=== PATIENT | male | born 1960 | race Caucasian/White ===

== ENCOUNTER 2016-05-20 10:08 | Inpatient (IN) ==
[2016-05-20] MEDS ORDERED: MORPHINE 4 MG/ML SYRINGE IVP PRN (10:21)
[2016-05-20] MEDS ORDERED: ATROPINE SULFATE PFS IVP PRN (10:21)
[2016-05-20] MEDS ORDERED: VISTARIL INJ IM PRN (10:21)
[2016-05-20] MEDS ORDERED: NITROSTAT SL PRN (10:21)
[2016-05-20] MEDS ORDERED: TYLENOL PO PRN (10:21)
[2016-05-20 10:42] VITALS: BMI 34.2
[2016-05-20] MEDS ORDERED: NON-FORMULARY MEDICATION (Nitroglycerin [Nitrostat] 0.3 MG) SL PRN ×22 (10:42)
[2016-05-20] MEDS ORDERED: VASOTEC IV IVP STA (10:43)
[2016-05-20] MEDS ORDERED: VASOTEC IV IVP PRN (10:43)
[2016-05-20] MEDS ORDERED: MINOXIDIL PO STA (10:43)
[2016-05-20 10:44] LABS: ABG BASE EXCESS 9 (-2.0-2.0); ABG PCO2 47.8 mmHg (35-45); ABG PH 7.447 (7.35-7.45); ABG TCO2 34 (22.0-28.0)
[2016-05-20] MEDS ORDERED: OXYCODONE HCL 60 MG PO SCH ×22 (10:44)
[2016-05-20] MEDS ORDERED: MORPHINE SULFATE 60 MG PO SCH (10:44)
[2016-05-20] MEDS ORDERED: VITAMIN B-12 IM SCH (11:00)
[2016-05-20] MEDS: XOPENEX 1.25 MG NEB SCH ×3 (11:14→23:34)
[2016-05-20 11:16] LABS: BASOPHILS # (AUTO) 0.1 K/uL (0-0.2); BASOPHILS % (AUTO) 0.4 % (0.0-3.0); EOSINOPHILS # (AUTO) 0.1 K/ul (0.0-0.7); EOSINOPHILS % (AUTO) 1.1 % (0.0-7.0); HEMOGLOBIN 14.6 g/dl (14.0-18.0); IMMATURE GRANULOCYTE % (AUTO) 0.3 % (0.0-5.0); LYMPHOCYTES % (AUTO) 17.9 (10.0-50.0); MEAN CORPUSCULAR HEMOGLOBIN 24.7 pg (27.0-31.0); MEAN CORPUSCULAR HGB CONC 31.1 (31.8-35.4); MEAN CORPUSCULAR VOLUME 79.5 fl (80.0-94.0); MONOCYTES # (AUTO) 0.6 K/uL (0.4-2.0); MONOCYTES % (AUTO) 5.5 (0-10); NEUTROPHILS # (AUTO) 8.6 K/ul (2.0-6.9); NEUTROPHILS % (AUTO) 74.8; PLATELET COUNT 174 10^3/uL (140-440); RED BLOOD COUNT 5.91 10^6/ul (4.70-6.10); WHITE BLOOD COUNT 11.42 K/ul (4.2-10.2)
[2016-05-20] MEDS: ROCEPHIN 1 GM in SODIUM CHLORIDE 100 ML IV SCH (11:22)
[2016-05-20] MEDS: TUSSIONEX PO SCH ×2 (11:23→20:21)
[2016-05-20] MEDS: SOLU-CORTEF 250 MG IVP SCH ×4 (11:26→20:30)
[2016-05-20] MEDS: OXYCODONE PO SCH ×2 (11:54→20:22)
[2016-05-20 12:01] LABS: ALBUMIN 3.6 g/dL (3.4-5.0); ALBUMIN/GLOBULIN RATIO 0.88; ANION GAP 14.2; BILIRUBIN,TOTAL 0.52 mg/dL (0.00-1.20); BUN/CREATININE RATIO 9.82; CALCIUM 9.5 mg/dL (8.2-10.2); CREATININE 1.12 mg/dL (0.60-1.10); POTASSIUM 3.2 mmol/L (3.5-5.1); TOTAL PROTEIN 7.7 g/dL (6.4-8.2); TROPONIN I 0.025 ng/ml (0.0000-0.4000)
[2016-05-20 12:27] LABS: CREATINE KINASE MB 3.8 ng/ml (0.0-3.6)
[2016-05-20] MEDS: ZITHROMAX 500 MG in SODIUM CHLORIDE 250 ML IV SCH (12:45)
[2016-05-20 13:17] LABS: BILIRUBIN,URINE Negative (NEGATIVE); KETONES,URINE Negative (NEGATIVE); LEUKOCYTE ESTERASE ,URINE Negative (NEGATIVE); NITRITE,URINE Negative (NEGATIVE); PROTEIN,URINE 1+ (NEGATIVE); URINE, BLOOD 2+ (NEGATIVE)
[2016-05-20 13:20] LABS: ADD URINE MICROSCOPIC YES
--- NOTE | 2016-05-20 13:44 | DI ---
Examination: Single radiographic image of the chest. Comparison: 07/22/2015. Reason for study: Hypertension. FINDINGS: Interpretation is somewhat limited by poor inspiratory volume. The cardiac silhouette is unchanged. A loop of large bowel is seen underneath the left hemidiaphragm that obscures evaluatio n of the left costophrenic angle. The right lung is clear. Old granulomas disease is seen througho ut the parenchyma. Impression: 1. No acute cardiopulmonary process is seen in the imaged portions of the chest. 2. Evaluation of the left costophrenic angle is limited secondary to overlying large intestine.
[2016-05-20 19:10] LABS: TROPONIN I 0.026 ng/ml (0.0000-0.4000)
[2016-05-20 19:15] LABS: CREATINE KINASE MB 2.8 ng/ml (0.0-3.6)
[2016-05-20] MEDS: PAMELOR PO SCH (20:16)
[2016-05-20] MEDS: DESYREL PO SCH (20:18)
[2016-05-20] MEDS: XANAX PO SCH (20:19)
[2016-05-20] MEDS: MS CONTIN PO SCH (20:20)
[2016-05-20] MEDS: AMBIEN PO SCH (20:21)
[2016-05-20] MEDS ORDERED: CATAPRES PO SCH (21:00)
[2016-05-20] MEDS ORDERED: PAMELOR PO SCH (21:00)
[2016-05-20] MEDS ORDERED: LOPRESSOR PO SCH (21:00)
[2016-05-20] MEDS ORDERED: NON-FORMULARY MEDICATION (Zolpidem Tartrate [Ambien] 10 MG) PO SCH (21:00)
[2016-05-20] MEDS ORDERED: NON-FORMULARY MEDICATION (Clonidine Hcl [Clonidine Hcl] 0.3 MG) PO SCH (21:00)
[2016-05-20] MEDS ORDERED: TRAZODONE HCL 150 MG PO SCH ×22 (21:00)
[2016-05-20] MEDS ORDERED: NORVASC PO SCH (21:00)
[2016-05-21] MEDS: XOPENEX 1.25 MG NEB SCH ×4 (05:04→22:50)
[2016-05-21] MEDS: SOLU-CORTEF 250 MG IVP SCH ×3 (06:49→22:50)
[2016-05-21] MEDS: LASIX TAB PO SCH (06:49)
[2016-05-21] MEDS: PROTONIX PO SCH (06:50)
[2016-05-21] MEDS ORDERED: ASPIRIN CHEWABLE PO SCH (08:00)
[2016-05-21] MEDS ORDERED: LOPRESSOR PO STA (08:20)
[2016-05-21] MEDS: OXYCODONE PO SCH ×3 (08:35→21:19)
[2016-05-21] MEDS: MS CONTIN PO SCH ×2 (08:36→21:18)
[2016-05-21] MEDS: TUSSIONEX PO SCH ×2 (08:36→21:13)
[2016-05-21] MEDS: LIPITOR PO SCH (08:36)
[2016-05-21] MEDS: ASPIRIN EC PO SCH (08:37)
[2016-05-21] MEDS: LEXAPRO PO SCH (08:37)
[2016-05-21] MEDS: ALDACTONE PO SCH (08:37)
[2016-05-21] MEDS: ZAROXOLYN PO SCH (08:37)
[2016-05-21] MEDS: K-DUR PO SCH ×3 (08:38→21:17)
[2016-05-21] MEDS: PLAVIX PO SCH (08:38)
[2016-05-21] MEDS: XANAX PO SCH ×2 (08:38→21:18)
[2016-05-21] MEDS: ROCEPHIN 1 GM in SODIUM CHLORIDE 100 ML IV SCH (08:38)
[2016-05-21 08:39] LABS: BASOPHILS % (AUTO) 0.2 % (0.0-3.0); HEMATOCRIT 43.3 % (42.0-52.0); HEMOGLOBIN 13.5 g/dl (14.0-18.0); IMMATURE GRANULOCYTE % (AUTO) 0.6 % (0.0-5.0); LYMPHOCYTES # (AUTO) 1.1 K/uL (0.60-3.4); MEAN CORPUSCULAR HGB CONC 31.2 (31.8-35.4); MEAN CORPUSCULAR VOLUME 80.2 fl (80.0-94.0); MONOCYTES # (AUTO) 0.3 K/uL (0.4-2.0); MONOCYTES % (AUTO) 2.3 (0-10); NEUTROPHILS # (AUTO) 11.1 K/ul (2.0-6.9); NEUTROPHILS % (AUTO) 87.9; PLATELET COUNT 176 10^3/uL (140-440)
[2016-05-21] MEDS: CATAPRES PO SCH ×2 (08:39→21:15)
[2016-05-21 08:59] LABS: ALBUMIN/GLOBULIN RATIO 0.83; ANION GAP 13.2; BILIRUBIN,TOTAL 0.4 mg/dL (0.00-1.20); BUN/CREATININE RATIO 9.31; CREATININE 2.04 mg/dL (0.60-1.10); POTASSIUM 3.2 mmol/L (3.5-5.1); TOTAL PROTEIN 6.6 g/dL (6.4-8.2)
[2016-05-21] MEDS ORDERED: NON-FORMULARY MEDICATION (Atorvastatin Calcium [Lipitor] 80 MG) PO SCH ×22 (09:00)
[2016-05-21] MEDS ORDERED: PANTOPRAZOLE SODIUM 20 MG PO SCH ×22 (09:00)
[2016-05-21] MEDS: ZITHROMAX 500 MG in SODIUM CHLORIDE 250 ML IV SCH (09:42)
--- NOTE | 2016-05-21 11:54 | HP ---
DATE OF SERVICE: 05/20/16 REASON FOR HOSPITALIZATION: Cough and congestion times four days with fever HISTORY OF PRESENT ILLNESS: This is a 55-year-old male with complaints of cough and congestion with fever times four days, fatigue, tired times three days. Cough is productive of yellowish sputum. The patient's appetite is not good with left pleuritic pain. Blood pressure is elevated without symptoms of CAD. REVIEW OF SYSTEMS: CONSTITUTIONAL: Fever and fatigue. HEENT: Sinus drainage. No sore throat. RESPIRATORY: Cough and congestion. No hemoptysis. CARDIOVASCULAR: Shortness of breath. Atypical chest pain for coronary artery disease, pleuritic in type. No angina, CHF symptoms, or palpitations. GASTROINTESTINAL: No melena or abdominal pain. No GERD. GENITOURINARY: No hematuria, no prostatism, no polyuria. 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 No blackout, no headache, no double vision. MUSCULOSKELETAL: Osteoarthritis pain. No joint swelling. ENDOCRINE: No weight loss, no weight gain. SKIN: Not dry, no rash. PSYCHIATRIC: Anxious. No depression, no suicidal thoughts, no homicidal thoughts. PAST MEDICAL HISTORY: Hypertension Chronic kidney disease Migraines Chronic back pain [place] COPD Dyslipidemia Stenosis with stent CAD B12 deficiency anemia Depression Sleep apnea on CPAP PAST SURGICAL HISTORY: Back surgery 2000 Renal artery stent 2000, 2002 and 2006 Gallbladder 2004 Hernia 2004 SOCIAL HISTORY: Smoker - one pack per day for 25 years; ; no alcohol use. No ilicit drug use. Three children. Disabled. FAMILY HISTORY: Father age 69 with CVA and hypertension. Mother at age 68 with [place]. Two brothers and three sisters. MEDICATIONS: (Home) Atorvastatin (Lipitor) 80 mg p.o. daily Aspirin 81 mg p.o. daily with meal Furosemide (Lasix) 40 mg p.o. daily Nitroglycerin 0.3 mg SL p.r.n. Amlodipine (Norvasc) 5 mg p.o. b.i.d. Trazodone (Oleptro ER) 150 mg p.o. bedtime Clopidogrel (Plavix) 75 mg p.o. daily Alprazolam (Xanax) 0.5 mg p.o. b.i.d. Metoprolol (Lopressor) 100 mg p.o. b.i.d. Escitalopram (Lexapro) 20 mg p.o. daily Oxycodone (Oxy-IR) 60 mg p.o. t.i.d. Morphine Sulfate (MS Contin) 60 mg p.o. q.12hr Nortriptyline (Pamelor) 50 mg p.o. bedtime Pantoprazole (Protonix) 20 mg p.o. daily Metolazone (Zaroxolyn) 2.5 mg p.o. daily Cyanocobalamin (Vitamin B12) 1000 mg IM monthly Zolpidem (Ambien) 10 mg p.o. bedtime Spironolactone (Aldactone) 25 mg p.o. daily Clonidine 0.3 mg p.o. b.i.d. ALLERGIES: LISINOPRIL, BACLOFEN PHYSICAL EXAMINATION: V/S: Pulse 108, B/P 202/120, temperature 99 degrees, 02 sat 95%. Weight 259.4 pounds, height 6'1". GENERAL APPEARANCE: Oriented times three. Pallor positive. Dry skin. HEENT: Normal. NECK: No JVP, no bruits. RESPIRATORY: Decreased breath sounds eft side. CARDIOVASCULAR: S1, S2, no S3, no murmurs. No cyanosis, clubbing. No ascites. GI/ABDOMEN: No tenderness. Bowel sounds are active. EXTREMITIES: No edema, pulses +1, equal. 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 RECTAL/PROSTATE: Colonoscopy [address] Shaver. Prostate 09/13 (0.5), PSA (2.1) Dr. Nolasco follows. ASSESSMENT: 1. LEFT PNEUMONITIS/BRONCHITIS 2. SEVERE HYPERTENSION 3. DEHYDRATION 4. COPD/SMOKING 5. HISTORY OF HYPERTENSION 6. MIGRAINE HEADACHE, DR. SANTOS 7. DYSLIPIDEMIA 8. DEPRESSION 9. CKD 10. CAD STATUS POST STENTS 11. SLEEP APNEA - CPAP 12. L-SPINE SURGERY 13. LEG EDEMA PLAN: 1. Admit with routine telemetry orders 2. Solu-Cortef 125 mg IV now and q.8hourly 3. Rocephin 1 gm IVPB q.24hourly 4. Zithromax 500 mg p.o. daily times three days 5. Sputum for C & S 6. Blood cultures times two 7. Nebs - Xopenex q.i.d. 8. Elevate legs 9. Continue all medications 10. Daily weight 11. Tussionex one teaspoon p.o. b.i.d. 12. BNP, TSH 13. Daily labs 14. Continue all medications EDUCATION CARRIED OUT ABOUT: Diabetes mellitus and its complications, hypertension and its complications, CAD and its risk factors. Counseling for smoking done. JNC for hypertension discussed. ADA guidelines for lipids, BP and A1C. TIME SPENT: More than 70 minutes. MTDD
--- NOTE | 2016-05-21 13:42 | PCM.PROG ---
Attending Provider: ATTENDING PROVIDER: Dr. CARLOS DE LA PAZ DATE OF SERVICE: 05/21/16 SUBJECTIVE: This 55 year old WHITE/ M was hospitalized 05/20/16. The patient is hospitalized with bronchitis/pneumonitis, severe hypertension and dehydration. The patient's condition improved remarkably. Skin turgor is better, appetite is better. No bronchitis symptoms now. The problem currently is hypotension which is asymptomatic. Will scale back all medications. REVIEW OF SYSTEMS: CONSTITUTIONAL: No night sweats. No fatigue, malaise, lethargy. No fever or chills. HEENT: Eyes: No visual changes. No eye pain. No eye discharge. ENT: No runny nose. No epistaxis. No sinus pain. No odynophagia. No congestion. RESPIRATORY: No cough, no congestion. No hemoptysis. CARDIOVASCULAR: No angina symptoms. No CHF symptoms. No atypical chest pain for CAD. No palpitations. No shortness of breath. GASTROINTESTINAL: Appetite is better. No abdominal pain. No nausea or vomiting. No diarrhea or constipation. No hematemesis. No hematochezia. GENITOURINARY: No urgency. No frequency. No dysuria. No hematuria. No obstructive symptoms. No discharge. No pain. No significant abnormal bleeding. MUSCULOSKELETAL: No musculoskeletal pain; no joint swelling. NEUROLOGICAL: Awake, alert, oriented to time, place and person. No headache. No neck pain. No syncope. No seizures. No dizziness. PSYCHIATRIC: Not anxious. No depression. No suicidal thoughts. No homicidal thoughts. SKIN: No rash. No lesions. No wounds. ENDOCRINE: No unexplained weight loss. No weight gain. HEMATOLOGIC/LYMPHATIC: No anemia. No purpura. No petechiae. No prolonged or excessive bleeding. No palpable lymph nodes. PHYSICAL EXAMINATION: GENERAL: The patient is awake, alert and oriented, sitting in bed in no distress. VITAL SIGNS: Temperature 96.8 F, Pulse 54, Respiratory Rate 20, BP 97/53, Pulse Ox 96% HEENT: Head normocephalic, atraumatic. Eyes: Extraocular muscles are intact. Pupils are equal, round and reactive to light and accommodation. Ears: No lesions. Nose appeared normal. Throat: No exudate or erythema. NECK: Supple. No JVD, no carotid bruit. No lymphadenopathy or thyromegaly. LUNGS: Decreased breath sounds. Clear to auscultation. Percussion note normal. Chest symmetrical. HEART: S1, S2, no S3. No murmurs. No cyanosis or clubbing. No ascites. Pulses: Dorsalis pedis and posterior tibial pulses +1 to +2 both sides. ABDOMEN: Soft. Non-tender. Bowel sounds active. No CVA tenderness. No mass felt. EXTREMITIES: No edema. Full range of motion of all extremities, equal. NEUROLOGIC: No focal deficit. Cranial nerves II through XII are grossly intact. No headache, no double vision or headache. SKIN: Not dry. Intact. Turgor-normal. LYMPHATIC: No palpable lymph nodes/no lymphedema. MUSCULOSKELETAL: Normal joints with no swelling. Muscle tone is normal. LAB REVIEW: 05/20/16 11:00 05/20/16 11:00 05/20/16 18:30: Total Creatine Kinase 165, CK-MB (CK-2) 2.8, CK-MB (CK-2) % 1.43604, Myoglobin 112, Troponin I 0.0260 05/20/16 13:09: Urine Color Yellow, Urine Clarity Clear, Urine pH 7.0, Ur Specific [place] 1.015, Urine Protein 1+, Urine Glucose (UA) Negative, Urine Ketones Negative, Urine Blood 2+, Urine Nitrite Negative, Urine Bilirubin Negative, Urine Urobilinogen 0.2, Ur Leukocyte Esterase Negative, Urine Microscopic RBC 10-20, Urine Microscopic WBC 0-2, Ur Squamous Epith Cells 2-5 05/20/16 11:00: WBC 11.42 H, RBC 5.91, Hgb 14.6, Hct 47.0, MCV 79.5 L, MCH 24.7 L, MCHC 31.1 L, RDW Coeff of Lety 15.0 H, Plt Count 174, Immature Gran % (Auto) 0.3, Neut % (Auto) 74.8, Lymph % (Auto) 17.9, [place] % (Auto) 5.5, Eos % (Auto) 1.1, Baso % (Auto) 0.4, Immature Gran # (Auto) 0.0, Neut # 8.6 H, Lymph # 2.0, [place] # 0.6, Eos # 0.1, Baso # 0.1, Sodium 139, Potassium 3.2 L, Chloride 94 L, Carbon Dioxide 34 H, Anion Gap 14.2, BUN 11, Creatinine 1.12 H, Estimated GFR ( MDRD) 68.00, BUN/Creatinine Ratio 9.82, Glucose 83, Calcium 9.5, Total Bilirubin 0.52, AST 21, ALT 13, Alkaline Phosphatase 117, Total Creatine Kinase 210, CK-MB (CK-2) 3.8 H, CK-MB (CK-2) % 1.50079, Myoglobin 133, Troponin I 0.0250, B-Natriuretic Peptide 129 H, Total Protein 7.7, Albumin 3.6, Globulin 4.1, Albumin/Globulin Ratio 0.88, TSH 1.593 05/20/16 10:40: Puncture Site R rad, O2 Saturation 92.0 L, ABG pH 7.447, ABG pCO2 47.8 H, ABG pO2 61.0 L, ABG HCO3 33.0 H, ABG Total CO2 34 H, ABG Base Excess 9 H, Samuel Test +, FiO2 % 21.0 ASSESSMENT: 1. Bronchitis/pneumonitis resolving 2. Hypertension controlled 3. Chronic kidney disease controlled 4. Hypokalemia, will give K-Dur 20 mEq t.i.d. PLAN: 1. Daily CBC 2. Discontinue IV fluids 3. Lopressor 50 mg this morning instead of 100 4. Hold Minoxidil 5. Hold Norvasc 6. Catapres 0.2 mg twice a day but hold if blood pressure is less than 130 7. Monitor blood pressure Plan and coordination of the patient's care discussed in the presence of District Sales Leader and nurse. CONDITION: Stable SCRIBED BY: DIANA DIXON Template Fitter scribed while in presence of service performed by Dr. CARLOS DE LA PAZ on 05/21/16 ([id number])
[2016-05-21] MEDS: LOPRESSOR PO SCH (21:16)
[2016-05-21] MEDS: DESYREL PO SCH (21:17)
[2016-05-21] MEDS: PAMELOR PO SCH (21:20)
[2016-05-21] MEDS: AMBIEN PO SCH (21:21)
[2016-05-22] MEDS: XOPENEX 1.25 MG NEB SCH ×4 (05:01→23:08)
[2016-05-22] MEDS: SOLU-CORTEF 250 MG IVP SCH ×3 (06:00→21:09)
[2016-05-22 06:14] LABS: BASOPHILS % (AUTO) 0.1 % (0.0-3.0); HEMATOCRIT 42.1 % (42.0-52.0); HEMOGLOBIN 13.4 g/dl (14.0-18.0); IMMATURE GRANULOCYTE % (AUTO) 0.4 % (0.0-5.0); LYMPHOCYTES # (AUTO) 1.8 K/uL (0.60-3.4); LYMPHOCYTES % (AUTO) 12.5 (10.0-50.0); MEAN CORPUSCULAR HEMOGLOBIN 24.7 pg (27.0-31.0); MEAN CORPUSCULAR HGB CONC 31.8 (31.8-35.4); MEAN CORPUSCULAR VOLUME 77.7 fl (80.0-94.0); MONOCYTES # (AUTO) 0.4 K/uL (0.4-2.0); MONOCYTES % (AUTO) 2.7 (0-10); NEUTROPHILS # (AUTO) 11.8 K/ul (2.0-6.9); NEUTROPHILS % (AUTO) 84.3; PLATELET COUNT 189 10^3/uL (140-440); RED BLOOD COUNT 5.42 10^6/ul (4.70-6.10); WHITE BLOOD COUNT 14.01 K/ul (4.2-10.2)
[2016-05-22] MEDS: LASIX TAB PO SCH (06:14)
[2016-05-22] MEDS: PROTONIX PO SCH (06:14)
[2016-05-22] MEDS: OXYCODONE PO SCH ×3 (06:15→21:48)
[2016-05-22 06:34] LABS: ALBUMIN/GLOBULIN RATIO 0.83; ANION GAP 13.3; BILIRUBIN,TOTAL 0.42 mg/dL (0.00-1.20); BUN/CREATININE RATIO 16.66; CALCIUM 8.9 mg/dL (8.2-10.2); CREATININE 1.44 mg/dL (0.60-1.10); POTASSIUM 3.3 mmol/L (3.5-5.1); TOTAL PROTEIN 6.6 g/dL (6.4-8.2)
[2016-05-22] MEDS: ASPIRIN EC PO SCH (09:07)
[2016-05-22] MEDS: MS CONTIN PO SCH ×2 (09:08→20:26)
[2016-05-22] MEDS: PLAVIX PO SCH (09:08)
[2016-05-22] MEDS: LEXAPRO PO SCH (09:10)
[2016-05-22] MEDS: LIPITOR PO SCH (09:11)
[2016-05-22] MEDS: ZAROXOLYN PO SCH (09:13)
[2016-05-22] MEDS: K-DUR PO SCH ×4 (09:15→20:26)
[2016-05-22] MEDS: CATAPRES PO SCH ×2 (09:16→20:25)
[2016-05-22] MEDS: ALDACTONE PO SCH (09:16)
[2016-05-22] MEDS: TUSSIONEX PO SCH ×2 (09:17→20:27)
[2016-05-22 09:25] LABS: BILIRUBIN,URINE Negative (NEGATIVE); KETONES,URINE Negative (NEGATIVE); LEUKOCYTE ESTERASE ,URINE Negative (NEGATIVE); NITRITE,URINE Negative (NEGATIVE); PH,URINE 5.5 (5-9); PROTEIN,URINE Negative (NEGATIVE); URINE, BLOOD Trace-lysed (NEGATIVE)
[2016-05-22 09:27] LABS: ADD URINE MICROSCOPIC YES
[2016-05-22] MEDS: ROCEPHIN 1 GM in SODIUM CHLORIDE 100 ML IV SCH (09:42)
[2016-05-22] MEDS: FLOMAX PO SCH (10:01)
[2016-05-22] MEDS: XANAX PO SCH ×2 (10:03→20:27)
[2016-05-22] MEDS: LOPRESSOR PO SCH ×2 (10:04→20:25)
[2016-05-22] MEDS: ZITHROMAX 500 MG in SODIUM CHLORIDE 250 ML IV SCH (10:53)
[2016-05-22] MEDS: MIRALAX PO SCH (13:00)
[2016-05-22] MEDS: PAMELOR PO SCH (20:24)
[2016-05-22] MEDS: DESYREL PO SCH (20:25)
[2016-05-22] MEDS: AMBIEN PO SCH (20:26)
[2016-05-23] MEDS: SOLU-CORTEF 250 MG IVP SCH ×3 (04:07→20:36)
[2016-05-23] MEDS: XOPENEX 1.25 MG NEB SCH ×3 (05:06→17:07)
[2016-05-23] MEDS: OXYCODONE PO SCH ×3 (06:12→22:11)
[2016-05-23] MEDS: LASIX TAB PO SCH (06:12)
[2016-05-23] MEDS: PROTONIX PO SCH (06:12)
[2016-05-23 07:31] LABS: BASOPHILS % (AUTO) 0.1 % (0.0-3.0); HEMATOCRIT 40.8 % (42.0-52.0); HEMOGLOBIN 13.1 g/dl (14.0-18.0); IMMATURE GRANULOCYTE % (AUTO) 0.7 % (0.0-5.0); LYMPHOCYTES # (AUTO) 1.2 K/uL (0.60-3.4); LYMPHOCYTES % (AUTO) 11.4 (10.0-50.0); MEAN CORPUSCULAR HEMOGLOBIN 24.7 pg (27.0-31.0); MEAN CORPUSCULAR HGB CONC 32.1 (31.8-35.4); MONOCYTES # (AUTO) 0.3 K/uL (0.4-2.0); NEUTROPHILS # (AUTO) 8.8 K/ul (2.0-6.9); NEUTROPHILS % (AUTO) 84.8; PLATELET COUNT 177 10^3/uL (140-440); WHITE BLOOD COUNT 10.33 K/ul (4.2-10.2)
[2016-05-23 08:07] LABS: ALBUMIN/GLOBULIN RATIO 0.83; ANION GAP 11.8; BILIRUBIN,TOTAL 0.37 mg/dL (0.00-1.20); BUN/CREATININE RATIO 20.66; CALCIUM 8.7 mg/dL (8.2-10.2); CREATININE 1.21 mg/dL (0.60-1.10); POTASSIUM 3.8 mmol/L (3.5-5.1); TOTAL PROTEIN 6.6 g/dL (6.4-8.2)
[2016-05-23] MEDS: MS CONTIN PO SCH ×2 (08:19→20:37)
[2016-05-23] MEDS: CATAPRES PO SCH ×2 (08:19→20:37)
[2016-05-23] MEDS: FLOMAX PO SCH (08:19)
[2016-05-23] MEDS: LIPITOR PO SCH (08:19)
[2016-05-23] MEDS: LOPRESSOR PO SCH ×2 (08:19→20:38)
[2016-05-23] MEDS: PLAVIX PO SCH (08:20)
[2016-05-23] MEDS: LEXAPRO PO SCH (08:20)
[2016-05-23] MEDS: ZAROXOLYN PO SCH (08:20)
[2016-05-23] MEDS: ALDACTONE PO SCH (08:20)
[2016-05-23] MEDS: XANAX PO SCH ×2 (08:20→20:37)
[2016-05-23] MEDS: K-DUR PO SCH ×4 (08:20→20:38)
[2016-05-23] MEDS: ASPIRIN EC PO SCH (08:20)
[2016-05-23] MEDS: TUSSIONEX PO SCH ×2 (08:21→20:36)
[2016-05-23] MEDS: ROCEPHIN 1 GM in SODIUM CHLORIDE 100 ML IV SCH (08:21)
[2016-05-23] MEDS: MIRALAX PO SCH (08:21)
[2016-05-23] MEDS ORDERED: CITRATE OF MAGNESIA PO STA (12:03)
[2016-05-23] MEDS ORDERED: SODIUM CHLORIDE 500 ML IV SCH (12:30)
[2016-05-23] MEDS: SODIUM CHLORIDE 1,000 ML IV SCH (18:56)
[2016-05-23] MEDS: AMBIEN PO SCH (20:37)
[2016-05-23] MEDS: DESYREL PO SCH (20:38)
[2016-05-23] MEDS: PAMELOR PO SCH (20:39)
[2016-05-24] MEDS: XOPENEX 1.25 MG NEB SCH ×5 (00:09→23:24)
[2016-05-24] MEDS: SOLU-CORTEF 250 MG IVP SCH ×3 (05:41→20:13)
[2016-05-24] MEDS: PROTONIX PO SCH (05:41)
[2016-05-24] MEDS: OXYCODONE PO SCH ×3 (05:42→21:42)
[2016-05-24 07:22] LABS: BASOPHILS % (AUTO) 0.1 % (0.0-3.0); HEMATOCRIT 42.1 % (42.0-52.0); HEMOGLOBIN 13.5 g/dl (14.0-18.0); IMMATURE GRANULOCYTE % (AUTO) 0.2 % (0.0-5.0); LYMPHOCYTES # (AUTO) 1.4 K/uL (0.60-3.4); LYMPHOCYTES % (AUTO) 16.1 (10.0-50.0); MEAN CORPUSCULAR HEMOGLOBIN 24.8 pg (27.0-31.0); MEAN CORPUSCULAR HGB CONC 32.1 (31.8-35.4); MEAN CORPUSCULAR VOLUME 77.2 fl (80.0-94.0); MONOCYTES # (AUTO) 0.5 K/uL (0.4-2.0); MONOCYTES % (AUTO) 6.1 (0-10); NEUTROPHILS # (AUTO) 6.6 K/ul (2.0-6.9); NEUTROPHILS % (AUTO) 77.5; PLATELET COUNT 187 10^3/uL (140-440); RED BLOOD COUNT 5.45 10^6/ul (4.70-6.10); WHITE BLOOD COUNT 8.57 K/ul (4.2-10.2)
[2016-05-24 07:56] LABS: ALBUMIN 2.7 g/dL (3.4-5.0); ALBUMIN/GLOBULIN RATIO 0.77; ANION GAP 9.9; BILIRUBIN,TOTAL 0.28 mg/dL (0.00-1.20); BUN/CREATININE RATIO 20.17; CALCIUM 8.4 mg/dL (8.2-10.2); CREATININE 1.14 mg/dL (0.60-1.10); POTASSIUM 3.9 mmol/L (3.5-5.1); TOTAL PROTEIN 6.2 g/dL (6.4-8.2)
[2016-05-24] MEDS: MS CONTIN PO SCH ×2 (08:32→21:42)
[2016-05-24] MEDS: XANAX PO SCH ×2 (08:32→21:42)
[2016-05-24] MEDS: MIRALAX PO SCH (08:32)
[2016-05-24] MEDS: ROCEPHIN 1 GM in SODIUM CHLORIDE 100 ML IV SCH (08:32)
[2016-05-24] MEDS: TUSSIONEX PO SCH ×2 (08:33→21:43)
[2016-05-24] MEDS: LOPRESSOR PO SCH ×2 (08:33→21:40)
[2016-05-24] MEDS: K-DUR PO SCH ×4 (08:33→21:41)
[2016-05-24] MEDS: PLAVIX PO SCH (08:34)
[2016-05-24] MEDS: ASPIRIN EC PO SCH (08:34)
[2016-05-24] MEDS: LIPITOR PO SCH (08:34)
[2016-05-24] MEDS: LEXAPRO PO SCH (08:34)
[2016-05-24] MEDS: FLOMAX PO SCH (08:34)
[2016-05-24] MEDS: CATAPRES PO SCH ×2 (08:54→21:41)
[2016-05-24] MEDS ORDERED: CITRATE OF MAGNESIA PO STA (10:01)
[2016-05-24] MEDS ORDERED: DULCOLAX RC STA (10:01)
[2016-05-24] MEDS: SODIUM CHLORIDE 1,000 ML IV SCH ×2 (10:22→23:42)
[2016-05-24] MEDS ORDERED: DULCOLAX RC ONE (12:52)
[2016-05-24] MEDS: DESYREL PO SCH (21:41)
[2016-05-24] MEDS: PAMELOR PO SCH (21:41)
[2016-05-24] MEDS: AMBIEN PO SCH (21:43)
[2016-05-24] MEDS: OMNICEF PO SCH (21:43)
[2016-05-25] MEDS: XOPENEX 1.25 MG NEB SCH ×4 (05:04→23:24)
[2016-05-25 05:06] LABS: BASOPHILS % (AUTO) 0.1 % (0.0-3.0); EOSINOPHILS % (AUTO) 0.1 % (0.0-7.0); HEMATOCRIT 42.9 % (42.0-52.0); HEMOGLOBIN 13.4 g/dl (14.0-18.0); IMMATURE GRANULOCYTE % (AUTO) 0.4 % (0.0-5.0); LYMPHOCYTES # (AUTO) 1.9 K/uL (0.60-3.4); LYMPHOCYTES % (AUTO) 18.9 (10.0-50.0); MEAN CORPUSCULAR HEMOGLOBIN 24.6 pg (27.0-31.0); MEAN CORPUSCULAR HGB CONC 31.2 (31.8-35.4); MEAN CORPUSCULAR VOLUME 78.7 fl (80.0-94.0); MONOCYTES # (AUTO) 0.7 K/uL (0.4-2.0); MONOCYTES % (AUTO) 6.8 (0-10); NEUTROPHILS # (AUTO) 7.5 K/ul (2.0-6.9); NEUTROPHILS % (AUTO) 73.7; PLATELET COUNT 184 10^3/uL (140-440); RED BLOOD COUNT 5.45 10^6/ul (4.70-6.10); WHITE BLOOD COUNT 10.22 K/ul (4.2-10.2)
[2016-05-25 05:29] LABS: ALBUMIN 2.6 g/dL (3.4-5.0); ALBUMIN/GLOBULIN RATIO 0.81; ANION GAP 9.6; BILIRUBIN,TOTAL 0.21 mg/dL (0.00-1.20); CALCIUM 8.4 mg/dL (8.2-10.2); CREATININE 1.05 mg/dL (0.60-1.10); POTASSIUM 4.6 mmol/L (3.5-5.1); TOTAL PROTEIN 5.8 g/dL (6.4-8.2)
[2016-05-25] MEDS: SOLU-CORTEF 250 MG IVP SCH ×3 (05:36→20:18)
[2016-05-25] MEDS: PROTONIX PO SCH (05:36)
[2016-05-25] MEDS: OXYCODONE PO SCH ×3 (06:59→22:22)
--- NOTE | 2016-05-25 09:20 | PN ---
DATE OF SERVICE: 05/24/16 SUBJECTIVE: The patient is a 55 year old white male hospitalized with bronchitis/ pneumonitis which has practically resolved and all under control with antibiotics and steroids and NEBS treatment. The patient's other problem was severe, hypertension which is under control at present time. Blood pressure 126/ 70. The patient has been taken off some of the medication because he was noted to be hypotension. The problem with the patient is that he doesn't take his medications regularly but as soon as you enter him into the hospital and give him the same medication he becomes hypotensive. The patient is a heavy smoker. Counseling for smoking done. The patient has good urine output. REVIEW OF SYSTEMS: CONSTITUTIONAL: No night sweats. No fatigue, malaise, lethargy. No fever or chills. HEENT: Eyes: No visual changes. No eye pain. No eye discharge. ENT: No runny nose. No epistaxis. No sinus pain. No sore throat. No odynophagia. No congestion. RESPIRATORY: No cough, no congestion. No hemoptysis. CARDIOVASCULAR: No angina symptoms. No CHF symptoms. No atypical chest pain for CAD. No palpitations. No shortness of breath. GASTROINTESTINAL: No abdominal pain. No nausea or vomiting. No diarrhea or constipation. No hematemesis. No hematochezia. GENITOURINARY: No urgency. No frequency. No dysuria. No hematuria. No obstructive symptoms. No discharge. No pain. No significant abnormal bleeding. MUSCULOSKELETAL: No musculoskeletal pain; no joint swelling. NEUROLOGICAL: No headache. No neck pain. No syncope. No seizures. No dizziness. PSYCHIATRIC: Not anxious. No depression. No suicidal thoughts. No homicidal thoughts. SKIN: No rash. No lesions. No wounds. ENDOCRINE: No unexplained weight loss. No weight gain. HEMATOLOGIC/LYMPHATIC: No anemia. No purpura. No petechiae. No prolonged or excessive bleeding. No palpable lymph nodes. PHYSICAL EXAMINATION: GENERAL: The patient is oriented to time, place and person. VITAL SIGNS: Temperature 97.6, pulse 44-50, respiratory rate 12, blood pressure 124/70 and pulse ox 100%. HEENT: Head normocephalic, atraumatic. Eyes: Extraocular muscles are intact. Pupils are equal, round and reactive to light and accommodation. Ears: No lesions. Nose appeared normal. Throat: No exudate or erythema. NECK: Supple. No JVD, no carotid bruit. No lymphadenopathy or thyromegaly. LUNGS: Decreased breath sounds but clear to auscultation. Percussion note normal. Chest symmetrical. HEART: S1, S2, no S3. No murmurs. No cyanosis or clubbing. No ascites. Pulses: Dorsalis pedis and posterior tibial pulses +1 to +2 both sides. ABDOMEN: Soft. Nontender. Bowel sounds active. No CVA tenderness. No mass felt. EXTREMITIES: No edema. Full range of motion of all extremities, equal. NEUROLOGIC: No focal deficit. Cranial nerves II through XII are grossly intact. No headache, no double vision or headache. SKIN: Not dry. Intact. Turgor - normal. LYMPHATIC: No palpable lymph nodes/no lymphedema. MUSCULOSKELETAL: Normal joints with no swelling. Muscle tone is normal. LABS: HGb 13.5, hct 42, WBC 8,500 normal differential, creatinine 1.1, BUN 23, potassium 3.9 and sodium 129. ASSESSMENT: 1. Hyponatremia, seems to be resolving 2. Bronchitis, under control 3. Hypertension, under control 4. Hypotension, under control PLAN: 1. Changes in medication as discussed previously 2. The patient is advised to lose weight, his BMI 34 3. Counseling for smoking done 4. Advised not to drink too much soda pop or fluids 5. Hyponatremia with a lot of fluid intake discussed. CONDITION: Stable, the patient may require echocardiogram if not done in past 6- 8 months. TIME SPENT: More than 30 minutes. Plan and coordination of the patient's care discussed in the presence of nurse. REENA
[2016-05-25] MEDS: ASPIRIN EC PO SCH (09:39)
[2016-05-25] MEDS: LEXAPRO PO SCH (09:40)
[2016-05-25] MEDS: FLOMAX PO SCH (09:40)
[2016-05-25] MEDS: K-DUR PO SCH ×4 (09:40→20:28)
[2016-05-25] MEDS: CATAPRES PO SCH ×2 (09:40→20:28)
[2016-05-25] MEDS: LIPITOR PO SCH (09:42)
[2016-05-25] MEDS: LOPRESSOR PO SCH ×2 (09:43→20:29)
[2016-05-25] MEDS: MS CONTIN PO SCH ×2 (09:44→20:28)
[2016-05-25] MEDS: MIRALAX PO SCH (09:45)
[2016-05-25] MEDS: OMNICEF PO SCH ×2 (09:45→20:30)
[2016-05-25] MEDS: PLAVIX PO SCH (09:46)
[2016-05-25] MEDS: XANAX PO SCH ×2 (09:46→20:30)
[2016-05-25] MEDS: TUSSIONEX PO SCH ×2 (09:47→20:27)
--- NOTE | 2016-05-25 11:31 | PN ---
DATE OF SERVICE: 05/23/16 SUBJECTIVE: The patient is a 55 year old white male hospitalized with pneumonitis/ bronchitis, severe hypertension and dehydration. The patient's dehydration has resolved and pneumonitis and bronchitis is a lot better. His new problems are hyponatremia and his hypokalemia has resolved. Patient's blood pressure is 134/ 83 this morning. His noted to be in dary rhythm with 45 which has has been in bradycardia for a long time and has tolerated it very well. He is Lopressor 100mg twice a day and we will try to decrease the dose to 75mg twice a day and also will discontinue all the diarrhetics because of hyponatremia and put him on 1,000cc normal saline 70cc per hour and also will put him on 1,500cc fluid restriction. He drinks a lot of soda pop and a lot of fluid during the day time along with his aggressive diarrhetic therapy for his fluid retention and hypertension. REVIEW OF SYSTEMS: CONSTITUTIONAL: No night sweats. No fatigue, malaise, lethargy. No fever or chills. HEENT: Eyes: No visual changes. No eye pain. No eye discharge. ENT: No runny nose. No epistaxis. No sinus pain. No sore throat. No odynophagia. No congestion. RESPIRATORY: Mild cough, no congestion. No hemoptysis. CARDIOVASCULAR: No angina symptoms. No CHF symptoms. No atypical chest pain for CAD. No palpitations. No shortness of breath. GASTROINTESTINAL: No abdominal pain. No nausea or vomiting. No diarrhea or constipation. No hematemesis. No hematochezia. GENITOURINARY: No urgency. No frequency. No dysuria. No hematuria. No obstructive symptoms. No discharge. No pain. No significant abnormal bleeding. MUSCULOSKELETAL: No musculoskeletal pain; no joint swelling. NEUROLOGICAL: No headache. No neck pain. No syncope. No seizures. No dizziness. PSYCHIATRIC: Not anxious. No depression. No suicidal thoughts. No homicidal thoughts. SKIN: No rash. No lesions. No wounds. ENDOCRINE: No unexplained weight loss. No weight gain. HEMATOLOGIC/LYMPHATIC: No anemia. No purpura. No petechiae. No prolonged or excessive bleeding. No palpable lymph nodes. PHYSICAL EXAMINATION: GENERAL: The patient is oriented to time, place and person. VITAL SIGNS: Temperature 97.6, pulse 46, respiratory rate 17, blood pressure 134/80 and pulse ox 95%. HEENT: Head normocephalic, atraumatic. Eyes: Extraocular muscles are intact. Pupils are equal, round and reactive to light and accommodation. Ears: No lesions. Nose appeared normal. Throat: No exudate or erythema. NECK: Supple. No JVD, no carotid bruit. No lymphadenopathy or thyromegaly. LUNGS: Decreased breath sounds but clear to auscultation. Percussion note normal. Chest symmetrical. HEART: S1, S2, no S3. No murmurs. No cyanosis or clubbing. No ascites. Pulses: Dorsalis pedis and posterior tibial pulses +1 to +2 both sides. ABDOMEN: Soft. Nontender. Bowel sounds active. No CVA tenderness. No mass felt. EXTREMITIES: No edema. Full range of motion of all extremities, equal. NEUROLOGIC: No focal deficit. Cranial nerves II through XII are grossly intact. No headache, no double vision or headache. SKIN: Not dry. Intact. Turgor - normal. LYMPHATIC: No palpable lymph nodes/no lymphedema. MUSCULOSKELETAL: Normal joints with no swelling. Muscle tone is normal. LABS: Hgb 13.1, hct 40, WBC 10,000 normal differential, creatinine 1.2, BUN 25, potassium 3.8 and glucose 123. ASSESSMENT: 1. Pneumonitis/ bronchitis, resolved 2. Hypertension, controlled 3. Hyponatremia, new problem. Will treat according to what I mentioned in the note earlier 4. Hypokalemia, resolved 5. Bradycardia, changed made as above CONDITION: Stable. PLAN: 1. Explained to the patient all the findings and will need to be monitored. May end up doing an echocardiogram on this patient to evaluate his LV function. Will find out whiter he had an echocardiogram done in the near past or night that is in last 6-12 months. TIME SPENT: More than 30 minutes. Plan and coordination of the patient's care discussed in the presence of nurse. REENA
[2016-05-25] MEDS: SODIUM CHLORIDE 1,000 ML IV SCH (12:58)
--- NOTE | 2016-05-25 13:07 | PN ---
DATE OF SERVICE: 05/22/16 SUBJECTIVE: The patient is a 55 year old white male was hospitalized with acute bronchitis/ pneumonitis and also had severe hypertension and dehydration. The patient's condition has improved remarkably. His hydration status improved, his appetite has improved, Bronchitis symptoms are under control with antibiotics. Blood pressure has come up now.Yesterday it was kind of on the lower side. The patient also has mild hypokalemia. The kidney functions were abnormal yesterday creatinine 2 and BUN 19 this morning it is 1.4 creatinine. REVIEW OF SYSTEMS: CONSTITUTIONAL: No night sweats.Mild weakness. No fever or chills. HEENT: Eyes: No visual changes. No eye pain. No eye discharge. ENT: No runny nose. No epistaxis. No sinus pain. No sore throat. No odynophagia. No congestion. RESPIRATORY: No cough, no congestion. No hemoptysis. CARDIOVASCULAR: No angina symptoms. No CHF symptoms. No atypical chest pain for CAD. No palpitations. No shortness of breath. GASTROINTESTINAL: No abdominal pain. No nausea or vomiting. No diarrhea or constipation. No hematemesis. No hematochezia. GENITOURINARY: No urgency. No frequency. No dysuria. No hematuria. No obstructive symptoms. No discharge. No pain. No significant abnormal bleeding. MUSCULOSKELETAL: No musculoskeletal pain; no joint swelling. NEUROLOGICAL: No headache. No neck pain. No syncope. No seizures. No dizziness. PSYCHIATRIC: Not anxious. No depression. No suicidal thoughts. No homicidal thoughts. SKIN: No rash. No lesions. No wounds. ENDOCRINE: No unexplained weight loss. No weight gain. HEMATOLOGIC/LYMPHATIC: No anemia. No purpura. No petechiae. No prolonged or excessive bleeding. No palpable lymph nodes. PHYSICAL EXAMINATION: GENERAL: The patient is oriented to time, place and person. VITAL SIGNS: Temperature 97.6, pulse 58, respiratory rate 15, blood pressure 130/78 and pulse ox 99%. HEENT: Head normocephalic, atraumatic. Eyes: Extraocular muscles are intact. Pupils are equal, round and reactive to light and accommodation. Ears: No lesions. Nose appeared normal. Throat: No exudate or erythema. NECK: Supple. No JVD, no carotid bruit. No lymphadenopathy or thyromegaly. LUNGS: Decreased breath sounds but Clear to auscultation. Percussion note normal. Chest symmetrical. HEART: S1, S2, no S3. No murmurs. No cyanosis or clubbing. No ascites. Pulses: Dorsalis pedis and posterior tibial pulses +1 to +2 both sides. ABDOMEN: Soft. Nontender. Bowel sounds active. No CVA tenderness. No mass felt. EXTREMITIES: No edema. Full range of motion of all extremities, equal. NEUROLOGIC: No focal deficit. Cranial nerves II through XII are grossly intact. No headache, no double vision or headache. SKIN: Not dry. Intact. Turgor - normal. LYMPHATIC: No palpable lymph nodes/no lymphedema. MUSCULOSKELETAL: Normal joints with no swelling. Muscle tone is normal. LABS: Hgb 13.4, hct 42, WBC 14,000 normal differential, creatinine 1.4, BUN 20, potassium 3.3 which has gone up by 0.1 and sugar 157. CK-MB negative. BNP 129 which is borderline high and TSH normal. ASSESSMENT: 1. Acute bronchitis/ pneumonitis seems to have resolved 2. Dehydration, seems to have resolved 3. Hypertension, under control 4. Chronic kidney disease 5. Hypokalemia 6. Obesity 7. Smoking with chronic lung disease PLAN: 1. Counseling for smoking done 2. Weight loss diet discussed, the patient's BMI is 34. Needs to lose at least 30 to 40 pounds. Discussed the weight loss diet 3. The patient is off Norvasc 4. The patient's Lopressor 100mg twice a day 5. Catapres has been reduced to 0.2mg twice a day it is been noted that patient the same medications that he is on at home has brought his blood pressure below hypotension level so very likely the patient is non-compliant and not taking his medications regularly. 6. Another problem that was noted was hypokalemia for which k-tab four times a day would be given. 7. Another problems is urinary retention, bladder scan showed 1,000cc, will start the patient on Flomax and put of [place] Catheter and explained about BPH. CONDITION: Stable. TIME SPENT: More than 30 minutes. Plan and coordination of the patient's care discussed in the presence of nurse. REENA
[2016-05-25] MEDS: PAMELOR PO SCH (20:28)
[2016-05-25] MEDS: AMBIEN PO SCH (20:28)
[2016-05-25] MEDS: DESYREL PO SCH (20:31)
[2016-05-26] MEDS: SOLU-CORTEF 250 MG IVP SCH ×2 (04:18→12:34)
[2016-05-26] MEDS: SODIUM CHLORIDE 1,000 ML IV SCH ×2 (04:19→14:48)
[2016-05-26 05:00] LABS: BASOPHILS % (AUTO) 0.1 % (0.0-3.0); HEMATOCRIT 46.3 % (42.0-52.0); HEMOGLOBIN 14.5 g/dl (14.0-18.0); IMMATURE GRANULOCYTE % (AUTO) 0.6 % (0.0-5.0); LYMPHOCYTES # (AUTO) 1.9 K/uL (0.60-3.4); LYMPHOCYTES % (AUTO) 17.1 (10.0-50.0); MEAN CORPUSCULAR HEMOGLOBIN 24.8 pg (27.0-31.0); MEAN CORPUSCULAR HGB CONC 31.3 (31.8-35.4); MEAN CORPUSCULAR VOLUME 79.1 fl (80.0-94.0); MONOCYTES # (AUTO) 0.5 K/uL (0.4-2.0); MONOCYTES % (AUTO) 4.9 (0-10); NEUTROPHILS # (AUTO) 8.4 K/ul (2.0-6.9); NEUTROPHILS % (AUTO) 77.3; PLATELET COUNT 201 10^3/uL (140-440); RED BLOOD COUNT 5.85 10^6/ul (4.70-6.10); WHITE BLOOD COUNT 10.82 K/ul (4.2-10.2)
[2016-05-26] MEDS: XOPENEX 1.25 MG NEB SCH ×2 (05:20→11:18)
[2016-05-26 05:22] LABS: ALBUMIN 2.8 g/dL (3.4-5.0); ALBUMIN/GLOBULIN RATIO 0.85; ANION GAP 9.6; BILIRUBIN,TOTAL 0.3 mg/dL (0.00-1.20); BUN/CREATININE RATIO 18.09; CALCIUM 8.7 mg/dL (8.2-10.2); CREATININE 1.05 mg/dL (0.60-1.10); POTASSIUM 4.6 mmol/L (3.5-5.1); TOTAL PROTEIN 6.1 g/dL (6.4-8.2)
[2016-05-26] MEDS: OXYCODONE PO SCH ×2 (05:46→14:07)
[2016-05-26] MEDS: PROTONIX PO SCH (05:46)
[2016-05-26] MEDS ORDERED: NORVASC PO SCH (09:00)
[2016-05-26] MEDS: MIRALAX PO SCH (09:41)
[2016-05-26] MEDS: TUSSIONEX PO SCH (09:42)
[2016-05-26] MEDS: CATAPRES PO SCH (09:43)
[2016-05-26] MEDS: ASPIRIN EC PO SCH (09:43)
[2016-05-26] MEDS: K-DUR PO SCH ×2 (09:44→13:04)
[2016-05-26] MEDS: FLOMAX PO SCH (09:44)
[2016-05-26] MEDS: LEXAPRO PO SCH (09:44)
--- NOTE | 2016-05-26 09:44 | PN ---
DATE OF SERVICE: 05/25/16 SUBJECTIVE: 55-year-old white male hospitalized with numerous problems like bronchitis/ pneumonitis, severe hypertension, dehydration. The patient's majority of conditions are stable and improving. He has hyponatremia which was a new problem - has practically resolved with sodium of 134, potassium 4.6. Creatinine and BUN are stable. REVIEW OF SYSTEMS: CONSTITUTIONAL: The patient is feeling a lot better. No night sweats. No fatigue , malaise, lethargy. No fever or chills. HEENT: Eyes: No visual changes. No eye pain. No eye discharge. ENT: No runny nose. No epistaxis. No sinus pain. No sore throat. No odynophagia. No congestion. RESPIRATORY: Coughing much less. No hemoptysis. CARDIOVASCULAR: No angina symptoms. No CHF symptoms. No atypical chest pain for CAD. No palpitations. No shortness of breath. No PND, no orthopnea. GASTROINTESTINAL: Appetite has improved. No abdominal pain. No nausea or vomiting. No diarrhea or constipation. No hematemesis. No hematochezia. GENITOURINARY: No urgency. No frequency. No dysuria. No hematuria. No obstructive symptoms. No discharge. No pain. No significant abnormal bleeding. MUSCULOSKELETAL: No musculoskeletal pain; no joint swelling. NEUROLOGICAL: No headache. No neck pain. No syncope. No seizures. No dizziness. PSYCHIATRIC: Not anxious. No depression. No suicidal thoughts. No homicidal thoughts. SKIN: No rash. No lesions. No wounds. ENDOCRINE: No unexplained weight loss. No weight gain. HEMATOLOGIC/LYMPHATIC: No anemia. No purpura. No petechiae. No prolonged or excessive bleeding. No palpable lymph nodes. PHYSICAL EXAMINATION: GENERAL: The patient is oriented to time, place and person. VITAL SIGNS: Temperature 97.3, pulse 50/min, respiratory rate 16, BP 142/80, pulse ox 99%. HEENT: Head normocephalic, atraumatic. Eyes: Extraocular muscles are intact. Pupils are equal, round and reactive to light and accommodation. Ears: No lesions. Nose appeared normal. Throat: No exudate or erythema. NECK: Supple. No JVD, no carotid bruit. No lymphadenopathy or thyromegaly. LUNGS: Decreased breath sounds. Clear to auscultation. Percussion note normal. Chest symmetrical. HEART: S1, S2, no S3. No murmurs. No cyanosis or clubbing. No ascites. Pulses: Dorsalis pedis and posterior tibial pulses +1 to +2 both sides. ABDOMEN: Soft. Nontender. Bowel sounds active. No CVA tenderness. No mass felt. EXTREMITIES: No edema. Full range of motion of all extremities, equal. NEUROLOGIC: No focal deficit. Cranial nerves II through XII are grossly intact. No headache, no double vision or headache. SKIN: Not dry. Intact. Turgor - normal. LYMPHATIC: No palpable lymph nodes/no lymphedema. MUSCULOSKELETAL: Normal joints with no swelling. Muscle tone is normal. LAB DATA: Hemoglobin 13, hematocrit 42, WBC 10,000, normal differential. Creatinine 1, BUN 21, potassium 4.6, BNP 129, TSH normal. The patient had an echocardiogram done which showed borderline LV cavity enlargement with normal LV contractility with LVH with enlarged LA cavity. All the reports discussed with the patient. ASSESSMENT: 1. ACUTE PNEUMONITIS/BRONCHITIS RESOLVED 2. COPD WITH SMOKING. COUNSELING FOR SMOKING DONE 3. STEROIDS HAVE BEEN USED OFF AND ON WITH HIS CHRONIC LUNG DISEASE 4. SEVERE HYPERTENSION, UNDER CONTROL 5. OBESITY - ADVISED TO LOSE AT LEAST 30 TO 40 LBS 6. HYPONATREMIA RESOLVED. 7. ADVISED NOT TO DRINK TOO MANY PEPSI'S, SODA POP OR FLUIDS; FLUID INTAKE SHOULD BE MILD TO MODERATE CONDITION: STABLE EDUCATION CARRIED OUT ABOUT: The side effects of steroids including avascular necrosis of femur and cataracts , et cetera discussed. TIME SPENT: More than 30 minutes. Plan and coordination of the patient's care discussed in the presence of nurse. REENA
[2016-05-26] MEDS: LIPITOR PO SCH (09:46)
[2016-05-26] MEDS: LOPRESSOR PO SCH (09:47)
[2016-05-26] MEDS: MS CONTIN PO SCH (09:48)
[2016-05-26] MEDS: XANAX PO SCH (09:48)
[2016-05-26] MEDS: OMNICEF PO SCH (09:48)
[2016-05-26] MEDS: PLAVIX PO SCH (09:48)
[2016-05-26 14:32] VITALS: BP 160/86; TEMP 97
--- NOTE | 2016-05-27 09:56 | ECHO2D ---
Date of Exam: 05/25/16 Ordering Physician: CARLOS DE LA PAZ Reason for Echo: HYPERTENSION, CAD, BRADYCARDIA M-Mode Normal Adult Results LV Dimensions Normal Adult Results AoV Opening excursions >1.6 >1.6 LVEDD-base- 3.5-5.8 5.7 Ao root dimensions 2.0-3.7 3.8 LVESD-base- 3.1-4.6 L. Atrium dimensions 1.9-3.8 5.7 Post. Wall thickness 0.8-1.1 1.4 IV septum (thickness) 0.7-1.2 1.3 Post. Wall excursion 0.72-1.3 NORMAL Septal motion NORMAL Systolic motion R. Ventricular cavity 1.5-2.0 NORMAL LVEF 60% 56% Paradoxical septal wall motion NORMAL 2-D : NORMAL VALVES--NORMAL LEFT VENTRICULAR CONTRACTILITY--ENLARGED LEFT ATRIAL AND LEFT VENTRICULAR CAVITIES, NO EFFUSION, NO THROMBUS M-MODE: MV: NORMAL AV: NORMAL TV: NORMAL PV: CHAMBER SIZE: ENLARGED LEFT ATRIAL CAVITY AND LEFT VENTRICLE CAVITY WALL MOTION: NORMAL PERICARDIUM: NORMAL INTERPRETATION: 1. LEFT VENTRICULAR HYPERTROPHY WITH ENLARGED LEFT ATRIAL CAVITY (5.7 CM) 2. NORMAL LEFT VENTRICULAR CONTRACTILITY 3. BORDERLINE LEFT VENTRICLE CAVITY SIZE MTDD
--- NOTE | 2016-05-29 12:43 | PN ---
DATE OF SERVICE: 05/26/16 SUBJECTIVE: 55-year-old white male hospitalized with multiple medical problems like bronchitis, pneumonitis, severe hypertension, dehydration. All the medical conditions have resolved. In the hospital he developed hyponatremia and hypokalemia, which have resolved now. His sodium is 135, potassium 4.6. The patient also developed urinary retention for which he has been put on Flomax. Eaton catheter was removed. He was able to urinate properly. REVIEW OF SYSTEMS: CONSTITUTIONAL: No night sweats. No fatigue, malaise, lethargy. No fever or chills. HEENT: Eyes: No visual changes. No eye pain. No eye discharge. ENT: No runny nose. No epistaxis. No sinus pain. No sore throat. No odynophagia. No congestion. RESPIRATORY: No cough, no congestion. No hemoptysis. CARDIOVASCULAR: No angina symptoms. No CHF symptoms. No atypical chest pain for CAD. No palpitations. No shortness of breath. GASTROINTESTINAL: No abdominal pain. No nausea or vomiting. No diarrhea or constipation. No hematemesis. No hematochezia. GENITOURINARY: No urgency. No frequency. No dysuria. No hematuria. No obstructive symptoms. No discharge. No pain. No significant abnormal bleeding. MUSCULOSKELETAL: No musculoskeletal pain; no joint swelling. NEUROLOGICAL: No headache. No neck pain. No syncope. No seizures. No dizziness. PSYCHIATRIC: Not anxious. No depression. No suicidal thoughts. No homicidal thoughts. SKIN: No rash. No lesions. No wounds. ENDOCRINE: No unexplained weight loss. No weight gain. HEMATOLOGIC/LYMPHATIC: No anemia. No purpura. No petechiae. No prolonged or excessive bleeding. No palpable lymph nodes. PHYSICAL EXAMINATION: GENERAL: The patient is oriented to time, place and person. VITAL SIGNS: Temperature 96.6, pulse 46, respiratory rate 14, BP 176/88, pulse ox 97%. HEENT: Head normocephalic, atraumatic. Eyes: Extraocular muscles are intact. Pupils are equal, round and reactive to light and accommodation. Ears: No lesions. Nose appeared normal. Throat: No exudate or erythema. NECK: Supple. No JVD, no carotid bruit. No lymphadenopathy or thyromegaly. LUNGS: Decreased breath sounds. Clear to auscultation. Percussion note normal. Chest symmetrical. HEART: S1, S2, no S3. No murmurs. No cyanosis or clubbing. No ascites. Pulses: Dorsalis pedis and posterior tibial pulses +1 to +2 both sides. ABDOMEN: Soft. Nontender. Bowel sounds active. No CVA tenderness. No mass felt. EXTREMITIES: No pedal edema. Full range of motion of all extremities, equal. NEUROLOGIC: No focal deficit. Cranial nerves II through XII are grossly intact. No headache, no double vision or headache. SKIN: Not dry. Intact. Turgor - normal. LYMPHATIC: No palpable lymph nodes/no lymphedema. MUSCULOSKELETAL: Normal joints with no swelling. Muscle tone is normal. LABS: Hemoglobin 14.5, hematocrit 46, WBC 10,800, normal differential. Creatinine 1, BUN 19, potassium 4.6, glucose 105. ASSESSMENT: 1. ACUTE PNEUMONITIS/BRONCHITIS, RESOLVED 2. HYPERTENSION, RESOLVED 3. DEHYDRATION, RESOLVED 4. URINARY RETENTION, RESOLVED 5. HYPOKALEMIA RESOLVED 6. HYPONATREMIA RESOLVED PLAN: 1. Discharge the patient home. 2. Restart Norvasc. 3. Will continue Flomax. 4. Discontinue Eaton catheter. 5. Patient wants Miralax for BM. 6. The patient is strongly advised to lose weight. His BMI is 34. Also advised to cut down on salt. 7. Discharge the patient on Omnicef. CONDITION: Stable. TIME SPENT: More than 30 minutes. Plan and coordination of the patient's care discussed in the presence of nurse. REENA
--- NOTE | 2016-05-29 13:13 | DS ---
DATE OF SERVICE: 05/26/16 FINAL DIAGNOSIS: 1. BRONCHITIS 2. PNEUMONITIS 3. SEVERE HYPERTENSION, IMPROVED 4. DEHYDRATION 5. HYPOKALEMIA, RESOLVED 6. COPD, OXYGEN DEPENDENT 7. CONGESTIVE HEART FAILURE BY HISTORY 8. CHRONIC KIDNEY DISEASE 9. CAD STATUS POST STENT APPLICATION 10. DYSLIPIDEMIA 11. DEPRESSION/ANXIETY 12. B12 DEFICIENCY 13. 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 GERD LAST V/S: Temperature 98.5, pulse 48, respirations 20, BP 167/68, pulse ox 96 DISCHARGE INSTRUCTIONS: Followup appointment: Return to see Dr. Love in 7 to 10 days. Portable oxygen will be provided by [facility]. MEDICATIONS AT DISCHARGE: Atorvastatin (Lipitor) 80 mg p.o. daily Aspirin 81 mg p.o. daily with meal Nitroglycerin 0.3 mg SL p.r.n. Amlodipine (Norvasc) 5 mg p.o. b.i.d. Trazodone (Oleptro) 150 mg p.o. bedtime Clopidogrel 75 mg p.o. daily Alprazolam 0.5 mg p.o. b.i.d. Escitalopram (Lexapro) 20 mg p.o. daily Oxycodone 60 mg p.o. t.i.d. Morphine Sulfate (MS Contin) 60 mg p.o. q.12hr Nortriptyline (Pamelor) 50 mg p.o. bedtime Pantoprazole (Protonix) 20 mg p.o. daily Cyanocobalamin 1000 mt IM monthly Ambien 10 mg p.o. bedtime MEDICATION CHANGES: Resume your home medications as per list provided by the nursing staff Reduce your Furosemide (Lasix) to 20 mg by mouth daily Reduce your Metolazone 2.5 mg by mouth to 3 times per week as needed for edema Reduce your Clonidine (Catapres) to 0.2 mg by mouth twice daily NEW PRESCRIPTIONS: Flomax 0.4 mg one tablet by mouth daily Cefdinir (Omnicef) 300 mg take one tablet by mouth b.i.d. times five days DIET INSTRUCTIONS: No added salt Healthy Heart Stay hydrated, but watch the amount of liquids you drink ACTIVITY: Get plenty of rest at home. Gradually increase your activity level according to your toleration SMOKING: N/A DISEASE SPECIFIC EDUCATION: New prescriptions Follow up Oxygen use Compliance with physician instructions HOSPITAL COURSE: 55-year-old white male hospitalized with pneumonitis, bronchitis, severe hypertension, dehydration. The patient was treated with IV antibiotics and steroids with nebs treatment. The patient's bronchitis symptoms and pneumonitis resolved. The patient became hypotensive by continuing his home medicine. Very likely the patient is not taking his medications as prescribed and he ends up on a lot of medicines as an outpatient. In any case the same medications cause hypertension in him. He was explained about this finding and advised to be very sincere to his medication intake. Also, was advised to cut down on salt intake. DASH diet discussed. Also advised to lose weight. His BMI is 34; ideal 23 plus minus 2. Weight loss diet discussed with him. He is a heavy smoker. Counseling for smoking done. The patient developed hyponatremia and hypokalemia for which he was treated with Normal Saline and fluid restriction. Also he developed urinary retention. The patient was put on Flomax. Eaton catheter was removed. He was able to pass urine before discharge. The patient is going to be discharged on the above-mentioned medication. Clonidine has been reduced to 0.2 twice a day and Lasix will be restarted along with Zaroxolyn three times a week. Strongly advised to lose weight, cut down on salt intake. Goal blood pressure would be 135/85 or less. CONDITION: Stable on discharge TIME SPENT: More than 60 minutes. MTDD
== END 2016-05-26 15:25 | disposition home or self-care (01) | DRG 202 ==
LOC: MEDSURG B 10:08
PROVIDERS: ADMIT Internal Medicine; ATTEND Internal Medicine
DX: J40 Bronchitis, not specified as acute or chronic (principal); J18.9 Pneumonia, unspecified organism; E87.1 Hypo-osmolality and hyponatremia; I51.7 Cardiomegaly; I10 Essential (primary) hypertension; E86.0 Dehydration; E87.6 Hypokalemia; J44.9 Chronic obstructive pulmonary disease, unspecified; I12.9 Hypertensive chronic kidney disease with stage 1 through stage 4 chronic kidney disease, or unspecified chronic kidney disease; I25.2 Old myocardial infarction; N18.9 Chronic kidney disease, unspecified; I95.2 Hypotension due to drugs; R00.1 Bradycardia, unspecified; I25.10 Atherosclerotic heart disease of native coronary artery without angina pectoris; F41.8 Other specified anxiety disorders; D51.9 Vitamin B12 deficiency anemia, unspecified; E66.09 Other obesity due to excess calories; M47.9 Spondylosis, unspecified; K21.9 Gastro-esophageal reflux disease without esophagitis; R32 Unspecified urinary incontinence; Z86.79 Personal history of other diseases of the circulatory system; F17.200 Nicotine dependence, unspecified, uncomplicated; Z68.34 Body mass index [BMI] 34.0-34.9, adult; Z91.19 Patient's noncompliance with other medical treatment and regimen; Z95.5 Presence of coronary angioplasty implant and graft; Z79.01 Long term (current) use of anticoagulants; Z79.899 Other long term (current) drug therapy
CPT/HCPCS: 36415; 80053; 81001; 82550; 82553; 82803; 83874; 83880; 84443; 84484; 85025; 87040; 87070; 87077; 87186; 93005; 93010; 94640; 94761

== ENCOUNTER 2017-02-12 12:08 | Inpatient (IN) ==
[2017-02-12 12:49] VITALS: BMI 35.9
[2017-02-12] MEDS ORDERED: VASOTEC IV IVP PRN (13:02)
[2017-02-12] MEDS ORDERED: MORPHINE 4 MG/ML VIAL IVP PRN (13:02)
[2017-02-12] MEDS ORDERED: ATROPINE SULFATE PFS IVP PRN (13:02)
[2017-02-12] MEDS ORDERED: VISTARIL INJ IM PRN (13:02)
[2017-02-12] MEDS ORDERED: VASOTEC IV IVP STA (13:10)
[2017-02-12] MEDS ORDERED: LASIX IVP STA (13:15)
[2017-02-12] MEDS ORDERED: NON-FORMULARY MEDICATION (Nitroglycerin [Nitrostat] 0.3 MG) SL PRN (13:44)
[2017-02-12] MEDS ORDERED: ZAROXOLYN PO PRN (13:44)
[2017-02-12] MEDS ORDERED: NITROSTAT SL PRN (14:12)
[2017-02-12] MEDS ORDERED: OXYCODONE HCL 60 MG PO SCH (15:00)
--- NOTE | 2017-02-12 15:37 | DI ---
EXAM: Single frontal view of the chest HISTORY: Chest pain. COMPARISON: Chest x-ray 05/20/2016 FINDINGS: Cardiomediastinal silhouette is unremarkable. There is no pneumothorax or pleural effusion . There is no consolidation, nodule or mass. There is calcified granuloma in the left lower lobe. T he osseous structures are unremarkable. IMPRESSION: No acute cardiopulmonary process.
--- NOTE | 2017-02-12 15:51 | CT ---
EXAM: CT head without contrast. HISTORY: Dizziness. COMPARISON: 03/08/2008. TECHNIQUE: Multiple axial images of the brain were obtained from the skull base through the vertex w ithout intravenous contrast. Multiplanar reformats were provided. FINDINGS: There is no intracranial hemorrhage or extraaxial collection. The yepez-white differentiat ion is maintained without evidence for acute large vascular territory infarction. There are areas of periventricular and subcortical white matter low attenuation. The cortical sulci and cerebral ventr icles are symmetrically enlarged. The basal cisterns are well visualized. There is no hydrocephalus , mass effect, or midline shift. The paranasal sinuses and mastoid air cells are clear. The calvari um is intact. IMPRESSION: 1. No acute intracranial abnormality. 2. Chronic small vessel ischemic changes and atrophy.
--- NOTE | 2017-02-12 16:02 | US ---
EXAM: Ultrasound bilateral carotid duplex. HISTORY: Dizziness. COMPARISON: 08/30/2009. TECHNIQUE: Multiple yepez scale and color Doppler images were obtained. FINDINGS: Please note that estimates of internal carotid artery stenoses are based upon NASCET crite jinny. Right carotid: Mild plaquing noted without 50% or greater stenosis. Peak systolic velocity measurem ent in the right internal carotid artery is 0.5 meters per second. Right internal to common carotid artery peak systolic velocity ratio measures 0.8. End diastolic velocity measurement in the right in ternal carotid artery is 0.1 meters per second. Flow in the right vertebral artery is antegrade. Left carotid: Mild plaquing noted without 50% or greater stenosis. Peak systolic velocity measureme nt in the left internal carotid artery is 0.7 meters per second. Left internal to common carotid art josué peak systolic velocity ratio measures 1.1. End diastolic velocity measurement in the left international tax manager al carotid artery measures 0.3 meters per second. Flow in the left vertebral artery is antegrade. IMPRESSION: 1. No evidence for 50% or greater stenosis in the right or left internal carotid artery. 2. Antegrade flow in both vertebral arteries.
[2017-02-12] MEDS: OXYCONTIN PO SCH (16:05)
[2017-02-12] MEDS: LOPRESSOR PO SCH (16:46)
[2017-02-12] MEDS ORDERED: MS CONTIN PO SCH (21:00)
[2017-02-12] MEDS ORDERED: PAMELOR PO SCH (21:00)
[2017-02-12] MEDS ORDERED: NON-FORMULARY MEDICATION (Metoprolol Tartrate [Lopressor] 100 MG) PO SCH (21:00)
[2017-02-12] MEDS ORDERED: NON-FORMULARY MEDICATION (Zolpidem Tartrate [Ambien] 10 MG) PO SCH (21:00)
[2017-02-12] MEDS ORDERED: TRAZODONE HCL 150 MG PO SCH (21:00)
[2017-02-12] MEDS ORDERED: NON-FORMULARY MEDICATION (Clonidine Hcl [Clonidine Hcl] 0.3 MG) PO SCH (21:00)
[2017-02-12] MEDS ORDERED: MORPHINE SULFATE 60 MG PO SCH (21:00)
[2017-02-12] MEDS: CATAPRES PO SCH (21:50)
[2017-02-12] MEDS: DESYREL PO SCH (21:50)
[2017-02-12] MEDS: XANAX PO SCH (21:50)
[2017-02-12] MEDS: AMBIEN PO SCH (21:50)
[2017-02-12] MEDS ORDERED: MS CONTIN ONE (21:56)
[2017-02-12] MEDS: PAMELOR PO SCH (21:58)
[2017-02-13] MEDS: OXYCONTIN PO SCH ×3 (02:10→18:19)
[2017-02-13] MEDS: PRILOSEC PO SCH (06:08)
[2017-02-13] MEDS ORDERED: LASIX TAB PO SCH (06:30)
[2017-02-13] MEDS ORDERED: PANTOPRAZOLE SODIUM 20 MG PO SCH (06:30)
[2017-02-13] MEDS ORDERED: MS CONTIN PO SCH (09:00)
[2017-02-13] MEDS ORDERED: NON-FORMULARY MEDICATION (Atorvastatin Calcium [Lipitor] 80 MG) PO SCH (09:00)
[2017-02-13] MEDS: XANAX PO SCH ×2 (09:27→21:37)
[2017-02-13] MEDS: LOPRESSOR PO SCH ×2 (09:30→19:43)
[2017-02-13] MEDS: LEXAPRO PO SCH (09:30)
[2017-02-13] MEDS: LIPITOR PO SCH (09:30)
[2017-02-13] MEDS: ASPIRIN CHEWABLE PO SCH (09:32)
[2017-02-13] MEDS: CATAPRES PO SCH ×2 (09:33→21:37)
[2017-02-13] MEDS: K-DUR PO SCH (09:33)
[2017-02-13] MEDS: PLAVIX PO SCH (09:34)
[2017-02-13] MEDS: NORVASC PO SCH (09:34)
[2017-02-13] MEDS: TYLENOL PO PRN ×2 (10:36→21:44)
[2017-02-13] MEDS ORDERED: NITROSTAT SL PRN (11:00)
[2017-02-13] MEDS ORDERED: CHLORASEPTIC SPRAY MM PRN (13:26)
[2017-02-13] MEDS ORDERED: LIDOCAINE VISCOUS 2% 15 ML UD MUCOUSMEMB PRN (14:54)
[2017-02-13] MEDS ORDERED: LIDOCAINE VISCOUS 2% 15 ML UD MUCOUSMEMB SCH (17:00)
[2017-02-13] MEDS: MS CONTIN PO SCH (21:36)
[2017-02-13] MEDS: PAMELOR PO SCH (21:36)
[2017-02-13] MEDS: AMBIEN PO SCH (21:37)
[2017-02-13] MEDS: DESYREL PO SCH (21:37)
[2017-02-14] MEDS: OXYCONTIN PO SCH ×4 (03:15→16:06)
[2017-02-14] MEDS: PRILOSEC PO SCH (06:28)
[2017-02-14] MEDS: LASIX TAB PO SCH (06:29)
[2017-02-14] MEDS: ASPIRIN CHEWABLE PO SCH (10:09)
[2017-02-14] MEDS: PLAVIX PO SCH (10:09)
[2017-02-14] MEDS: K-DUR PO SCH (10:09)
[2017-02-14] MEDS: LIPITOR PO SCH (10:09)
[2017-02-14] MEDS: MS CONTIN PO SCH ×2 (10:15→20:44)
[2017-02-14] MEDS: NORVASC PO SCH (10:15)
[2017-02-14] MEDS: CATAPRES PO SCH ×2 (10:16→20:45)
[2017-02-14] MEDS: XANAX PO SCH ×2 (10:24→20:45)
[2017-02-14] MEDS: LEXAPRO PO SCH (10:24)
[2017-02-14] MEDS: LOPRESSOR PO SCH ×2 (10:25→18:35)
[2017-02-14] MEDS: TORADOL IVP SCH ×2 (13:43→20:44)
[2017-02-14] MEDS: AMBIEN PO SCH (20:44)
[2017-02-14] MEDS: DESYREL PO SCH (20:45)
[2017-02-14] MEDS: PAMELOR PO SCH (20:45)
[2017-02-15] MEDS ORDERED: OXYCONTIN PO ONE (03:00)
[2017-02-15] MEDS: TORADOL IVP SCH ×3 (06:00→20:23)
[2017-02-15] MEDS: PRILOSEC PO SCH (06:00)
[2017-02-15] MEDS: LASIX TAB PO SCH (06:00)
[2017-02-15] MEDS: ASPIRIN CHEWABLE PO SCH (09:07)
[2017-02-15] MEDS: CATAPRES PO SCH ×2 (09:07→20:24)
[2017-02-15] MEDS: MS CONTIN PO SCH ×2 (09:07→20:23)
[2017-02-15] MEDS: LIPITOR PO SCH (09:07)
[2017-02-15] MEDS: LEXAPRO PO SCH (09:08)
[2017-02-15] MEDS: NORVASC PO SCH (09:08)
[2017-02-15] MEDS: LOPRESSOR PO SCH ×2 (09:08→16:39)
[2017-02-15] MEDS: XANAX PO SCH ×2 (09:08→20:24)
[2017-02-15] MEDS: K-DUR PO SCH ×3 (09:08→16:39)
[2017-02-15] MEDS: PLAVIX PO SCH (09:08)
[2017-02-15] MEDS ORDERED: OXYCONTIN PO SCH (15:00)
[2017-02-15] MEDS ORDERED: OXYCODONE HCL 60 MG PO PRN (15:42)
[2017-02-15] MEDS ORDERED: OXYCODONE PO PRN (15:44)
[2017-02-15] MEDS: PAMELOR PO SCH (20:23)
[2017-02-15] MEDS: DESYREL PO SCH (20:24)
[2017-02-15] MEDS: AMBIEN PO SCH (20:30)
[2017-02-16 05:21] VITALS: BP 140/87; TEMP 97.5
[2017-02-16] MEDS: LASIX TAB PO SCH (05:56)
[2017-02-16] MEDS: TORADOL IVP SCH (05:56)
[2017-02-16] MEDS: PRILOSEC PO SCH (05:56)
[2017-02-16] MEDS: CATAPRES PO SCH (09:13)
[2017-02-16] MEDS: MS CONTIN PO SCH (09:13)
[2017-02-16] MEDS: LEXAPRO PO SCH (09:13)
[2017-02-16] MEDS: LOPRESSOR PO SCH (09:13)
[2017-02-16] MEDS: K-DUR PO SCH (09:13)
[2017-02-16] MEDS: PLAVIX PO SCH (09:14)
[2017-02-16] MEDS: NORVASC PO SCH (09:14)
[2017-02-16] MEDS: XANAX PO SCH (09:14)
[2017-02-16] MEDS: LIPITOR PO SCH (09:14)
[2017-02-16] MEDS: ASPIRIN CHEWABLE PO SCH (09:15)
--- NOTE | 2017-02-16 09:42 | PCM.PROG ---
Attending Provider: ATTENDING PROVIDER: Dr. CARLOS DE LA PAZ This patient is seen with Charo Collins, Nurse Practitioner. DATE OF SERVICE: 02/16/17 SUBJECTIVE: This 56 year old WHITE/ M was hospitalized 02/12/17. The patient is lying in bed, alert, in no distress. Shortness of breath resolved. Leg edema resolved, not experiencing any chest pain. REVIEW OF SYSTEMS: CONSTITUTIONAL: No night sweats. No fatigue, malaise, lethargy. No fever or chills. HEENT: Eyes: No visual changes. No eye pain. No eye discharge. ENT: No runny nose. No epistaxis. No sinus pain. No odynophagia. No congestion. RESPIRATORY: No cough, no congestion. No hemoptysis. No shortness of breath. CARDIOVASCULAR: No angina symptoms. No CHF symptoms. No atypical chest pain for CAD. No palpitations. No orthopnea.. GASTROINTESTINAL: No abdominal pain. No nausea or vomiting. No diarrhea or constipation. No hematemesis. No hematochezia. GENITOURINARY: No urgency. No frequency. No dysuria. No hematuria. No obstructive symptoms. No discharge. No pain. No significant abnormal bleeding. MUSCULOSKELETAL: No musculoskeletal pain; no joint swelling. NEUROLOGICAL: Awake, alert, oriented to time, place and person. No headache. No neck pain. No syncope. No seizures. No dizziness. PSYCHIATRIC: Not anxious. No depression. No suicidal thoughts. No homicidal thoughts. SKIN: No rash. No lesions. No wounds. ENDOCRINE: No unexplained weight loss. No weight gain. HEMATOLOGIC/LYMPHATIC: No anemia. No purpura. No petechiae. No prolonged or excessive bleeding. No palpable lymph nodes. PHYSICAL EXAMINATION: GENERAL: The patient is awake, alert and oriented, lying in bed in no distress. VITAL SIGNS: Temperature 97.5 F, Pulse 48, Respiratory Rate 16, BP 140/87, Pulse Ox 96% HEENT: Head normocephalic, atraumatic. Eyes: Extraocular muscles are intact. Pupils are equal, round and reactive to light and accommodation. Ears: No lesions. Nose appeared normal. Throat: No exudate or erythema. NECK: Supple. No JVD, no carotid bruit. No lymphadenopathy or thyromegaly. LUNGS: Diminished breath sounds bilaterally. Clear to auscultation. Percussion note normal. Chest symmetrical. HEART: S1, S2, no S3. No murmurs. No cyanosis or clubbing. No ascites. Pulses: Dorsalis pedis and posterior tibial pulses +1 to +2 both sides. ABDOMEN: Soft. Non-tender. Bowel sounds active. No CVA tenderness. No mass felt. EXTREMITIES: No edema. Full range of motion of all extremities, equal. NEUROLOGIC: No focal deficit. Cranial nerves II through XII are grossly intact. No headache, no double vision or headache. SKIN: Not dry. Intact. Turgor-normal. LYMPHATIC: No palpable lymph nodes/no lymphedema. MUSCULOSKELETAL: Normal joints with no swelling. Muscle tone is normal. LAB REVIEW: 02/16/17 04:05 02/16/17 04:05 02/16/17 04:05: Sodium 129 L, Potassium 3.7, Chloride 94 L, Carbon Dioxide 29, Anion Gap 9.7, BUN 14, Creatinine 1.37 H, Estimated GFR (MDRD) 53.00, BUN/ Creatinine Ratio 10.21, Glucose 93, Calcium 8.6, Total Bilirubin 0.7, AST 13 L, ALT 6 L, Alkaline Phosphatase 101, Total Protein 5.6 L, Albumin 2.7 L, Globulin 2.9, Albumin/Globulin Ratio 0.93 02/16/17 04:05: WBC 8.67, RBC 4.94, Hgb 13.1 L, Hct 40.3 L, MCV 81.6, MCH 26.5 L , MCHC 32.5, RDW Coeff of Lety 14.7, Plt Count 146, Immature Gran % (Auto) 0.3, Neut % (Auto) 56.3, Lymph % (Auto) 30.8, Granite % (Auto) 7.4, Eos % (Auto) 4.6, Baso % (Auto) 0.6, Immature Gran # (Auto) 0.0, Neut # 4.9, Lymph # 2.7, Granite # 0.6, Eos # 0.4, Baso # 0.1 ASSESSMENT: 1. LEG EDEMA RESOLVED 2. HYPERTENSION CONTROLLED 3. CHRONIC BACK PAIN 4. SMOKER 5. CORONARY ARTERY DISEASE WITH STENT 6. SHORTNESS OF BREATH, RESOLVED PLAN: 1. Advised to quit smoking. 2. Anticipate discharge home Plan and coordination of the patient's care discussed in the presence of Screed Person and nurse. EDUCATION: Counseling for smoking done. CONDITION: Stable SCRIBED BY: DIANA DIXON Press Operator Heavy Duty scribed while in presence of service performed by Dr. De La Paz/Charo Collins APRN on 02/16/17 ([id number])
--- NOTE | 2017-02-16 09:46 | PCM.PROG ---
Attending Provider: ATTENDING PROVIDER: Dr. CARLOS DE LA PAZ This patient is seen with Charo Collins, Nurse Practitioner. DATE OF SERVICE: 02/15/17 SUBJECTIVE: This 56 year old WHITE/ M was hospitalized 02/12/17. The patient is sitting up in bed, alert. He states he feels better. Leg edema significantly improved along with shortness of breath. Potassium is lower today. REVIEW OF SYSTEMS: CONSTITUTIONAL: No night sweats. No fatigue, malaise, lethargy. No fever or chills. HEENT: Eyes: No visual changes. No eye pain. No eye discharge. ENT: No runny nose. No epistaxis. No sinus pain. No odynophagia. No congestion. RESPIRATORY: No cough, no congestion. No hemoptysis. No shortness of breath. CARDIOVASCULAR: No angina symptoms. No CHF symptoms. No atypical chest pain for CAD. No palpitations. No orthopnea.. GASTROINTESTINAL: No abdominal pain. No nausea or vomiting. No diarrhea or constipation. No hematemesis. No hematochezia. GENITOURINARY: No urgency. No frequency. No dysuria. No hematuria. No obstructive symptoms. No discharge. No pain. No significant abnormal bleeding. MUSCULOSKELETAL: Chronic back pain. NEUROLOGICAL: Awake, alert, oriented to time, place and person. Positive for headache. No neck pain. No syncope. No seizures. No dizziness. PSYCHIATRIC: Not anxious. No depression. No suicidal thoughts. No homicidal thoughts. SKIN: No rash. No lesions. No wounds. ENDOCRINE: No unexplained weight loss. No weight gain. HEMATOLOGIC/LYMPHATIC: No anemia. No purpura. No petechiae. No prolonged or excessive bleeding. No palpable lymph nodes. PHYSICAL EXAMINATION: GENERAL: The patient is awake, alert and oriented, lying in bed in no distress. VITAL SIGNS: Temperature 97.8 F, Pulse 56, Respiratory Rate 16, BP 159/93, Pulse Ox 94% HEENT: Head normocephalic, atraumatic. Eyes: Extraocular muscles are intact. Pupils are equal, round and reactive to light and accommodation. Ears: No lesions. Nose appeared normal. Throat: No exudate or erythema. NECK: Supple. No JVD, no carotid bruit. No lymphadenopathy or thyromegaly. LUNGS: Diminished breath sounds bilaterally. Clear to auscultation. Percussion note normal. Chest symmetrical. HEART: S1, S2, no S3. No murmurs. No cyanosis or clubbing. No ascites. Pulses: Dorsalis pedis and posterior tibial pulses +1 to +2 both sides. ABDOMEN: Soft. Non-tender. Bowel sounds active. No CVA tenderness. No mass felt. EXTREMITIES: No edema. Full range of motion of all extremities, equal. NEUROLOGIC: No focal deficit. Cranial nerves II through XII are grossly intact. No headache, no double vision or headache. SKIN: Not dry. Intact. Turgor-normal. LYMPHATIC: No palpable lymph nodes/no lymphedema. MUSCULOSKELETAL: Normal joints with no swelling. Muscle tone is normal. LAB REVIEW: 02/15/17 04:37 02/15/17 04:37 02/15/17 04:37: Sodium 136, Potassium 3.3 L, Chloride 98, Carbon Dioxide 31, Anion Gap 10.3, BUN 13, Creatinine 1.26 H, Estimated GFR (MDRD) 59.00, BUN/ Creatinine Ratio 10.31, Glucose 88, Calcium 8.5, Total Bilirubin 0.64, AST 12 L , ALT < 6 L, Alkaline Phosphatase 102, Total Protein 6.0 L, Albumin 2.8 L, Globulin 3.2, Albumin/Globulin Ratio 0.88 02/15/17 04:37: WBC 7.41, RBC 5.09, Hgb 13.6 L, Hct 42.1, MCV 82.7, MCH 26.7 L, MCHC 32.3, RDW Coeff of Lety 15.1 H, Plt Count 156, Immature Gran % (Auto) 0.3, Neut % (Auto) 52.8, Lymph % (Auto) 33.2, [place] % (Auto) 8.2, Eos % (Auto) 4.6, Baso % (Auto) 0.9, Immature Gran # (Auto) 0.0, Neut # 3.9, Lymph # 2.5, [facility] # 0.6, Eos # 0.3, Baso # 0.1 ASSESSMENT: 1. LEG EDEMA RESOLVED 2. HYPERTENSION CONTROLLED 3. CHRONIC BACK PAIN 4. SMOKER 5. CORONARY ARTERY DISEASE WITH STENT 6. SHORTNESS OF BREATH, RESOLVED PLAN: 1. K-Dur 20 mEq twice a day Plan and coordination of the patient's care discussed in the presence of Contact Lens Curve Grinder and nurse. CONDITION: Stable SCRIBED BY: DIANA DIXON, Commissary Officer scribed while in presence of service performed by Dr. De La Paz/Charo Collins APRN on 02/15/17 ([id number])
--- NOTE | 2017-02-16 10:16 | CM.DICTOOL ---
ADMISSION: 02/12/17 12:08 DISCHARGE: 02/16/17 DATE OF SERVICE: 02/16/17 FINAL DIAGNOSIS CHEST PAIN LEG EDEMA SHORTNESS OF BREATH SEVERE HYPERTENSION DEHYDRATION COPD CONGESTIVE HEART FAILURE BY HISTORY CHRONIC KIDNEY DISEASE CAD S/P STENT APPLICATION DYSLIPIDEMIA DEPRESSION/ANXIETY B-12 DEFICIENCY SLEEP APNEA, NONCOMPLIANT WITH C-PAP DJD OF THE SPINE GERD CURRENT EVERYDAY SMOKER LAST VITALS Temp Pulse Resp BP Pulse Ox 97.5 F L 48 L 16 140/87 96 02/16/17 05:20 02/16/17 05:20 02/16/17 05:20 02/16/17 05:20 02/16/17 05:20 ACTIVE HOME MEDICATIONS Alprazolam (Xanax) 0.5 mg PO BID [facility] Last Admin: 02/16/17 09:14 Dose: 0.5 mg Amlodipine Besylate (Norvasc) 5 mg PO BID [facility] Last Admin: 02/16/17 09:14 Dose: 5 mg Aspirin (Aspirin Chewable) 81 mg PO DAILYWM [facility] Last Admin: 02/16/17 09:15 Dose: 81 mg Atorvastatin Calcium (Lipitor) 80 mg PO DAILY [facility] Last Admin: 02/16/17 09:14 Dose: 80 mg Clonidine (Catapres) 0.3 mg PO BID [facility] Last Admin: 02/16/17 09:13 Dose: 0.3 mg Clopidogrel Bisulfate (Plavix) 75 mg PO DAILY [facility] Last Admin: 02/16/17 09:14 Dose: 75 mg Cyanocobalamin (Vitamin B-12) 1,000 mcg IM MONTHLY [facility] Escitalopram Oxalate (Lexapro) 20 mg PO DAILY [facility] Last Admin: 02/16/17 09:13 Dose: 20 mg Furosemide (Lasix Tab) 40 mg PO QDAC [facility] Last Admin: 02/16/17 05:56 Dose: 40 mg Metolazone (Zaroxolyn) 2.5 mg PO 3 TIMES PER WEEK PRN PRN Reason: Swelling Metoprolol Tartrate (Lopressor) 100 mg PO BIDWM [facility] Last Admin: 02/16/17 09:13 Dose: 100 mg Morphine Sulfate (Ms Contin) 60 mg PO BID [facility] Last Admin: 02/16/17 09:13 Dose: 60 mg Nitroglycerin (Nitrostat) 0.4 mg SL Q5MIN X 3 DOSES PRN PRN Reason: CHEST PAIN Nortriptyline HCl (Pamelor) 50 mg PO BEDTIME [facility] Last Admin: 02/15/17 20:23 Dose: 50 mg Omeprazole (Prilosec) 20 mg PO QDAC [facility] Last Admin: 02/16/17 05:56 Dose: 20 mg Oxycodone HCl (Oxycodone) 60 mg PO Q8H PRN PRN Reason: PAIN Potassium Chloride (K-Dur) 20 meq PO DAILYWM [facility] Last Admin: 02/16/17 09:13 Dose: 20 meq Trazodone HCl (Desyrel) 150 mg PO BEDTIME [facility] Last Admin: 02/15/17 20:24 Dose: 150 mg Zolpidem Tartrate (Ambien) 10 mg PO BEDTIME [facility] Last Admin: 02/15/17 20:30 Dose: 10 mg ALLERGIES lisinopril [From Zestril] Adverse Reaction (Severe, Verified 05/20/16 11:04) Swelling baclofen Adverse Reaction (Verified 05/20/16 10:57) Unknown NEW PRESCRIPTIONS: NONE SMOKING: THE PATIENT HAS RECEIVED INFORMATION REGARDING THE BENEFITS OF COMPLETE SMOKING CESSATION. HE IS ALSO MADE AWARE OF THE ADDED RISK TO HIS CARDIOVASCULAR HEALTH SMOKING POSES. HE HAS NOT MADE THE COMMITMENT TO STOP SMOKING. HE WILL BENEFIT FROM REINFORCEMENT AND ENCOURAGEMENT TO STOP SMOKING IN THE OUTPATIENT SETTING. DISEASE SPECIFIC EDUCATION: EDEMA CHEST PAIN LIFE-STYLE CHANGES TO REDUCE ADVERSE HEALTH HOME MEDICATIONS FOLLOW UP LAB REVIEW: 02/16/17 04:05 02/16/17 04:05 02/16/17 04:05: Sodium 129 L, Potassium 3.7, Chloride 94 L, Carbon Dioxide 29, Anion Gap 9.7, BUN 14, Creatinine 1.37 H, Estimated GFR (MDRD) 53.00, BUN/ Creatinine Ratio 10.21, Glucose 93, Calcium 8.6, Total Bilirubin 0.7, AST 13 L, ALT 6 L, Alkaline Phosphatase 101, Total Protein 5.6 L, Albumin 2.7 L, Globulin 2.9, Albumin/Globulin Ratio 0.93 02/16/17 04:05: WBC 8.67, RBC 4.94, Hgb 13.1 L, Hct 40.3 L, MCV 81.6, MCH 26.5 L , MCHC 32.5, RDW Coeff of Lety 14.7, Plt Count 146, Immature Gran % (Auto) 0.3, Neut % (Auto) 56.3, Lymph % (Auto) 30.8, Reeves % (Auto) 7.4, Eos % (Auto) 4.6, Baso % (Auto) 0.6, Immature Gran # (Auto) 0.0, Neut # 4.9, Lymph # 2.7, Reeves # 0.6, Eos # 0.4, Baso # 0.1 PLAN: DISCHARGE HOME TODAY RETURN TO SEE DR. DE LA PAZ IN 5-7 DAYS. PLEASE PHONE THE OFFICE TO SCHEDULE YOUR FOLLOW UP VISIT. [phone] [facility] OUTPATIENT REGISTRATION TO HAVE LABS ONE DAY PRIOR TO YOUR FOLLOW UP VISIT WITH DR. DE LA PAZ RESUME YOUR HOME MEDICATIONS PER LIST PROVIDED BY THE NURSING STAFF NO NEW PRESCRIPTIONS ACTIVITY GET PLENTY OF REST AT HOME. GRADUALLY INCREASE YOUR ACTIVITY LEVEL ACCORDING TO YOUR TOLERATION KEEP YOUR FEET AND LEGS ELEVATED OFTEN POSSIBLE STOP SMOKING DIET HEALTHY HEART SUMMARY THE PATIENT IS ALERT AND ORIENTED X3. HE CURRENTLY RESIDES AT HOME WITH HIS SPOUSE, ADULT CHILDREN AND GRANDCHILDREN. HE REQUIRES LITTLE ASSIST WITH ADL' S. THE FAMILY ARE ALL SUPPORTIVE OF HIS NEEDS WHEN NECESSARY. AT HOME HE HAS A MOTOR SCOOTER AND WHEELCHAIR. HE USES A QUAD CANE TO ASSIST WITH AMBULATING. HE ALSO HAS OXYGEN, A C-PAP AND NEBULIZER FOR BREATHING TREATMENTS AT HOME. HE HAS HAD HOME HEALTH IN THE PAST BUT CURRENTLY DOES NOT USE THESE SERVICES OR PRIVATE DUTY HOMEMAKING SERVICE. HE DESIRES TO RETURN HOME AT DISCHARGE. MR. DENISE'S HYDRATION AND NUTRITIONAL STATUS ARE VERY GOOD. HE DRINKS LARGE AMOUNTS OF LIQUIDS VERY FREQUENTLY AND IS ABLE TO EAT VERY WELL. HE HAS NO DECUBITUS ULCERS AT DISCHARGE. HIS SKIN TURGOR IS INTACT. CURRENT CODE STATUS FULL CODE SOLANGE GONZALES APRN CARLOS DE LA PAZ M.D.
--- NOTE | 2017-02-16 15:13 | PN ---
DATE OF SERVICE: 02/16/17 SUBJECTIVE: The patient was hospitalized with multiple complaints. The pain was noncardiac, shortness of breath secondary to inactivity and chronic lung disease with smoking. Counseling for smoking done. Blood pressure was high because of noncompliance. He is advised to take his medication Lopressor, Norvasc, Lasix, Clonidine prescribed. The patient's prognosis is not good unless he controls his lifestyle, losses weight and quits smoking. PHYSICAL EXAMINATION: HEENT: Head normocephalic, atraumatic. Eyes: Extraocular muscles are intact. Pupils are equal, round and reactive to light and accommodation. Ears: No lesions. Nose appeared normal. Throat: No exudate or erythema. NECK: Supple. No JVD, no carotid bruit. No lymphadenopathy or thyromegaly. LUNGS: Clear to auscultation. Percussion note normal. Chest symmetrical. HEART: S1, S2, no S3. No murmurs. No cyanosis or clubbing. No ascites. Pulses: Dorsalis pedis and posterior tibial pulses +1 to +2 both sides. ABDOMEN: Soft. Nontender. Bowel sounds active. No CVA tenderness. No mass felt. EXTREMITIES: No edema. Full range of motion of all extremities, equal. NEUROLOGIC: No focal deficit. Cranial nerves II through XII are grossly intact. No headache, no double vision or headache. SKIN: Not dry. Intact. Turgor - normal. LYMPHATIC: No palpable lymph nodes/no lymphedema. MUSCULOSKELETAL: Normal joints with no swelling. Muscle tone is normal. The patient was seen and examined with Nurse Practitioner. TIME SPENT: More than 30 minutes. Plan and coordination of the patient's care discussed in the presence of nurse. REENA
--- NOTE | 2017-02-16 15:14 | PN ---
02/12/17: Level 5 02/13/17: Intermediate 02/14/17: Intermediate 02/15/17: Intermediate 02/16/17: D as in discharge, Extensive MTDD
--- NOTE | 2017-02-18 11:22 | PN ---
DATE OF SERVICE: 02/15/17 SUBJECTIVE: 56 year old white male hospitalized with chest pain which seems to be noncardiac , shortness of breath is somewhat better, his leg edema is subsided. Neurological status is stable. Left upper extremity hand weakness is from carpal tunnel syndrome and cervical radiculopathy. His kidney functions are stable. Counseling for smoking done. Also counseling for weight loss, diet done. The patient was seen and examined with Nurse Practitioner. TIME SPENT: More than 30 minutes. Plan and coordination of the patient's care discussed in the presence of nurse. REENA
--- NOTE | 2017-02-24 14:49 | PN ---
DATE OF SERVICE: 02/14/17 SUBJECTIVE: 56-year-old white male hospitalized with multiple complaints like chest pain which was fairly atypical, was short of breath, headache, leg edema, fullness of the left upper extremity. The patient's headache is still there with no other neurological deficit. His left upper arm weakness still persists with weak member services coordinator. The patient has carpal tunnel syndrome and cervical radiculopathy. The patient is moving all of his extremities. He is oriented to time, place and person. Face is symmetrical. Neurological exam is completely normal. The patient's blood pressure is better 159/87 today. No shortness of breath noted. PHYSICAL EXAMINATION: V/S: Temperature 98.2, pulse 54, respiratory rate 16, BP 159/87, pulse ox 93% on room air. HEENT: Head normocephalic, atraumatic. Eyes: Extraocular muscles are intact. Pupils are equal, round and reactive to light and accommodation. Ears: No lesions. Nose appeared normal. Throat: No exudate or erythema. NECK: Supple. No JVD, no carotid bruit. No lymphadenopathy or thyromegaly. LUNGS: Decreased breath sounds but clear to auscultation. Percussion note normal. Chest symmetrical. HEART: S1, S2, no S3. No murmurs. No cyanosis or clubbing. No ascites. Pulses: Dorsalis pedis and posterior tibial pulses +1 to +2 both sides. ABDOMEN: Soft. Nontender. Bowel sounds active. No CVA tenderness. No mass felt. EXTREMITIES: No edema. Full range of motion of all extremities, equal. NEUROLOGIC: No focal deficit. Cranial nerves II through XII are grossly intact. No headache, no double vision or headache. SKIN: Not dry. Intact. Turgor - normal. LYMPHATIC: No palpable lymph nodes/no lymphedema. MUSCULOSKELETAL: Normal joints with no swelling. Muscle tone is normal. ASSESSMENT: 1. Hypertension, under control 2. Leg edema, resolved 3. Left arm weakness, numbness likely from cervical radiculopathy and carpal tunnel syndrome 4. Headache likely from cervical osteoarthritis and migraine type 5. Generalized osteoarthritis, severe 6. Smoking with COPD Counseling for smoking done. The patient is at least 60 pounds overweight. Advised to lose weight. Weight loss diet discussed. Advised to exercise. Advised to join pulmonary rehab. CONDITION: Stable. TIME SPENT: More than 30 minutes. Plan and coordination of the patient's care discussed in the presence of nurse. REENA
--- NOTE | 2017-02-24 15:02 | PN ---
DATE OF SERVICE: 02/13/17 SUBJECTIVE: 56-year-old white male hospitalized with severe hypertension, shortness of breath, left arm numbness, leg edema, fatigue, tired feeling. The patient has been feeling a lot better. The patient's blood pressure is now 152/85. He is feeling better. His leg edema has practically subsided. The CT scan that was done yesterday shows small vessel disease. The last carotid scan that was done showed less than 50% occlusion of carotid arteries. REVIEW OF SYSTEMS: CONSTITUTIONAL: The patient is feeling better. No night sweats. No fatigue, malaise, lethargy. No fever or chills. HEENT: Eyes: No visual changes. No eye pain. No eye discharge. ENT: No runny nose. No epistaxis. No sinus pain. No sore throat. No odynophagia. No congestion. RESPIRATORY: No cough, no congestion. No hemoptysis. No shortness of breath. No PND. CARDIOVASCULAR: No angina symptoms. No CHF symptoms. No atypical chest pain for CAD. No palpitations. No orthopnea. GASTROINTESTINAL: Appetite seems to have improved. No abdominal pain. No nausea or vomiting. No diarrhea or constipation. No hematemesis. No hematochezia. GENITOURINARY: No urgency. No frequency. No dysuria. No hematuria. No obstructive symptoms. No discharge. No pain. No significant abnormal bleeding. MUSCULOSKELETAL: No musculoskeletal pain; no joint swelling. NEUROLOGICAL: Still has left arm numbness likely from carpal tunnel syndrome and/or cervical radiculopathy. The patient has severe DJD of the spine. No headache. No neck pain. No syncope. No seizures. No dizziness. PSYCHIATRIC: Not anxious. No depression. No suicidal thoughts. No homicidal thoughts. SKIN: No rash. No lesions. No wounds. ENDOCRINE: No unexplained weight loss. No weight gain. HEMATOLOGIC/LYMPHATIC: No anemia. No purpura. No petechiae. No prolonged or excessive bleeding. No palpable lymph nodes. PHYSICAL EXAMINATION: VITAL SIGNS: Temperature 98.1, pulse 64, respiratory rate 19, BP 152/85, pulse ox 96% on room air. HEENT: Head normocephalic, atraumatic. Eyes: Extraocular muscles are intact. Pupils are equal, round and reactive to light and accommodation. Ears: No lesions. Nose appeared normal. Throat: No exudate or erythema. NECK: Supple. No JVD, no carotid bruit. No lymphadenopathy or thyromegaly. LUNGS: Decreased breath sounds but clear to auscultation. Percussion note normal. Chest symmetrical. HEART: S1, S2, no S3. No murmurs. No cyanosis or clubbing. No ascites. Pulses: Dorsalis pedis and posterior tibial pulses +1 to +2 both sides. ABDOMEN: Soft. Nontender. Bowel sounds active. No CVA tenderness. No mass felt. EXTREMITIES: Trace edema noted. Full range of motion of all extremities, equal. NEUROLOGIC: No focal deficit. Cranial nerves II through XII are grossly intact. No headache, no double vision or headache. SKIN: Not dry. Intact. Turgor - normal. LYMPHATIC: No palpable lymph nodes/no lymphedema. MUSCULOSKELETAL: Normal joints with no swelling. Muscle tone is normal. LABS: CBC showed 13.9, hematocrit 43, WBC 7,300, normal differential. Creatinine 1.4, BUN 14, potassium 3.9. ASSESSMENT: 1. SHORTNESS OF BREATH/CHEST PAIN DOESN'T SEEM TO BE CARDIAC. CARDIAC MARKERS NEGATIVE. EKG NO ACUTE CHANGES. 2. HYPERTENSION SEEMS TO BE UNDER CONTROL. THE PATIENT HAD FLUID RETENTION STATUS WHICH HAPPENS IN HIS CASE BECAUSE OF NONCOMPLIANCE OF DIET AND INCREASED SALT INTAKE, ET CETERA. 3. LEFT ARM AND LEFT WRIST NUMBNESS WITH WEAKNESS LIKELY FROM LOCAL FACTORS LIKE CERVICAL RADICULOPATHY OR CARPAL TUNNEL SYNDROME. THERE IS NO EVIDENCE OF ANY NEUROLOGICAL DEFICIT OTHER THAN THE WEAKNESS OF THE LEFT UPPER EXTREMITY. PATIENT HAS IT CHRONICALLY. THE PATIENT'S CT SCAN WAS NEGATIVE FOR LEG EDEMA WHICH HAS RESOLVED, LIKELY DEPENDENT EDEMA. PLAN: 1. Continue all the medications. 2. Again, education carried out about the diet, elevate the legs. 3. Will probably do echo if it is not done in the past one year to evaluate LV function Hemoglobin 13.9, hematocrit 43, WBC 7,300, normal differential. Creatinine 1.4, BUN 14, potassium 3.9. TIME SPENT: More than 30 minutes. Plan and coordination of the patient's care discussed in the presence of nurse. REENA
[2017-02-25] MEDS ORDERED: VITAMIN B-12 IM SCH (14:00)
--- NOTE | 2017-02-25 15:53 | HP ---
DATE OF SERVICE: 02/12/17 HISTORY OF PRESENT ILLNESS: This is a 56-year-old male who was not feeling good this week with headache/arm pain and more agitated lately. PAST MEDICAL HISTORY: Hypertension [place] CAD CKD COPD B12 deficiency anemia Migraines Dyslipidemia Chronic back pain Renal artery stenosis with stent Depression Sleep apnea on CPAP PSA 12/10 (2.1); 7-16 (0.5) Dr. Nolasco follows PAST SURGICAL HISTORY: Back surgery 1999 Renal artery stent 2000, 2002 and 2006 Gallbladder 2004 Hernia 2004 REVIEW OF SYSTEMS: CONSTITUTIONAL: Positive for fatigue. No fever. HEENT: No sinus drainage, no sore throat. RESPIRATORY: No cough, no congestion. No hemoptysis. CARDIOVASCULAR: No atypical chest pain for coronary artery disease. No angina , CHF symptoms, palpitations or shortness of breath. GASTROINTESTINAL: No melena or abdominal pain. No GERD. GENITOURINARY: No hematuria, no prostatism, no polyuria. ADMINISTRATIVE ACCOUNTANT: No blackout, no dizziness, no headache, no double vision. Gait - cane. MUSCULOSKELETAL: Osteoarthritis pain. ENDOCRINE: Weight gain of 4 lbs. SKIN: Not dry, no rash. PSYCHIATRIC: Anxious. No depression, no suicidal thoughts, no homicidal thoughts. SOCIAL HISTORY: Smoker - one pack per day for 25 years. . No alcohol use. No illicit drug use. Disabled. Three children. FAMILY HISTORY: Father at age 69, CVA, hypertension. Mother age 68 of [place]. Two brothers and three sisters. MEDICATIONS: Lipitor 80 mg daily Lopressor 100 mg b.i.d. Lexapro 20 mg daily Xanax 0.5 mg b.i.d. Plavix 75 mg daily Oxycodone 30 mg two pills q.8hr Trazodone 150 mg h.s. Morphine 60 mg b.i.d. Ambien 10 mg h.s. Pamelor 25 mg two at h.s. Nitroglycerin p.r.n. Norvasc 5 mg daily Lasix 40 mg daily K+ 20 mEq daily ASA 81 mg daily Protonix 20 mg daily B12 1000 mg IM monthly Zaroxolyn 2.5 mg three times a week 02 p.r.n. ALLERGIES: BACLOFEN, ZESTRIL (01/23/16) PHYSICAL EXAMINATION: V/S: Pulse 106, BP 200/120, 02 sat 96%, weight 265.8 lbs. Height 6'1". BMI 35.1 GENERAL APPEARANCE: Oriented times three. HEENT: Normal. NECK: No JVP, no bruits. RESPIRATORY: Lungs are clear with decreased breath sounds. CARDIOVASCULAR: S1, S2, no S3, no murmurs. Tacky. No cyanosis, clubbing. No ascites. GI/ABDOMEN: Tenderness. Bowel sounds are active. EXTREMITIES: +1 bilateral edema, pulses +1, equal. ADMINISTRATIVE ACCOUNTANT: Deep tendon reflexes, sensory, motor and gait all normal. RECTAL/PROSTATE: 01/15 (0.4). Dr. Shaver 2009 colonoscopy. LABS AND X-RAY FINDINGS: Carotid scan less than 50% blocked arteries, right and left internal carotid. CT scan of the head - chronic small vessel disease, no acute findings. Chest x- ray normal. Creatinine 1.2, BUN 13, CK-MB 5.2 with normal CK level. Liver profile normal. Hemoglobin 14.1, hematocrit 43, WBC 7,000, normal differential. ASSESSMENT: 1. SEVERE HYPERTENSION 2. CHEST PAIN 3. SHORTNESS OF BREATH 4. LEG EDEMA 5. LEFT ARM NUMBNESS 6. CERVICAL RADICULOPATHY 7. HISTORY OF CTS 8. RENAL ARTERY STENOSIS WITH STENTS 2006, RIGHT BLOCKED, DR. SIDDIQUI 9. BRIAN 10. HYPERTENSION 11. MIGRAINES, HEADACHE, DR. SANTOS 12. HYPERLIPIDEMIA 13. DEPRESSION 14. CKD-2 15. SLEEP APNEA, ON OXYGEN 16. LEFT SPINE SURGERY, DR. LAW 2000 17. SMOKER 18. CVA, DR. SANTOS, 3 YEARS AGO 19. CAD, NONOCCLUSIVE 2010 PLAN: 1. Admit routine telemetry orders 2. Carotid scan, CT scan of head without contrast 3. Vasotec 1.25 mg IV now and q.8hr for systolic BP greater than 160 4. IV Lasix 40 mg times one dose 5. Continue all medications 6. Elevate legs 7. Dietary consult for weight loss 8. Smoking cessation advised TIME SPENT: More than 70 minutes. MTDD
--- NOTE | 2017-03-04 13:43 | DS ---
DATE OF SERVICE: 02/16/17 FINAL DIAGNOSIS: 1. CHEST PAIN 2. LEG EDEMA 3. SHORTNESS OF BREATH 4. SEVERE HYPERTENSION 5. DEHYDRATION 6. COPD 7. CONGESTIVE HEART FAILURE BY HISTORY 8. CHRONIC KIDNEY DISEASE 9. CAD STATUS POST STENT APPLICATION 10. DYSLIPIDEMIA 11. DEPRESSION/ANXIETY 12. B12 DEFICIENCY 13. SLEEP APNEA NONCOMPLIANT WITH CPAP 14. DJD OF THE SPINE 15. GERD 16. CURRENT EVERY DAY SMOKER DISCHARGE INSTRUCTIONS: Followup appointment: Return to see Dr. Love in 5 to 7 days. Please phone the office to schedule your followup visit. Return to [facility] to have labs one day prior to your follow up visit with Dr. Love. MEDICATIONS AT DISCHARGE: Xanax 0.5 mg p.o. b.i.d. SINGH Norvasc 5 mg p.o. b.i.d. SINGH Aspirin 81 mg p.o. daily with meal Lipitor 80 mg p.o. daily [facility] Catapres 0.3 mg p.o. b.i.d. SING[facility] Plavix 75 mg p.o. daily [facility] Vitamin B12 1000 mcg IM monthly [facility]ING[facility] Lexapro 20 mg p.o. daily [facility]ING[facility] Lasix 40 mg p.o. q.d a.c. SING[facility] Zaroxolyn 2.5 mg p.o. three times per week p.r.n. Lopressor 100 mg p.o. b.i.d. with meal [facility]ING[facility] MS Contin 60 mg p.o. b.i.d. SINGH Nitrostat 0.4 mg SL q.5 min times three doses p.r.n. Pamelor 50 mg p.o. bedtime [facility]ING[facility] Prilosec 20 mg p.o. q.d. a.c. [facility]ING[facility] Oxycodone 60 mg p.o. q.8h p.r.n. K-Dur 20 mEq p.o. daily with meal [facility]ING[facility] Desyrel 150 mg p.o. bedtime SINGH Ambien 10 mg p.o. bedtime SINGH NEW PRESCRIPTIONS: None new DIET INSTRUCTIONS: Healthy Heart ACTIVITY: Get plenty of rest at home. Gradually increase your activity level according to your toleration. Keep your feet and legs elevated as often as possible. SMOKING: Stop smoking. The patient has received information regarding the benefits of complete smoking cessation. He is also made aware of the added risk to his cardiovascular health smoking poses. He has not the commitment to stop smoking. He will benefit fromn reinforcement and encouragement to stop smoking in the outpatient setting. DISEASE SPECIFIC EDUCATION: Edema Chest pain Life-style changes to reduce adverse health Home medications Follow up HOSPITAL COURSE: This is a 56-year-old white male who was a direct admit from our office. He presented to our office experiencing some shortness of breath, severe hypertension, worsening leg edema and some typical type chest pain. He was subsequently admitted to the hospital after being admitted, given IV Toradol, elevating his legs and putting him in a controlled environment. His hypertension has been under control. He has received Vasotec 1.25 mg IV one time during his hospital stay. His shortness of breath is greatly improved. He has not smoked his entire time in the hospital. he is a heavy smoker. Smoking cessation has been recommended and was discussed in detail with the patient today. His leg edema has resolved with his low sodium diet, continuing his normal medications of Lasix 40 mg daily and elevating his legs. He recently had an echocardiogram by Dr. Love in April of 2016. He did not experience any chest pain in the hospital. All of his cardiac markers were negative, showed no signs of change. His EKG was unchanged from previous. He had been on routine telemetry during his hospital stay, all which has been normal. The patient's kidney function has been slightly elevated which he does have chronic kidney disease and this is normal for him. Today his sodium is somewhat lower but he has been drinking excessively due to the fact that he has not been smoking. The patient has a history of labile hypertension. It seems that this is more controlled in the hospital environment. There may be some issue of noncompliance with medications and lifestyle at home. Today, on day of discharge , the patient states that his shortness of breath is resolved. He does not require oxygen at home. He does have breathing treatments if needed as well as a CPAP machine. He is instructed that he needs to walk daily and lose weight. He has a history of CVA for which he sees Dr. Fleming every three months. His condition is stable. His blood pressure is under control at 140/87 today. Heart rate 50, temperature 97.5, respirations 16, pulse ox 96% on room air. He has been up and about eating 50 to 100% of his meals. He has been walking around with no shortness of breath on exertion. We will discharge him home today with no new medications. Discussed with him lifestyle changes to reduce the risk of adverse health issues along with necessary medication regimen and followup. We will follow up with him next week in the office. TIME SPENT: More than 60 minutes. REENA
== END 2017-02-16 11:15 | disposition home or self-care (01) | DRG 313 ==
LOC: MEDSURG B 12:08
PROVIDERS: ADMIT Internal Medicine; ATTEND Internal Medicine
DX: R07.9 Chest pain, unspecified (principal); R60.0 Localized edema; R06.02 Shortness of breath; I10 Essential (primary) hypertension; E86.0 Dehydration; J44.9 Chronic obstructive pulmonary disease, unspecified; I50.9 Heart failure, unspecified; I12.9 Hypertensive chronic kidney disease with stage 1 through stage 4 chronic kidney disease, or unspecified chronic kidney disease; N18.9 Chronic kidney disease, unspecified; I25.2 Old myocardial infarction; I25.10 Atherosclerotic heart disease of native coronary artery without angina pectoris; E78.5 Hyperlipidemia, unspecified; F41.8 Other specified anxiety disorders; M54.12 Radiculopathy, cervical region; G56.02 Carpal tunnel syndrome, left upper limb; M15.9 Polyosteoarthritis, unspecified; E53.8 Deficiency of other specified B group vitamins; G47.30 Sleep apnea, unspecified; M47.9 Spondylosis, unspecified; K21.9 Gastro-esophageal reflux disease without esophagitis; F17.200 Nicotine dependence, unspecified, uncomplicated; Z86.73 Personal history of transient ischemic attack (TIA), and cerebral infarction without residual deficits; Z91.19 Patient's noncompliance with other medical treatment and regimen; Z95.5 Presence of coronary angioplasty implant and graft; Z79.02 Long term (current) use of antithrombotics/antiplatelets; Z79.899 Other long term (current) drug therapy
CPT/HCPCS: 36415; 80053; 81001; 82550; 82553; 83874; 84484; 85025; 93005; 93010; 97802

== ENCOUNTER 2017-07-12 15:24 | Observation (INO) ==
[2017-07-12 16:05] VITALS: BMI 35.4
[2017-07-12] MEDS ORDERED: ATROPINE SULFATE PFS IVP PRN (16:32)
[2017-07-12] MEDS ORDERED: TYLENOL PO PRN (16:32)
[2017-07-12] MEDS ORDERED: MORPHINE 4 MG/ML VIAL IVP PRN (16:32)
[2017-07-12] MEDS ORDERED: VASOTEC IV IVP PRN (16:37)
[2017-07-12] MEDS ORDERED: VASOTEC IV IVP STA (16:37)
[2017-07-12] MEDS ORDERED: ZAROXOLYN PO PRN (16:50)
[2017-07-12] MEDS ORDERED: OXYCODONE HCL 60 MG PO PRN (16:50)
[2017-07-12] MEDS ORDERED: NON-FORMULARY MEDICATION (Nitroglycerin [Nitrostat] 0.3 MG) SL PRN (16:50)
[2017-07-12] MEDS ORDERED: LOPRESSOR IVP STA (17:10)
[2017-07-12] MEDS: LASIX IVP SCH (17:25)
[2017-07-12] MEDS: ROCEPHIN 1 GM in SODIUM CHLORIDE 50 ML IV SCH (17:26)
[2017-07-12] MEDS ORDERED: MORPHINE SULFATE TAB ONE (20:18)
[2017-07-12] MEDS ORDERED: CATAPRES ONE ×2 (20:18→20:24)
[2017-07-12] MEDS ORDERED: LOPRESSOR ONE ×2 (20:18→20:23)
[2017-07-12] MEDS ORDERED: AMBIEN ONE ×2 (20:19→20:24)
[2017-07-12] MEDS ORDERED: DESYREL ONE ×2 (20:19→20:26)
[2017-07-12] MEDS: XANAX PO SCH (20:25)
[2017-07-12] MEDS ORDERED: PAMELOR PO SCH (21:00)
[2017-07-12] MEDS ORDERED: NON-FORMULARY MEDICATION (Clonidine Hcl [Clonidine Hcl] 0.3 MG) PO SCH (21:00)
[2017-07-12] MEDS ORDERED: NON-FORMULARY MEDICATION (Zolpidem Tartrate [Ambien] 10 MG) PO SCH (21:00)
[2017-07-12] MEDS ORDERED: MORPHINE SULFATE 60 MG PO SCH (21:00)
[2017-07-12] MEDS ORDERED: TRAZODONE HCL 150 MG PO SCH (21:00)
[2017-07-12] MEDS ORDERED: NON-FORMULARY MEDICATION (Metoprolol Tartrate [Lopressor] 100 MG) PO SCH (21:00)
[2017-07-12] MEDS ORDERED: NORVASC PO STA (22:37)
[2017-07-13] MEDS ORDERED: PRILOSEC ONE (04:20)
[2017-07-13] MEDS ORDERED: LASIX TAB ONE (04:20)
[2017-07-13] MEDS: LASIX IVP SCH (05:39)
[2017-07-13] MEDS ORDERED: PROTONIX ONE (05:50)
[2017-07-13] MEDS ORDERED: OXYCONTIN ONE (05:51)
[2017-07-13] MEDS ORDERED: PANTOPRAZOLE SODIUM 20 MG PO SCH ×2 (06:00→06:30)
[2017-07-13] MEDS ORDERED: LASIX TAB PO SCH (06:30)
[2017-07-13] MEDS ORDERED: NITROSTAT SL PRN (07:23)
[2017-07-13] MEDS ORDERED: OXYCODONE PO PRN (07:28)
--- NOTE | 2017-07-13 07:32 | DI ---
EXAM: PA and lateral views of the chest HISTORY: Shortness of breath and chronic obstructive pulmonary disease COMPARISON: Chest x-ray 02/12/2017 FINDINGS: The cardiomediastinal silhouette is unchanged. There is no pneumothorax or pleural effusi on. There is no consolidation, nodule or mass. The osseous structures are stable with degenerative disease of the spine. IMPRESSION: No acute cardiopulmonary process or consolidation.
--- NOTE | 2017-07-13 08:12 | DI ---
EXAM: Radiographs, right knee HISTORY: Right knee pain. COMPARISON: None available. TECHNIQUE: Four views. FINDINGS: Bone mineralization is normal. No fracture or dislocation identified. Mild joint space n arrowing and marginal osteophyte formation seen throughout the knee. No erosions are seen. Moderate patellar enthesopathy noted. Diffuse subcutaneous edema is present. IMPRESSION: 1. Mild osteoarthritis. 2. Patellar enthesopathy. 3. Subcutaneous edema.
--- NOTE | 2017-07-13 08:12 | DI ---
EXAM: Radiographs, left knee HISTORY: Left knee pain. COMPARISON: None available. TECHNIQUE: Four views. FINDINGS: Mild joint space narrowing and marginal osteophyte formation seen throughout the knee. Mo derate patellar enthesopathy is present. No erosions are seen. No fracture or dislocation detected. Diffuse subcutaneous edema is present. IMPRESSION: 1. Mild osteoarthritis. 2. Patellar enthesopathy. 3. Subcutaneous edema.
[2017-07-13] MEDS ORDERED: NON-FORMULARY MEDICATION (Atorvastatin Calcium [Lipitor] 80 MG) PO SCH (09:00)
[2017-07-13] MEDS: ROCEPHIN 1 GM in SODIUM CHLORIDE 50 ML IV SCH (09:16)
[2017-07-13] MEDS: BACTROBAN TP SCH ×2 (09:16→21:09)
[2017-07-13] MEDS: ALDACTONE PO SCH (09:17)
[2017-07-13] MEDS: CATAPRES PO SCH ×2 (09:17→21:04)
[2017-07-13] MEDS: K-DUR PO SCH (09:17)
[2017-07-13] MEDS: ASPIRIN EC PO SCH (09:17)
[2017-07-13] MEDS: LOPRESSOR PO SCH ×2 (09:18→21:07)
[2017-07-13] MEDS: LEXAPRO PO SCH (09:18)
[2017-07-13] MEDS: PLAVIX PO SCH (09:19)
[2017-07-13] MEDS: NORVASC PO SCH (09:19)
[2017-07-13] MEDS: XANAX PO SCH ×2 (09:19→21:06)
--- NOTE | 2017-07-13 09:50 | PCM.PROG ---
Attending Provider: ATTENDING PROVIDER: Dr. CARLOS DE LA PAZ This patient is seen with Charo Collins, Nurse Practitioner. DATE OF SERVICE: 07/13/17 SUBJECTIVE: This 57 year old WHITE/ M was hospitalized 07/12/17. The patient is lying in bed, alert. No fever. Blood pressure has improved. Chest x-ray normal. X-ray of knees pending. Leg edema significantly improved. REVIEW OF SYSTEMS: CONSTITUTIONAL: No night sweats. No fatigue, malaise, lethargy. No fever or chills. HEENT: Eyes: No visual changes. No eye pain. No eye discharge. ENT: No runny nose. No epistaxis. No sinus pain. No odynophagia. No congestion. RESPIRATORY: No cough, no congestion. No hemoptysis. No shortness of breath. CARDIOVASCULAR: No angina symptoms. No CHF symptoms. No atypical chest pain for CAD. No palpitations. No orthopnea.. GASTROINTESTINAL: No abdominal pain. No nausea or vomiting. No diarrhea or constipation. No hematemesis. No hematochezia. GENITOURINARY: No urgency. No frequency. No dysuria. No hematuria. No obstructive symptoms. No discharge. No pain. No significant abnormal bleeding. MUSCULOSKELETAL: Right leg swelling and redness. Leg edema. NEUROLOGICAL: Awake, alert, oriented to time, place and person. No headache. No neck pain. No syncope. No seizures. No dizziness. PSYCHIATRIC: Not anxious. No depression. No suicidal thoughts. No homicidal thoughts. SKIN: No rash. No lesions. No wounds. ENDOCRINE: No unexplained weight loss. No weight gain. HEMATOLOGIC/LYMPHATIC: No anemia. No purpura. No petechiae. No prolonged or excessive bleeding. No palpable lymph nodes. PHYSICAL EXAMINATION: GENERAL: The patient is awake, alert and oriented, lying in bed in no distress. VITAL SIGNS: Temperature 97.9 F, Pulse 65, Respiratory Rate 19, BP 140/77, Pulse Ox 94% HEENT: Head normocephalic, atraumatic. Eyes: Extraocular muscles are intact. Pupils are equal, round and reactive to light and accommodation. Ears: No lesions. Nose appeared normal. Throat: No exudate or erythema. NECK: Supple. No JVD, no carotid bruit. No lymphadenopathy or thyromegaly. LUNGS: Diminished breath sounds bilaterally. Clear to auscultation. Percussion note normal. Chest symmetrical. HEART: S1, S2, no S3. No murmurs. No cyanosis or clubbing. No ascites. Pulses: Dorsalis pedis and posterior tibial pulses +1 to +2 both sides. ABDOMEN: Soft. Non-tender. Bowel sounds active. No CVA tenderness. No mass felt. EXTREMITIES: +1 edema right lower extremity with erythema - improving; +1 edema left lower extremity, no redness, no edema. Full range of motion of all extremities, equal. NEUROLOGIC: No focal deficit. Cranial nerves II through XII are grossly intact. No headache, no double vision or headache. SKIN: Not dry. Intact. Turgor-normal. LYMPHATIC: No palpable lymph nodes/no lymphedema. MUSCULOSKELETAL: Normal joints with no swelling. Muscle tone is normal. LAB REVIEW: 07/13/17 01:20 07/13/17 01:20 07/13/17 01:20: Sodium 141, Potassium 3.8, Chloride 98, Carbon Dioxide 34 H, Anion Gap 12.8, BUN 12, Creatinine 1.51 H, Estimated GFR (MDRD) 48.00, BUN/ Creatinine Ratio 7.94, Glucose 98, Calcium 9.0, Total Bilirubin 0.6, AST 16, ALT 12, Alkaline Phosphatase 118, Total Protein 6.7, Albumin 3.0 L, Globulin 3.7 , Albumin/Globulin Ratio 0.81 07/13/17 01:20: WBC 9.47, RBC 5.02, Hgb 13.8 L, Hct 42.8, MCV 85.3, MCH 27.5, MCHC 32.2, RDW Coeff of Lety 14.9 H, Plt Count 168, Immature Gran % (Auto) 0.3, Neut % (Auto) 59.8, Lymph % (Auto) 28.0, [place] % (Auto) 7.9, Eos % (Auto) 3.2, Baso % (Auto) 0.8, Immature Gran # (Auto) 0.0, Neut # (Auto) 5.7, Lymph # (Auto ) 2.7, [place] # (Auto) 0.8, Eos # (Auto) 0.3, Baso # (Auto) 0.1 07/13/17 01:20: Total Creatine Kinase 157, CK-MB (CK-2) 2.4, CK-MB (CK-2) % 1.32219, Troponin I 0.0260 07/12/17 18:30: Urine Color Yellow, Urine Clarity Clear, Urine pH 7.0, Ur Specific [place] 1.015, Urine Protein 1+, Urine Glucose (UA) Negative, Urine Ketones Negative, Urine Blood 1+, Urine Nitrite Negative, Urine Bilirubin Negative, Urine Urobilinogen 0.2, Ur Leukocyte Esterase Negative, Urine Microscopic RBC 5-10, Ur Squamous Epith Cells 0-2, Urine Bacteria Trace 07/12/17 16:58: Sodium 140, Potassium 3.7, Chloride 101, Carbon Dioxide 29, Anion Gap 13.7, BUN 12, Creatinine 1.43 H, Estimated GFR (MDRD) 51.00, BUN/ Creatinine Ratio 8.39, Glucose 98, Calcium 9.3, Total Bilirubin 0.6, AST 19, ALT 14, Alkaline Phosphatase 130 H, Total Creatine Kinase 203, CK-MB (CK-2) 3.6 , CK-MB (CK-2) % 1.16361, Troponin I 0.0100, Total Protein 7.4, Albumin 3.4, Globulin 4.0, Albumin/Globulin Ratio 0.85 07/12/17 16:58: WBC 11.53 H, RBC 5.41, Hgb 14.8, Hct 45.6, MCV 84.3, MCH 27.4, MCHC 32.5, RDW Coeff of Lety 14.7, Plt Count 172, Immature Gran % (Auto) 0.3, Neut % (Auto) 70.8, Lymph % (Auto) 18.9, [place] % (Auto) 7.5, Eos % (Auto) 2.0, Baso % (Auto) 0.5, Immature Gran # (Auto) 0.0, Neut # (Auto) 8.2 H, Lymph # ( Auto) 2.2, [place] # (Auto) 0.9, Eos # (Auto) 0.2, Baso # (Auto) 0.1 ASSESSMENT: 1. RIGHT LOWER EXTREMITY CELLULITIS 2. CHRONIC LEG EDEMA 3. RIGHT KNEE PAIN SP FALL 4. HYPERTENSION NOW CONTROLLED 5. COPD PLAN: 1. Bactroban to superficial abrasions 2. Continue IV Rocephin 3. Keep legs elevated 4. Low salt diet Plan and coordination of the patient's care discussed in the presence of Associate Product Integrity Engineer and nurse. CONDITION: Stable SCRIBED BY: DIANA DIXON Financial Planning Consultant scribed while in presence of service performed by Dr. De La Paz/Charo Collins APRN on 07/13/17 ([id number])
[2017-07-13] MEDS: MS CONTIN PO SCH ×2 (13:01→21:07)
[2017-07-13] MEDS: LIPITOR PO SCH (21:04)
[2017-07-13] MEDS: AMBIEN PO SCH (21:06)
[2017-07-13] MEDS: DESYREL PO SCH (21:07)
[2017-07-13] MEDS: PAMELOR PO SCH (21:08)
[2017-07-14] MEDS: PRILOSEC PO SCH (05:41)
[2017-07-14] MEDS: LASIX TAB PO SCH (05:42)
[2017-07-14] MEDS: OXYCODONE PO PRN ×2 (06:44→19:45)
[2017-07-14] MEDS: PLAVIX PO SCH (08:35)
[2017-07-14] MEDS ORDERED: TORADOL IVP PRN (08:35)
[2017-07-14] MEDS: CATAPRES PO SCH ×2 (08:35→21:49)
[2017-07-14] MEDS: LOPRESSOR PO SCH ×2 (08:35→21:49)
[2017-07-14] MEDS: K-DUR PO SCH (08:35)
[2017-07-14] MEDS: MS CONTIN PO SCH ×2 (08:36→21:39)
[2017-07-14] MEDS: ASPIRIN EC PO SCH (08:36)
[2017-07-14] MEDS: ALDACTONE PO SCH (08:36)
[2017-07-14] MEDS: LEXAPRO PO SCH (08:36)
[2017-07-14] MEDS: XANAX PO SCH ×2 (08:36→21:49)
[2017-07-14] MEDS: NORVASC PO SCH (08:36)
[2017-07-14] MEDS: BACTROBAN TP SCH ×2 (08:37→21:56)
[2017-07-14] MEDS: ROCEPHIN 1 GM in SODIUM CHLORIDE 50 ML IV SCH (08:37)
--- NOTE | 2017-07-14 08:42 | PCM.PROG ---
Attending Provider: ATTENDING PROVIDER: Dr. CARLOS DE LA PAZ This patient is seen with Charo Collins, Nurse Practitioner. DATE OF SERVICE: 07/14/17 SUBJECTIVE: This 57 year old WHITE/ M was hospitalized 07/12/17. The patient is lying in bed, alert. Right knee is still swollen, painful, hurts to stand up. X-ray showed joint effusion, knee is still swollen. Will do CT of right knee today without as well as venous scan right lower extremity. REVIEW OF SYSTEMS: CONSTITUTIONAL: No night sweats. No fatigue, malaise, lethargy. No fever or chills. HEENT: Eyes: No visual changes. No eye pain. No eye discharge. ENT: No runny nose. No epistaxis. No sinus pain. No odynophagia. No congestion. RESPIRATORY: No cough, no congestion. No hemoptysis. No shortness of breath. CARDIOVASCULAR: No angina symptoms. No CHF symptoms. No atypical chest pain for CAD. No palpitations. No orthopnea.. GASTROINTESTINAL: No abdominal pain. No nausea or vomiting. No diarrhea or constipation. No hematemesis. No hematochezia. GENITOURINARY: No urgency. No frequency. No dysuria. No hematuria. No obstructive symptoms. No discharge. No pain. No significant abnormal bleeding. MUSCULOSKELETAL: Right leg edema, right knee pain. NEUROLOGICAL: Awake, alert, oriented to time, place and person. No headache. No neck pain. No syncope. No seizures. No dizziness. PSYCHIATRIC: Not anxious. No depression. No suicidal thoughts. No homicidal thoughts. SKIN: No rash. No lesions. No wounds. ENDOCRINE: No unexplained weight loss. No weight gain. HEMATOLOGIC/LYMPHATIC: No anemia. No purpura. No petechiae. No prolonged or excessive bleeding. No palpable lymph nodes. PHYSICAL EXAMINATION: GENERAL: The patient is awake, alert and oriented, lying in bed in no distress. VITAL SIGNS: Temperature 98.0 F, Pulse 56, Respiratory Rate 18, BP 130/68, Pulse Ox 92% HEENT: Head normocephalic, atraumatic. Eyes: Extraocular muscles are intact. Pupils are equal, round and reactive to light and accommodation. Ears: No lesions. Nose appeared normal. Throat: No exudate or erythema. NECK: Supple. No JVD, no carotid bruit. No lymphadenopathy or thyromegaly. LUNGS: Diminished breath sounds. Clear to auscultation. Percussion note normal. Chest symmetrical. HEART: S1, S2, no S3. No murmurs. No cyanosis or clubbing. No ascites. Pulses: Dorsalis pedis and posterior tibial pulses +1 to +2 both sides. ABDOMEN: Soft. Non-tender. Bowel sounds active. No CVA tenderness. No mass felt. EXTREMITIES: Trace edema right lower extremity with improving erythema. Right knee swollen with bruising. Full range of motion of all extremities, equal. NEUROLOGIC: No focal deficit. Cranial nerves II through XII are grossly intact. No headache, no double vision or headache. SKIN: Not dry. Intact. Turgor-normal. LYMPHATIC: No palpable lymph nodes/no lymphedema. MUSCULOSKELETAL: Normal joints with no swelling. Muscle tone is normal. LAB REVIEW: 07/14/17 04:15 07/14/17 04:15 07/14/17 04:15: Sodium 140, Potassium 3.5, Chloride 99, Carbon Dioxide 32, Anion Gap 12.5, BUN 17, Creatinine 1.43 H, Estimated GFR (MDRD) 51.00, BUN/ Creatinine Ratio 11.88, Glucose 100, Calcium 9.1, Total Bilirubin 0.7, AST 14 L , ALT 10 L, Alkaline Phosphatase 110, Total Protein 6.6, Albumin 2.9 L, Globulin 3.7, Albumin/Globulin Ratio 0.78 07/14/17 04:15: WBC 11.52 H, RBC 5.01, Hgb 13.7 L, Hct 42.6, MCV 85.0, MCH 27.3 , MCHC 32.2, RDW Coeff of Lety 14.9 H, Plt Count 171, Immature Gran % (Auto) 0.3 , Neut % (Auto) 63.9, Lymph % (Auto) 25.8, [place] % (Auto) 6.8, Eos % (Auto) 2.5, Baso % (Auto) 0.7, Immature Gran # (Auto) 0.0, Neut # (Auto) 7.4 H, Lymph # ( Auto) 3.0, Iron # (Auto) 0.8, Eos # (Auto) 0.3, Baso # (Auto) 0.1 ASSESSMENT: 1. RIGHT LOWER EXTREMITY CELLULITIS 2. CHRONIC LEG EDEMA 3. RIGHT KNEE PAIN SP FALL 4. HYPERTENSION NOW CONTROLLED 5. COPD PLAN: 1. CT of right knee without contrast 2. Venous scan of right lower extremity 3. No Zaroxolyn today 4. D/C Morphine 5. Toradol 30 mg IV q.p.r.n. Plan and coordination of the patient's care discussed in the presence of Underlay Stitcher and nurse. CONDITION: STABLE SCRIBED BY: DIANA DIXON Protective Signal Installer scribed while in presence of service performed by Dr. De La Paz/Charo Collins APRN on 07/14/17 ([id number])
--- NOTE | 2017-07-14 09:57 | US ---
EXAM: Right lower extremity venous Doppler HISTORY: Concern for DVT with lower extremity pain and tenderness. COMPARISON: Same day CT right knee TECHNIQUE: Sonographic and Doppler evaluation of the right lower extremity vessels from the common f emoral through the anterior tibial veins were obtained. Augmentation and compression techniques were also performed. FINDINGS: There is spontaneous Doppler flow seen in the right lower extremity veins from the common femoral through the anterior tibial veins. There is normal compression and augmentation throughout t he lower extremity veins. There is no visualized reflux. Sonographic appearance of the soft tissues are unremarkable. IMPRESSION: No right lower extremity thrombus
--- NOTE | 2017-07-14 10:07 | CT ---
EXAM: CT right knee without contrast. HISTORY: Subsequent presentation for right knee trauma with bruising, pain and edema. COMPARISON: Radiograph 07/12/2017. TECHNIQUE: Multiple axial images of the right knee were obtained without intravenous contrast. Imag es were reformatted in the sagittal and coronal planes. FINDINGS: The bones are demineralized. No fracture dislocation detected. There is moderate medial compartment joint space narrowing. Subchondral sclerosis, subchondral cyst and marginal osteophyte f ormation seen in all three knee joint compartments. Mild patellar enthesopathy noted. No erosions a re seen. Small joint effusion is present. There is high-density fluid in the subcutaneous tissues a nterior to the patellar tendon. IMPRESSION: 1. No fracture or dislocation. 2. Prepatellar hematoma. 3. Moderate osteoarthritis and joint effusion.
--- NOTE | 2017-07-14 14:47 | PN ---
DATE OF SERVICE: 07/13/17 SUBJECTIVE: The patient's blood pressure is much better than yesterday. The patient is going to be on Norvasc 10mg a day. His leg edema has practically resolved with puckering of the skin. Cellulitis/hyperpigmentation from chronic edema on the right leg is much better. His cardiovascular status is stable with no evidence of CHF. The patient is noncompliant, he doesn't take his medication on regular basis. Smokes and eats a lot and eats a lot salt and doesn't follow the instructions. CONDITION: Stable The patient was seen and examined with Nurse Practitioner. TIME SPENT: More than 30 minutes. Plan and coordination of the patient's care discussed in the presence of nurse. REENA
[2017-07-14] MEDS: AMBIEN PO SCH (21:39)
[2017-07-14] MEDS: DESYREL PO SCH (21:49)
[2017-07-14] MEDS: LIPITOR PO SCH (21:49)
[2017-07-14] MEDS: PAMELOR PO SCH (21:50)
[2017-07-15] MEDS: PRILOSEC PO SCH (05:42)
[2017-07-15] MEDS: LASIX TAB PO SCH (05:42)
[2017-07-15] MEDS: ROCEPHIN 1 GM in SODIUM CHLORIDE 50 ML IV SCH (08:05)
[2017-07-15] MEDS: ASPIRIN EC PO SCH (08:06)
[2017-07-15] MEDS: XANAX PO SCH (08:06)
[2017-07-15] MEDS: CATAPRES PO SCH (08:06)
[2017-07-15] MEDS: NORVASC PO SCH (08:06)
[2017-07-15] MEDS: LEXAPRO PO SCH (08:06)
[2017-07-15] MEDS: K-DUR PO SCH (08:07)
[2017-07-15] MEDS: ALDACTONE PO SCH (08:07)
[2017-07-15] MEDS: LOPRESSOR PO SCH (08:07)
[2017-07-15] MEDS: MS CONTIN PO SCH (08:07)
[2017-07-15] MEDS: PLAVIX PO SCH (08:07)
[2017-07-15] MEDS: BACTROBAN TP SCH (08:16)
[2017-07-15] MEDS ORDERED: SODIUM CHLORIDE 1,000 ML IV SCH (08:30)
[2017-07-15] MEDS ORDERED: DECADRON 4 MG/ML SDV IM STA (09:29)
--- NOTE | 2017-07-15 10:23 | CM.DICTOOL ---
ADMISSION: 07/12/17 15:24 DISCHARGE: 07/15/17 FINAL DIAGNOSIS CELLULITIS, RLE - IMPROVING RIGHT KNEE PAIN RECENT FALL HYPERTENSION CAD TIA ANXIETY OSTEOARTHRITIS DDD RUPTURED DISK MIGRAINES CKD, STAGE 2 COPD HEART CATH RENAL ARTERY STENT, 2006 CHOLECYSTECTOMY, 2003 BACK SURGERY, 1999 LAST VITALS Temp Pulse Resp BP Pulse Ox 97.6 F 41 L 20 106/72 92 L 07/15/17 06:00 07/15/17 06:00 07/15/17 06:00 07/15/17 06:00 07/15/17 06:00 CONTINUE THESE MEDICATIONS AT HOME Acetaminophen (Tylenol) 650 mg PO Q4H PRN PRN Reason: Headache Alprazolam (Xanax) 0.5 mg PO BID [facility] Last Admin: 07/15/17 08:06 Dose: 0.5 mg Amlodipine Besylate (Norvasc) 5 mg PO DAILY [facility] Last Admin: 07/15/17 08:06 Dose: 5 mg Aspirin (Aspirin Ec) 81 mg PO DAILYWM [facility] Last Admin: 07/15/17 08:06 Dose: 81 mg Atorvastatin Calcium (Lipitor) 80 mg PO BEDTIME [facility] Last Admin: 07/14/17 21:49 Dose: 80 mg Clonidine (Catapres) 0.3 mg PO BID [facility] Last Admin: 07/15/17 08:06 Dose: 0.3 mg Clopidogrel Bisulfate (Plavix) 75 mg PO DAILY [facility] Last Admin: 07/15/17 08:07 Dose: 75 mg Cyanocobalamin (Vitamin B-12) 1,000 mcg IM MONTHLY [facility] Escitalopram Oxalate (Lexapro) 20 mg PO DAILY [facility] Last Admin: 07/15/17 08:06 Dose: 20 mg Furosemide (Lasix Tab) 40 mg PO QDAC [facility] Last Admin: 07/15/17 05:42 Dose: 40 mg Metolazone (Zaroxolyn) 2.5 mg PO 3 TIMES PER WEEK PRN PRN Reason: Swelling Metoprolol Tartrate (Lopressor) 100 mg PO BID [facility] Last Admin: 07/15/17 08:07 Dose: 100 mg Morphine Sulfate (Ms Contin) 60 mg PO Q12HR [facility] Last Admin: 07/15/17 08:07 Dose: 60 mg Mupirocin (Bactroban) 1 applic TP BID [facility] Last Admin: 07/15/17 08:16 Dose: 1 applic Nortriptyline HCl (Pamelor) 50 mg PO BEDTIME [facility] Last Admin: 07/14/17 21:50 Dose: 50 mg PROTONIX 20 mg PO QDAC [facility] Last Admin: 07/15/17 05:42 Dose: 20 mg Oxycodone HCl (Oxycodone) 60 mg PO Q8HR PRN PRN Reason: PAIN Last Admin: 07/14/17 19:45 Dose: 60 mg Potassium Chloride (K-Dur) 20 meq PO DAILYWM [facility] Last Admin: 07/15/17 08:07 Dose: 20 meq Spironolactone (Aldactone) 25 mg PO DAILY [facility] Last Admin: 07/15/17 08:07 Dose: 25 mg Trazodone HCl (Desyrel) 150 mg PO BEDTIME [facility] Last Admin: 07/14/17 21:49 Dose: 150 mg Zolpidem Tartrate (Ambien) 10 mg PO BEDTIME [facility] Last Admin: 07/14/17 21:39 Dose: 10 mg KEFLEX 500MG PO TID DISCONTINUED MEDICATIONS: NONE ALLERGIES lisinopril [From Zestril] Adverse Reaction (Severe, Verified 05/20/16 11:04) Swelling baclofen Adverse Reaction (Verified 05/20/16 10:57) Unknown LAB REVIEW: 07/15/17 04:30 07/15/17 04:30 07/15/17 04:30: Sodium 134 L, Potassium 3.5, Chloride 93 L, Carbon Dioxide 31, Anion Gap 13.5, BUN 25 H, Creatinine 1.99 H D, Estimated GFR (MDRD) 35.00, BUN/ Creatinine Ratio 12.56, Glucose 94, Calcium 8.7, Total Bilirubin 0.7, AST 13 L, ALT 9 L, Alkaline Phosphatase 98, Total Protein 6.3 L, Albumin 2.8 L, Globulin 3.5, Albumin/Globulin Ratio 0.80 07/15/17 04:30: WBC 10.74 H, RBC 4.70, Hgb 12.8 L, Hct 40.3 L, MCV 85.7, MCH 27.2, MCHC 31.8, RDW Coeff of Lety 14.8, Plt Count 179, Immature Gran % (Auto) 0.3, Neut % (Auto) 58.1, Lymph % (Auto) 28.8, [place] % (Auto) 8.9, Eos % (Auto) 3.3, Baso % (Auto) 0.6, Immature Gran # (Auto) 0.0, Neut # (Auto) 6.3, Lymph # ( Auto) 3.1, [place] # (Auto) 1.0, Eos # (Auto) 0.4, Baso # (Auto) 0.1 PLAN: DISCHARGE TO HOME TODAY 07/15/17. CONTINUE HOME MEDICATIONS PER NURSING SHEETS. NEW MEDICATION: 1. KEFLEX 500MG TAKE 1 CAPSULE 3 TIMES A DAY FOR 7 DAYS. TAKE UNTIL ALL GONE. 2. BACTROBAN OINTMENT TO ABRASIONS BID DIET: TOLERATED - INCREASE YOUR FLUID INTAKE. ACTIVITY: KEEP RIGHT LEG ELEVATED MUCH POSSIBLE. GRADUALLY INCREASE YOUR ACTIVITY PER TOLERATED. USE ICE PACK TO RIGHT KNEE FOR PAIN AND SWELLING. FOLLOW UP WITH DR. DE LA PAZ NEXT WEEK ON WednesdayJune AT 145PM. CALL IF UNABLE TO KEEP APPOINTMENT. [phone]. PATIENT IS A FULL CODE. SITTING UP IN BED. ALERT AND ORIENTED X 4. STATES FEELING BETTER. João GONZALES APRN INTO SEE PATIENT. PLAN OF CARE DISCUSSED PER João HERRERA APRN INCLUDING DISCHARGE THIS AFTERNOON, ABX THERAPY, ABRASION CARE, FLUID INTAKE, ELEVATE EXTREMITIES AND ICE PACK TO RIGHT KNEE NEEDED. PATIENT VERBALIZES UNDERSTANDING AND AGREEMENT. APPETITE IS GOOD. VITAL SIGNS ARE STABLE. HAS BEEN AFEBRILE. POX 92% ON O2 AT 2L/C. HEART TONES ARE REGULAR WITH TELEMETRY REVEALING SINUS AHSAN WITH FIRST DEGREE AVB. NO C/O PAIN OR DISCOMFORT. LUNGS ARE CLEAR WITH DIMINISHED BREATH SOUNDS. NO COUGH OR DYSPNEA NOTED. ABDOMEN IS SOFT, NON-TENDER WITH BOWEL SOUNDS POSITIVE IN ALL 4 QUADS. PEDAL PULSES ARE POSITIVE WITHOUT EDEMA. RIGHT KNEE AND LOWER EXTREMITY HAS NON-PITTING EDEMA. ABRASIONS TO RIGHT KNEE. HAS SALINE LOCK IN LEFT WRIST SITE IS CLEAR. RIGHT KNEE AND RIGHT LOWER EXREMITY WITH NON-PITTING EDEMA WHICH HAS IMPROVED. REDNESS TO RIGHT LOWER EXTREMITY MUCH IMPROVED. BRUISING NOTED TO RIGHT KNEE. RIGHT KNEE CONTINUES TO BE PAINFUL TO TOUCH AND MOVEMENT. TO CONTINUE WITH BACTRON TO ABRASIONS. CARLOS DE LA PAZ MD João GONZALES APRN
[2017-07-15 13:25] VITALS: BP 101/48; TEMP 98.1
--- NOTE | 2017-07-15 14:10 | DI ---
Exam: Right foot three-view History: Fall with pain Findings / impression: No acute bony or articular abnormalities are seen. Minor hallux bunion forma tion. Spurring on the plantar surface of the calcaneus measures 1.1 cm. Spurring on the Achilles buck rface measures 0.8 cm. Midfoot osteoarthritic change is present.
--- NOTE | 2017-07-15 14:11 | DI ---
EXAM: Lumbar spine radiographs. HISTORY: Initial presentation for back trauma due to a fall. COMPARISON: None available. TECHNIQUE: 5 views of the lumbar spine. FINDINGS: Mild left convex curvature centered in the upper lumbar spine noted. There is approximate ly 0.3 cm retrolisthesis of L2 on L3. Alignment is otherwise normal. Vertebral body heights are tony ntained without fracture. There is moderate loss of disc height throughout the lumbar spine with ass ociated endplate osteophyte formation. Multilevel facet arthropathy is at least moderate in degree. Large amount of stool noted in the colon. Atherosclerotic calcifications present. Renal artery emmanuel nt noted. Cholecystectomy clips are present. IMPRESSION: No acute fracture.
--- NOTE | 2017-07-15 14:11 | DI ---
Exam: Three x-rays of the right ankle. Comparison: 12/15/2014 Reason for exam: Fall. FINDINGS: Osseous lucencies are seen in the distal fibula that do not appear significantly changed w hen compared to previous imaging. The talar dome is intact. There is no abnormal widening of the me dial or lateral clear space. Degenerative disease is seen with calcaneal enthesiophytes Impression: No acute fracture is seen within the right ankle. Lucencies in the distal fibula do not appear signif icantly changed when compared to the previous exam.
--- NOTE | 2017-07-15 15:15 | PN ---
DATE OF SERVICE: 07/15/17 SUBJECTIVE: The patient was examined while laying in bed. He had CT scan of the right knee as well as venous scan yesterday, both were negative. CT scan showed small joint effusion with large hematoma. His leg edema has significantly improved as well as the erythema of the right lower extremity. He has been afebrile. REVIEW OF SYSTEMS: CONSTITUTIONAL: No night sweats. No fatigue, malaise, lethargy. No fever or chills. HEENT: Eyes: No visual changes. No eye pain. No eye discharge. ENT: No runny nose. No epistaxis. No sinus pain. No sore throat. No odynophagia. No congestion. RESPIRATORY: No cough, no congestion. No hemoptysis. No shortness of breath. CARDIOVASCULAR: No angina symptoms. No CHF symptoms. No atypical chest pain for CAD. No palpitations. No orthopnea. GASTROINTESTINAL: No abdominal pain. No nausea or vomiting. No diarrhea or constipation. No hematemesis. No hematochezia. GENITOURINARY: No urgency. No frequency. No dysuria. No hematuria. No obstructive symptoms. No discharge. No pain. No significant abnormal bleeding. MUSCULOSKELETAL: No musculoskeletal pain; no joint swelling. Right knee pain. NEUROLOGICAL: No headache. No neck pain. No syncope. No seizures. No dizziness. PSYCHIATRIC: Not anxious. No depression. No suicidal thoughts. No homicidal thoughts. SKIN: No rash. No lesions. No wounds. Improving leg edema. ENDOCRINE: No unexplained weight loss. No weight gain. HEMATOLOGIC/LYMPHATIC: No anemia. No purpura. No petechiae. No prolonged or excessive bleeding. No palpable lymph nodes. PHYSICAL EXAMINATION: HEENT: Head normocephalic, atraumatic. Eyes: Extraocular muscles are intact. Pupils are equal, round and reactive to light and accommodation. Ears: No lesions. Nose appeared normal. Throat: No exudate or erythema. NECK: Supple. No JVD, no carotid bruit. No lymphadenopathy or thyromegaly. LUNGS: Diminished breath sounds. Clear to auscultation. Percussion note normal. Chest symmetrical. HEART: S1, S2, no S3. No murmurs. No cyanosis or clubbing. No ascites. Pulses: Dorsalis pedis and posterior tibial pulses +1 to +2 both sides. ABDOMEN: Soft. Nontender. Bowel sounds active. No CVA tenderness. No mass felt. EXTREMITIES: Right lower extremity with trace edema. Full range of motion of all extremities, equal. Faint improve erythema. Trace edema left lower extremity. NEUROLOGIC: No focal deficit. Cranial nerves II through XII are grossly intact. No headache, no double vision or headache. SKIN: Not dry. Intact. Turgor - normal. Bruising noted to the anterior aspect of right knee with superficial scraps on bilateral knees. No signs of infection and no drainage. LYMPHATIC: No palpable lymph nodes/no lymphedema. MUSCULOSKELETAL: Normal joints with no swelling. Muscle tone is normal. ASSESSMENT: 1. Cellulitis of the right lower extremity, improving 2. Hypertension 3. Leg edema improving 4. Chronic kidney disease PLAN: 1. Patient's kidney function likely elevated to proper administration of diuretic as he has a history of noncompliance at home. 2. His normal baseline creatinine is about 1.7 to 1.8 he is 1.9 today. We will do normal saline at 100cc an hour until he goes home for the 3-4 hours. 3. 1cc Decadron for inflammation 4. Discharge him home on Keflex 500mg three times a day for the next 7 days 5. He is instructed to keep his legs elevated 6. Increase fluids 7. We will followup with him early next week. TIME SPENT: More than 30 minutes. Plan and coordination of the patient's care discussed in the presence of nurse. REENA
--- NOTE | 2017-07-15 15:38 | DS ---
DATE OF SERVICE: 07/15/17 FINAL DIAGNOSIS: 1. Cellulitis, right lower extremity, improving 2. Right knee pain 3. Recent fall 4. Hypertension 5. CAD 6. TIA 7. Anxiety 8. Osteoarthritis 9. DDD 10.Ruptured disk 11.Migraines 12.Chronic kidney disease stage 2 13.COPD 14.Heart cath 15.Renal artery stent, 2006 16.Cholecystectomy 2003 17.Back surgery 1999 LAST VITALS: Temperature 97.6, pulse 41, respiratory rate 20, blood pressure 106/72 and pulse ox 92%. DISCHARGE INSTRUCTIONS: Discharge home today 07/15/17. Continue home mediation per nursing sheets. Use ice pack to right knee for pain and swelling. Followup with Dr. Love next week on July 29 at 1:45pm. Patient is full code MEDICATIONS AT DISCHARGE: Tylenol 650mg PO Q 4 hours PRN Xanax 0.5mg PO twice a day Norvasc 5mg PO daily Aspirin 81mg PO daily Lipitor 80mg PO bedtime Catapres 0.3mg PO twice a day Plavix 75mg PO daily Vitamin B12 1000mcg IM monthly Lexapro 20mg Po daily Lasix 40mg PO QDAC Zaroxolyn 2.5mg PO three times per week PRN Lopressor 100mg PO twice a day MS Contin 60mg PO Q 12 hours Bactroban 1 application TP twice a day Pamelor 50mg PO bedtime Protonix 20mg PO QDAC Oxycodone 60mg PO Q 8 hours PRN K-Dur 20meq PO daily Aldactone 25mg PO daily Desyrel 150mg PO bedtime Ambien 10mg PO bedtime ALLERGIES: Lisinopril Baclofen NEW PRESCRIPTIONS: Keflex 500mg PO three times a day DIET INSTRUCTIONS: As tolerated- Increase fluid intake ACTIVITY: Keep right leg elevated as much as possible. Gradually increase activity per tolerated. SMOKING: Current everyday smoker. Counseling for smoking done. DISEASE SPECIFIC EDUCATION: New Medications Appointment Elevate leg Fluid intake HOSPITAL COURSE: This is a 57 year old white male who presented to our office in hypertension emergency with a blood pressure of 220/104. He stated that he had fallen two day prior and had worsening leg edema especially on the right with severe right knee pain, redness of the right lower extremity. He has some scraps and bruises noted. His temperature was 99 in our office. He was directly admitted from our office to acute care and started on Rocephin 1 gram IV daily. Given Lasix 40mg IV now. Given Vasotec 1.25mg IV initially which brought his blood pressure down. Today since admission his blood pressure has controlled. After the Vasotec today is 106/72. He does have a history of chronic lung disease. He is a heavy smoker, wears oxygen at night at home. He has been wearing oxygen at night here. The redness in his right lower extremity has significant improved with administration of Rocephin. On the second day we started applying Bactroban to the superficial scraps on his knees and legs. Due to his history of blood clots he is on Coumadin which has been therapy since his admission. We did do a venous scan of the right lower extremity which was negative as well as a CT scan of the right knee because it was extremely swollen with visible effusion and bruising which showed joint effusion and hematoma. Again his blood pressure has been controlled. He does have a history of noncompliance with diet and lifestyle. His pain has been controlled with his normal pain medications along with Toradol 30mg IV PRN which he has used only a few times. He is on daily diuretics at home, Lasix 40mg and Aldactone 25mg. He does get Zaroxolyn three times per week. He has not had to have Zaroxolyn while he was here. Today on day of discharge the erythema is significantly improved and he has trace bilateral leg edema. His kidney function is slightly elevated which he does have chronically however we will given him IV fluids about 500cc before he is discharged. Labs are otherwise stable. WBC 10.7, hgb 12.8, hct 40.3, sodium 134 , potassium 3.5. Temperature 97.6, heart rate 50, respiratory rate 20, blood pressure 106/72 and pulse ox 92%. He will be discharged home on Keflex 500mg twice a day for the 7 days and 1cc Decadron prior to discharge. He is instructed to keep his legs elevated and we will followup with him next week. TIME SPENT: More than 60 minutes. REENA
--- NOTE | 2017-07-16 07:56 | DI ---
EXAM: Radiographs, pelvis and bilateral hip HISTORY: Initial presentation for pelvic and hip trauma due to a fall. COMPARISON: Pelvic CT 05/18/2015. TECHNIQUE: Three views. FINDINGS: Image quality is degraded by patients body habitus, limiting evaluation for subtle finding s. Bone mineralization is normal. There is no fracture or dislocation. Moderate osteoarthritis of the hips noted. No focal soft tissue abnormality is seen. IMPRESSION: No fracture or dislocation.
[2017-07-26] MEDS ORDERED: VITAMIN B-12 IM SCH (09:00)
== END 2017-07-15 17:38 | disposition home or self-care (01) ==
LOC: INTOOBSV 15:24 → UNDOADMIN 15:24 → MEDSURG A 15:24
PROVIDERS: ADMIT Internal Medicine; ATTEND Internal Medicine
DX: L03.115 Cellulitis of right lower limb (principal); S80.211A Abrasion, right knee, initial encounter; M25.461 Effusion, right knee; I10 Essential (primary) hypertension; I25.10 Atherosclerotic heart disease of native coronary artery without angina pectoris; N18.2 Chronic kidney disease, stage 2 (mild); J44.9 Chronic obstructive pulmonary disease, unspecified; F41.9 Anxiety disorder, unspecified; G43.909 Migraine, unspecified, not intractable, without status migrainosus; I12.9 Hypertensive chronic kidney disease with stage 1 through stage 4 chronic kidney disease, or unspecified chronic kidney disease; M19.90 Unspecified osteoarthritis, unspecified site; F17.210 Nicotine dependence, cigarettes, uncomplicated; W19.XXXA Unspecified fall, initial encounter; Z79.02 Long term (current) use of antithrombotics/antiplatelets; Z79.899 Other long term (current) drug therapy; Z86.73 Personal history of transient ischemic attack (TIA), and cerebral infarction without residual deficits; Z98.61 Coronary angioplasty status; Z95.828 Presence of other vascular implants and grafts; Z91.14 Patient's other noncompliance with medication regimen
CPT/HCPCS: 36415; 80053; 81001; 82550; 82553; 84484; 85025; 93005; 93010

== ENCOUNTER 2018-09-05 16:05 | Inpatient (IN) ==
[2018-09-05] MEDS ORDERED: TYLENOL PO PRN (16:38)
[2018-09-05] MEDS ORDERED: VISTARIL INJ IM PRN (16:38)
[2018-09-05] MEDS ORDERED: NITROSTAT SL PRN (16:38)
[2018-09-05] MEDS ORDERED: ATROPINE SULFATE PFS IVP PRN (16:38)
[2018-09-05] MEDS ORDERED: ZAROXOLYN PO PRN (16:48)
[2018-09-05] MEDS ORDERED: NON-FORMULARY MEDICATION (Nitroglycerin [Nitrostat] 0.3 MG) SL PRN (16:48)
[2018-09-05] MEDS ORDERED: VITAMIN B-12 IM SCH (17:00)
[2018-09-05] MEDS ORDERED: OXYCODONE HCL 60 MG PO SCH (17:00)
[2018-09-05] MEDS: ROCEPHIN 1 GM/50 ML D5W 1 GM in PREMIX 50 ML D5W 1 BAG IV SCH (18:13)
[2018-09-05] MEDS: LASIX IVP SCH (18:13)
[2018-09-05] MEDS: XANAX PO SCH (20:43)
[2018-09-05] MEDS: DESYREL PO SCH (20:43)
[2018-09-05] MEDS: AMBIEN PO SCH (20:45)
[2018-09-05] MEDS: OXYCODONE PO SCH (20:46)
[2018-09-05] MEDS: PAMELOR PO SCH (20:47)
[2018-09-05] MEDS: MS CONTIN PO SCH (20:55)
[2018-09-05] MEDS ORDERED: NON-FORMULARY MEDICATION (Zolpidem Tartrate [Ambien] 10 MG) PO SCH (21:00)
[2018-09-05] MEDS ORDERED: NON-FORMULARY MEDICATION (Clonidine Hcl [Clonidine Hcl] 0.3 MG) PO SCH (21:00)
[2018-09-05] MEDS ORDERED: NORTRIPTYLINE HCL 50 MG PO SCH (21:00)
[2018-09-05] MEDS ORDERED: LOPRESSOR PO SCH (21:00)
[2018-09-05] MEDS ORDERED: NON-FORMULARY MEDICATION (Metoprolol Tartrate [Lopressor] 100 MG) PO SCH (21:00)
[2018-09-05] MEDS ORDERED: TRAZODONE HCL 150 MG PO SCH (21:00)
[2018-09-05] MEDS ORDERED: CATAPRES PO SCH (21:00)
[2018-09-05] MEDS ORDERED: MORPHINE SULFATE 60 MG PO SCH (21:00)
[2018-09-06] MEDS: OXYCODONE PO SCH ×3 (05:50→20:50)
[2018-09-06] MEDS: LASIX IVP SCH (05:51)
[2018-09-06] MEDS: PROTONIX PO SCH (05:51)
--- NOTE | 2018-09-06 07:26 | DI ---
EXAM: Chest two views HISTORY: Shortness of air COMPARISON: 07/12/2017 TECHNIQUE: Two views of the chest were performed FINDINGS: No airspace consolidation. Granulomatous calcification. There is no pleural effusion or pneumothorax. The heart is normal in size. The mediastinal contour is normal. There are no acute a bnormalities of the bones. IMPRESSION: No acute cardiopulmonary process.
[2018-09-06] MEDS ORDERED: LOPRESSOR PO SCH (09:00)
[2018-09-06] MEDS ORDERED: NON-FORMULARY MEDICATION (Atorvastatin Calcium [Lipitor] 80 MG) PO SCH (09:00)
[2018-09-06] MEDS ORDERED: PANTOPRAZOLE SODIUM 20 MG PO SCH (09:00)
[2018-09-06] MEDS: ROCEPHIN 1 GM/50 ML D5W 1 GM in PREMIX 50 ML D5W 1 BAG IV SCH (09:22)
[2018-09-06] MEDS: ALDACTONE PO SCH (09:26)
[2018-09-06] MEDS: ASPIRIN EC PO SCH (09:27)
[2018-09-06] MEDS: CATAPRES PO SCH ×2 (09:27→20:56)
[2018-09-06] MEDS: K-DUR PO SCH (09:28)
[2018-09-06] MEDS: LEXAPRO PO SCH (09:29)
[2018-09-06] MEDS: LIPITOR PO SCH (09:30)
[2018-09-06] MEDS: LOPRESSOR PO SCH ×4 (09:30→20:57)
[2018-09-06] MEDS: MS CONTIN PO SCH ×2 (09:31→20:58)
[2018-09-06] MEDS: XANAX PO SCH ×2 (09:32→20:48)
[2018-09-06] MEDS: PLAVIX PO SCH (09:32)
--- NOTE | 2018-09-06 11:48 | PN ---
DATE OF SERVICE: 09/06/18 SUBJECTIVE: 58-year-old white male hospitalized with possible cellulitis of the left leg with bilateral leg edema +2 to +3. Today he is feeling a lot better. His leg edema is down to maybe +1 pitting with puckering of the skin. No evidence of cellulitis. The patient was explained that his legs when they swell is going to be red because of hemosiderin pigmentation. He has chronic leg edema. Advised to cut down on salt. Advised to lose weight. His BMI is 35. Advised to elevate the legs higher than the hip at night and during the daytime when he is sitting around. The patient's blood pressure is on the lower side, will decrease Clonidine to 0.2 twice a day. Cut down on Amlodipine. At the present time Amlodipine has been taken off. REVIEW OF SYSTEMS: CONSTITUTIONAL: No night sweats. No fatigue, malaise, lethargy. No fever or chills. HEENT: Eyes: No visual changes. No eye pain. No eye discharge. ENT: No runny nose. No epistaxis. No sinus pain. No sore throat. No odynophagia. No congestion. RESPIRATORY: No cough, no congestion. No hemoptysis. No shortness of breath. CARDIOVASCULAR: No angina symptoms. No CHF symptoms. No atypical chest pain for CAD. No palpitations. No PND. No orthopnea. GASTROINTESTINAL: No abdominal pain. No nausea or vomiting. No diarrhea or constipation. No hematemesis. No hematochezia. GENITOURINARY: No urgency. No frequency. No dysuria. No hematuria. No obstructive symptoms. No discharge. No pain. No significant abnormal bleeding. MUSCULOSKELETAL: No musculoskeletal pain; no joint swelling. NEUROLOGICAL: No headache. No neck pain. No syncope. No seizures. No dizziness. PSYCHIATRIC: Not anxious. No depression. No suicidal thoughts. No homicidal thoughts. SKIN: No rash. No lesions. No wounds. ENDOCRINE: No unexplained weight loss. No weight gain. HEMATOLOGIC/LYMPHATIC: No anemia. No purpura. No petechiae. No prolonged or excessive bleeding. No palpable lymph nodes. PHYSICAL EXAMINATION: VITAL SIGNS: Temperature 97.4, pulse 47, respiratory rate 20, blood pressure 105 /66, pulse ox 92%. HEENT: Head normocephalic, atraumatic. Eyes: Extraocular muscles are intact. Pupils are equal, round and reactive to light and accommodation. Ears: No lesions. Nose appeared normal. Throat: No exudate or erythema. NECK: Supple. No JVD, no carotid bruit. No lymphadenopathy or thyromegaly. LUNGS: Decreased lung sounds but clear to auscultation. Percussion note normal. Chest symmetrical. HEART: S1, S2, no S3. No murmurs. No cyanosis or clubbing. No ascites. Pulses: Dorsalis pedis and posterior tibial pulses +1 bilaterally. ABDOMEN: Soft. Nontender. Bowel sounds active. No CVA tenderness. No mass felt. EXTREMITIES: Pitting edema +1 to trace edema. Full range of motion of all extremities, equal. NEUROLOGIC: No focal deficit. Cranial nerves II through XII are grossly intact. No headache, no double vision or headache. SKIN: Not dry. Intact. Turgor - normal. LYMPHATIC: No palpable lymph nodes/no lymphedema. MUSCULOSKELETAL: Normal joints with no swelling. Muscle tone is normal. LABS: Hemoglobin 13, hematocrit 42, WBC 6,100, normal differential. Creatinine 0.7, BUN 14, potassium 3.0. ASSESSMENT: 1. BILATERAL LEG EDEMA. I DON'T THINK IT WAS CELLULITIS. RESOLVING. 2. NO EVIDENCE OF CHF. 3. HISTORY OF HYPERTENSION. 4. DYSLIPIDEMIA. 5. DEPRESSION. 6. SEVERE GENERALIZED OSTEOARTHRITIS. PLAN: 1. Continue IV Lasix. 2. Cut down on salt intake. 3. Decrease Clonidine to 0.2 twice a day. 4. The patient has sinus bradycardia noted, rate of 40. Will cut down the Lopressor to 75 mg twice a day. 5. The patient is noncompliant of lifestyle and medications. TIME SPENT: More than 30 minutes. PROGNOSIS: Poor Plan and coordination of the patient's care discussed in the presence of nurse. REENA
--- NOTE | 2018-09-06 12:02 | HP ---
DATE OF SERVICE: 09/05/18 HISTORY OF PRESENT ILLNESS: 58-year-old male whose neurologist is Dr. Fleming. He was recommended to see primary M.D. He is short of breath/no symptoms of CAD. Leg swelling times two weeks. PAST MEDICAL HISTORY: Hypertension VA CAD CKD COPD B12 deficiency anemia Migraines Dyslipidemia Chronic back pain Renal artery Stenosis with stent Depression Sleep apnea on CPAP PSA 12/10 (2.1), 09/13 (0.5), 03/19 (0.5) Dr. Nolasco follows PAST SURGICAL HISTORY: Back surgery - 1999 Renal artery stent 2000, 2002 and 2006 Gallbladder 2004 Hernia 2004 REVIEW OF SYSTEMS: CONSTITUTIONAL: Fatigue. No fever. HEENT: No sinus drainage, no sore throat. RESPIRATORY: No cough. No hemoptysis. CARDIOVASCULAR: Positive for shortness of breath. No atypical chest pain for coronary artery disease. No angina, CHF symptoms, palpitations. GASTROINTESTINAL: No melena or abdominal pain. No GERD. GENITOURINARY: No hematuria, no prostatism, no polyuria. BIRDCAGE ASSEMBLER: No blackout, no dizziness, no headache, no double vision. MUSCULOSKELETAL: Osteoarthritic pain. ENDOCRINE: No weight loss, no weight gain. SKIN: Not dry, no rash. PSYCHIATRIC: Not anxious, no depression, no suicidal thoughts, no homicidal thoughts. SOCIAL HISTORY: . Smoker - one pack per day times 25 years. No alcohol use. Three children. Disabled. FAMILY HISTORY: Father age 69, CVA, hypertension. Mother age 68 of [place]. Two brothers. Three sisters. MEDICATIONS: Lipitor 80 mg one daily Lopressor 100 mg one b.i.d. Lexapro 20 mg one daily Xanax 0.5 mg one b.i.d. Plavix 75 mg one daily Oxycodone 30 mg two pills q.8hr Trazodone 150 mg h.d. Morphine 60 mg one b.i.d. Ambien 10 mg one h.s. Pamelor 25 mg two at h.s. NTG p.r.n. Norvasc 5 mg one daily ASA 81 mg one daily Protonix 20 mg one daily Lasix 40 mg one daily B12 1000 mg IM monthly Zaroxolyn 2.5 mg 3/week Clonidine 0.3 mg b.i.d. Aldactone 25 mg one daily 02 p.r.n. K+ 20 mEq one daily ALLERGIES: BACLOFEN, ZESTRIL (ANGIOEDEMA 01/20/16) PHYSICAL EXAMINATION: V/S: Pulse 69, BP 134/80, 02 sat 95%. Weight 276.8. Height 6'1". BMI 36.5. GENERAL APPEARANCE: Oriented times three. HEENT: Normal. NECK: No JVP, no bruits. RESPIRATORY: Lungs - few creps, dry. CARDIOVASCULAR: S1, S2, no S3. I/ systolic murmur. No cyanosis, clubbing. No ascites. GI/ABDOMEN: No tenderness. Bowel sounds are active. EXTREMITIES: +2 to +3 pitting edema with fluid running on left. Pulses +1, equal. BIRDCAGE ASSEMBLER: Deep tendon reflexes, sensory, motor and gait all normal. RECTAL/PROSTATE: 03/19 (0.5) Colonoscopy screening [address] Dr. Shaver. Refused repeat. ASSESSMENT: 1. CELLULITIS OF LEFT LEG ? -EDEMA 2. HISTORY OF LEG EDEMA DEPENDENT, CHRONIC 3. HISTORY OF BRONCHITIS 4. NONCOMPLIANCE IN LIFESTYLE AND MEDICATIONS 5. HISTORY OF MULTIPLE STROKES, DR. FLEMING Q.3MONTHS 6. RENAL ARTERY STENTS 2006 7. SMOKING 8. CVA, DR. FLEMING 9. BRIAN 10. HYPERTENSION 11. DYSLIPIDEMIA 12. DEPRESSION 13. L-SPINE SURGERY 2000, DR. SANTOS PLAN: 1. Admit regular with telemetry orders. 2. D/C Amlodipine 3. D/C oral Lasix 4. ABG, Pro BNP, TSH 5. IV Lasix 40 mg now and q.a.m. 6. Daily weigh him correctly 7. Elevate legs 8. Echocardiogram to evaluate LV function 9. Rocephin 1 gm IV PB now and daily a.m. 10. Continue all medications by Dr. Fleming. TIME SPENT: More than 70 minutes. MTDD
--- NOTE | 2018-09-06 13:18 | ECHO2D ---
Date of Exam: 09/06/18 Ordering Physician: DR. CARLOS DE LA PAZ Room #: 120 Reason for Echo: EVALUATE LEFT VENTRICLE FUNCTION, HYPERTENSION M-Mode Normal Adult Results LV Dimensions Normal Adult Results AoV Opening excursions >1.6 >1.6 LVEDD-base- 3.5-5.8 4.5 Ao root dimensions 2.0-3.7 3.5 LVESD-base- 3.1-4.6 L. Atrium dimensions 1.9-3.8 5.6 Post. Wall thickness 0.8-1.1 1.3 IV septum (thickness) 0.7-1.2 1.3 Post. Wall excursion 0.72-1.3 NORMAL Septal motion NORMAL Systolic motion R. Ventricular cavity 1.5-2.0 NORMAL LVEF 60% 64% Paradoxical septal wall motion NORMAL 2-D : 2-D M Mode Echocardiogram was performed using apical four chamber and left parasternal long and short axis views. Mitral, tricuspid and aortic valves appear to be normal. Contractility of the left ventricle seems to be normal, so is the cavity size. Left atrial cavity size and aortic root appear to be normal. There is no pericardial effusion. There is no thrombus noted in the left ventricular or left aortic cavity. No mitral valve prolapse noted. COLOR FLOW: MILD MITRAL REGURGITATION M-MODE: MV: NORMAL AV: NORMAL TV: NORMAL PV: CHAMBER SIZE: ENLARGED LEFT ATRIAL CAVITY WALL MOTION: NORMAL PERICARDIUM: NORMAL INTERPRETATION: 1. LEFT VENTRICULAR HYPERTROPHY WITH ENLARGED LEFT ATRIAL CAVITY 2. NORMAL LEFT VENTRICLE CONTRACTILITY MTDD
[2018-09-06] MEDS: PAMELOR PO SCH (20:48)
[2018-09-06] MEDS: DESYREL PO SCH (20:53)
[2018-09-06] MEDS: AMBIEN PO SCH (20:57)
[2018-09-07] MEDS: OXYCODONE PO SCH ×3 (04:47→21:09)
[2018-09-07] MEDS: LASIX IVP SCH (05:31)
[2018-09-07] MEDS: PROTONIX PO SCH (05:31)
--- NOTE | 2018-09-07 08:31 | PCM.PROG ---
Attending Provider: ATTENDING PROVIDER: Dr. CARLOS DE LA PAZ DATE OF SERVICE: 09/07/18 SUBJECTIVE: This 58 year old WHITE/ M was hospitalized 09/05/18 with left leg cellulitis. The patient very likely didn't have cellulitis just chronic leg edema worsening for one reason or another. No symptoms of CHF. REVIEW OF SYSTEMS: CONSTITUTIONAL: No night sweats. No fatigue, malaise, lethargy. No fever or chills. HEENT: Eyes: No visual changes. No eye pain. No eye discharge. ENT: No runny nose. No epistaxis. No sinus pain. No odynophagia. No congestion. RESPIRATORY: No cough, no congestion. No hemoptysis. No shortness of breath. CARDIOVASCULAR: No angina symptoms. No CHF symptoms. No atypical chest pain for CAD. No palpitations. No orthopnea.. GASTROINTESTINAL: No abdominal pain. No nausea or vomiting. No diarrhea or constipation. No hematemesis. No hematochezia. GENITOURINARY: No urgency. No frequency. No dysuria. No hematuria. No obstructive symptoms. No discharge. No pain. No significant abnormal bleeding. MUSCULOSKELETAL: No musculoskeletal pain; no joint swelling. NEUROLOGICAL: Awake, alert, oriented to time, place and person. No headache. No neck pain. No syncope. No seizures. No dizziness. PSYCHIATRIC: Not anxious. No depression. No suicidal thoughts. No homicidal thoughts. SKIN: No rash. No lesions. No wounds. ENDOCRINE: No unexplained weight loss. No weight gain. HEMATOLOGIC/LYMPHATIC: No anemia. No purpura. No petechiae. No prolonged or excessive bleeding. No palpable lymph nodes. PHYSICAL EXAMINATION: GENERAL: The patient is awake, alert and oriented, lying/sitting in bed in no distress. VITAL SIGNS: Temperature 98.0 F, Pulse 56, Respiratory Rate 17, BP 139/80, Pulse Ox 91% HEENT: Head normocephalic, atraumatic. Eyes: Extraocular muscles are intact. Pupils are equal, round and reactive to light and accommodation. Ears: No lesions. Nose appeared normal. Throat: No exudate or erythema. NECK: Supple. No JVD, no carotid bruit. No lymphadenopathy or thyromegaly. LUNGS: Decreased breath sounds. Clear to auscultation. Percussion note normal. Chest symmetrical. HEART: S1, S2, no S3. No murmurs. No cyanosis or clubbing. No ascites. Pulses: Dorsalis pedis and posterior tibial pulses +1 to +2 both sides. ABDOMEN: Soft. Non-tender. Bowel sounds active. No CVA tenderness. No mass felt. EXTREMITIES: Practically no leg edema. Full range of motion of all extremities , equal. NEUROLOGIC: No focal deficit. Cranial nerves II through XII are grossly intact. No headache, no double vision or headache. SKIN: Warm and dry. Intact. Turgor-normal. LYMPHATIC: No palpable lymph nodes/no lymphedema. MUSCULOSKELETAL: Normal joints with no swelling. Muscle tone is normal. LAB REVIEW: 09/07/18 05:30 09/07/18 05:30 09/07/18 05:30: Sodium 139.6, Potassium 3.74, Chloride 97.0 L, Carbon Dioxide 38.0 H, Anion Gap 8.34, BUN 14.6, Creatinine 1.47 H, Estimated GFR (MDRD) 49.00 , BUN/Creatinine Ratio 9.93, Glucose 90.1, Calcium 8.62, Total Bilirubin 0.51, AST 19.3, ALT 11.5, Alkaline Phosphatase 99.4, Total Protein 6.50, Albumin 3.46 L, Globulin 3.04, Albumin/Globulin Ratio 1.13 09/07/18 05:30: WBC 9.27, RBC 4.87, Hgb 13.5 L, Hct 43.3, MCV 88.9, MCH 27.7, MCHC 31.2 L, RDW Coeff of Lety 14.5, Plt Count 176, Immature Gran % (Auto) 0.2, Neut % (Auto) 64.3, Lymph % (Auto) 24.9, [place] % (Auto) 7.0, Eos % (Auto) 2.8, Baso % (Auto) 0.8, Immature Gran # (Auto) 0.0, Neut # (Auto) 6.0, Lymph # (Auto ) 2.3, [place] # (Auto) 0.7, Eos # (Auto) 0.3, Baso # (Auto) 0.1 ASSESSMENT/PLAN: 1. Puckering of skin noted with mild pigmentation of both lower extremities more on left than right. The patient is advised to keep legs up. Advised to cut down on salt. Advised to keep legs elevated higher elevated than hips. 2. Medication for blood pressure is being given for patient's bradycardia and Lopressor is down to 50 mg twice a day. He use to be on 100 b.i.d. Amlodipine 5 mg will be started at nighttime. Will continue to monitor rhythm. The patient is asymptomatic from bradycardia with no pauses of more than 2 seconds noted. Plan and coordination of the patient's care discussed in the presence of Statement Clerk and nurse. CONDITION: Stable SCRIBED BY: DIANA DIXON Core Extruder scribed while in presence of service performed by Dr. CARLOS DE LA PAZ on 09/07/18 (08)
[2018-09-07] MEDS: K-DUR PO SCH (09:07)
[2018-09-07] MEDS: ROCEPHIN 1 GM/50 ML D5W 1 GM in PREMIX 50 ML D5W 1 BAG IV SCH (09:07)
[2018-09-07] MEDS: ALDACTONE PO SCH (09:07)
[2018-09-07] MEDS: LEXAPRO PO SCH (09:07)
[2018-09-07] MEDS: ASPIRIN EC PO SCH (09:07)
[2018-09-07] MEDS: XANAX PO SCH ×2 (09:08→21:10)
[2018-09-07] MEDS: LIPITOR PO SCH (09:08)
[2018-09-07] MEDS: LOPRESSOR PO SCH ×2 (09:08→21:09)
[2018-09-07] MEDS: CATAPRES PO SCH ×2 (09:08→21:10)
[2018-09-07] MEDS: PLAVIX PO SCH (09:08)
[2018-09-07] MEDS: MS CONTIN PO SCH ×2 (09:19→21:10)
[2018-09-07] MEDS ORDERED: NORVASC PO SCH (21:00)
[2018-09-07] MEDS: PAMELOR PO SCH (21:09)
[2018-09-07] MEDS: AMBIEN PO SCH (21:10)
[2018-09-07] MEDS: DESYREL PO SCH (21:11)
[2018-09-08 04:57] VITALS: BP 109/68; TEMP 97.9
[2018-09-08] MEDS: OXYCODONE PO SCH (05:22)
[2018-09-08] MEDS: PROTONIX PO SCH (05:30)
[2018-09-08] MEDS ORDERED: LASIX TAB PO SCH (06:30)
[2018-09-08] MEDS: LOPRESSOR PO SCH (08:05)
[2018-09-08] MEDS: XANAX PO SCH (08:06)
[2018-09-08] MEDS: ASPIRIN EC PO SCH (08:06)
[2018-09-08] MEDS: CATAPRES PO SCH (08:06)
[2018-09-08] MEDS: K-DUR PO SCH (08:06)
[2018-09-08] MEDS: LIPITOR PO SCH (08:06)
[2018-09-08] MEDS: ALDACTONE PO SCH (08:06)
[2018-09-08] MEDS: MS CONTIN PO SCH (08:06)
[2018-09-08] MEDS: PLAVIX PO SCH (08:06)
[2018-09-08] MEDS: LEXAPRO PO SCH (08:07)
[2018-09-08] MEDS: ROCEPHIN 1 GM/50 ML D5W 1 GM in PREMIX 50 ML D5W 1 BAG IV SCH (09:18)
[2018-09-08] MEDS ORDERED: LOTRISONE 45 GM TP SCH (09:30)
--- NOTE | 2018-09-08 12:07 | CM.DICTOOL ---
ADMISSION: 09/05/18 16:05 DISCHARGE: SEPTEMBER 08, 2018 DATE OF SERVICE: 09/08/18 FINAL DIAGNOSIS BILATERAL LEG EDEMA, RESOLVING CELLULITIS, ? CHF, RESOLVED HYPERTENSION DYSLIPIDEMIA HISTORY OF LEG EDEMA, DEPENDENT CVA/TIA, MULTIPLE (DR. SANTOS) BRIAN DEPRESSION NON-COMPLIANT WITH LIFESTYLE, MEDICATIONS RENAL ARTERY STENTS, 2006 LUMBAR SPINE SURGERY, 1999 DR. LAW ECHO: 09/16 LVH ENLARGED LAC LVEF 64% NORMAL LEFT VENTRICLE CONTRACTILITY SMOKER LAST VITALS Temp Pulse Resp BP Pulse Ox 97.9 F 48 L 18 109/68 93 L 09/08/18 04:55 09/08/18 08:00 09/08/18 08:00 09/08/18 04:55 09/08/18 04:55 TAKE THESE MEDICATIONS AT HOME Alprazolam (Xanax) 0.5 mg PO BID [facility] Last Admin: 09/08/18 08:06 Dose: 0.5 mg Amlodipine Besylate (Norvasc) 5 mg PO BEDTIME [facility] Last Admin: 09/07/18 21:10 Dose: 5 mg Aspirin (Aspirin Ec) 81 mg PO DAILYWM [facility] Last Admin: 09/08/18 08:06 Dose: 81 mg Atorvastatin Calcium (Lipitor) 80 mg PO DAILY [facility] Last Admin: 09/08/18 08:06 Dose: 80 mg Clonidine (Catapres) 0.2 mg PO BID [facility] Last Admin: 09/08/18 08:06 Dose: 0.2 mg Clopidogrel Bisulfate (Plavix) 75 mg PO DAILY [facility] Last Admin: 09/08/18 08:06 Dose: 75 mg Clotrimazole (Lotrisone 45 Gm) 1 applic TP BID [facility] Last Admin: 09/08/18 09:29 Dose: 1 applic Cyanocobalamin (Vitamin B-12) 1,000 mcg IM MONTHLY [facility] Escitalopram Oxalate (Lexapro) 20 mg PO DAILY [facility] Last Admin: 09/08/18 08:07 Dose: 20 mg Furosemide (Lasix Tab) 40 mg PO QDAC [facility] Last Admin: 09/08/18 05:30 Dose: 40 mg Metolazone (Zaroxolyn) 2.5 mg PO 3 TIMES PER WEEK PRN PRN Reason: edema Metoprolol Tartrate (Lopressor) 50 mg PO BID [facility] Last Admin: 09/08/18 08:05 Dose: 50 mg Morphine Sulfate (Ms Contin) 60 mg PO Q12HR [facility] Last Admin: 09/08/18 08:06 Dose: 60 mg Nitroglycerin (Nitrostat) 0.4 mg SL Q5MIN X 3 DOSES PRN PRN Reason: Chest Pain Nortriptyline HCl (Pamelor) 50 mg PO BEDTIME [facility] Last Admin: 09/07/18 21:09 Dose: 50 mg Oxycodone HCl (Oxycodone) 60 mg PO Q8HR [facility] Last Admin: 09/08/18 05:22 Dose: 60 mg Pantoprazole Sodium (Protonix) 20 mg PO QDAC [facility] Last Admin: 09/08/18 05:30 Dose: 40 mg Potassium Chloride (K-Dur) 20 meq PO DAILY [facility] Last Admin: 09/08/18 08:06 Dose: 20 meq Spironolactone (Aldactone) 25 mg PO DAILY [facility] Last Admin: 09/08/18 08:06 Dose: 25 mg Trazodone HCl (Oleptro ER) 150 mg PO BEDTIME [facility] Last Admin: 09/07/18 21:11 Dose: 150 mg Zolpidem Tartrate (Ambien) 10 mg PO BEDTIME [facility] Last Admin: 09/07/18 21:10 Dose: 10 mg ALLERGIES lisinopril [From Zestril] Adverse Reaction (Severe, Verified 05/20/16 11:04) Swelling baclofen Adverse Reaction (Verified 05/20/16 10:57) Unknown DISCONTINUED MEDICATIONS None MEDICATION CHANGES Norvasc 5mg PO decreased from BID to at bedtime only Lopressor 50 mg PO BID decreased from 100 mg BID Clonidine 0.2 mg PO decreased from 0.3 mg BID NEW PRESCRIPTIONS: KEFLEX 500 MG 1 CAPSULE BY MOUTH TWICE A DAY FOR FIVE DAYS LOTRISONE CREAM 0.45% APPLY TO BILATERAL LOWER EXTREMITIES BID FOR 10-15 DAYS SMOKING: SMOKER DISEASE SPECIFIC EDUCATION: LEG EDEMA CELLULITIS SOA BRADYCARDIA LAB REVIEW: 09/08/18 04:34 09/08/18 04:34 09/08/18 04:34: Sodium 138.6, Potassium 3.65, Chloride 95.3 L, Carbon Dioxide 38.0 H, Anion Gap 8.95, BUN 15.3, Creatinine 1.53 H, Estimated GFR (MDRD) 47.00 , BUN/Creatinine Ratio 10.00, Glucose 95.1, Calcium 8.35 L, Total Bilirubin 0.49 , AST 22.0, ALT 12.5, Alkaline Phosphatase 103.3, Total Protein 6.79, Albumin 3.54, Globulin 3.25, Albumin/Globulin Ratio 1.08 09/08/18 04:34: WBC 12.81 H, RBC 4.91, Hgb 13.8 L, Hct 44.0, MCV 89.6, MCH 28.1 , MCHC 31.4 L, RDW Coeff of Lety 14.6, Plt Count 193, Immature Gran % (Auto) 0.3 , Neut % (Auto) 73.4, Lymph % (Auto) 17.3, [place] % (Auto) 6.6, Eos % (Auto) 1.9, Baso % (Auto) 0.5, Immature Gran # (Auto) 0.0, Neut # (Auto) 9.4 H, Lymph # ( Auto) 2.2, [place] # (Auto) 0.8, Eos # (Auto) 0.2, Baso # (Auto) 0.1 PLAN: DISCHARGE HOME TODAY 09/08/2018 DIET: LOW SALT ACTIVITY: KEEP LEGS ELEVATED ABOVE HIPS AT REST AND ALSO AT BEDTIME FOLLOW UP WITH DR. DE LA PAZ/SOLANGE GONZALES APRN ON WednesdayAugust AT 915 AM. PLEASE CALL [phone] TO RESCHEDULE IF UNABLE TO KEEP. CODE STATUS: FULL CODE ALERT, ORIENTED TIMES THREE. MR. DENISE IS AGREEABLE WITH DISCHARGE HOME TODAY. HE IS INDEPENDENT WITH ALL ACTIVITIES OF DAILY LIVING. USES A STRAIGHT CAN TO ASSIST IN SAFE AMBULATION. REQUIRES THE USE OF CONTINUOUS OXYGEN AT 2L NC. APPETITE IS GOOD. LAST BM 09/08. NON PITTING EDEMA AND ERYTHEMA NOTED TO BLE BUT THERE ARE NO OPEN AREAS, NO WEEPING, OR NO BLISTERS VISUALIZED TODAY. CARLOS DE LA PAZ M.D. SOLANGE GONZALES APRN
--- NOTE | 2018-09-13 11:51 | PN ---
DATE OF SERVICE: 09/08/18 SUBJECTIVE: 58-year-old white male hospitalized with bilateral leg edema, questionable cellulitis. The cellulitis and/or leg edema has practically subsided. The patient's blood pressure as noticed has been 109/68 and he has been on less medications than before. He is on Clonidine 0.2 mg twice a day and Amlodipine has been reduced to 5 mg one at night. The Lopressor has been 50 mg twice a day because of his dary arrhythmias. The patient is feeling a lot better. REVIEW OF SYSTEMS: CONSTITUTIONAL: No night sweats. No fatigue, malaise, lethargy. No fever or chills. HEENT: Eyes: No visual changes. No eye pain. No eye discharge. ENT: No runny nose. No epistaxis. No sinus pain. No sore throat. No odynophagia. No congestion. RESPIRATORY: No cough, no congestion. No hemoptysis. No shortness of breath. CARDIOVASCULAR: No angina symptoms. No CHF symptoms. No atypical chest pain for CAD. No palpitations. No PND. No orthopnea. GASTROINTESTINAL: No abdominal pain. No nausea or vomiting. No diarrhea or constipation. No hematemesis. No hematochezia. GENITOURINARY: No urgency. No frequency. No dysuria. No hematuria. No obstructive symptoms. No discharge. No pain. No significant abnormal bleeding. MUSCULOSKELETAL: Back pain which is rated 2 to 9 on a scale of 1 to 10. He is being followed by Dr. Fleming on multiple medications. NEUROLOGICAL: No headache. No neck pain. No syncope. No seizures. No dizziness. PSYCHIATRIC: Not anxious. No depression. No suicidal thoughts. No homicidal thoughts. SKIN: No rash. No lesions. No wounds. ENDOCRINE: No unexplained weight loss. No weight gain. HEMATOLOGIC/LYMPHATIC: No anemia. No purpura. No petechiae. No prolonged or excessive bleeding. No palpable lymph nodes. PHYSICAL EXAMINATION: VITAL SIGNS: Temperature 97.9, pulse 50, respiratory rate 16, blood pressure 109 /68, pulse ox 93% on room air. HEENT: Head normocephalic, atraumatic. Eyes: Extraocular muscles are intact. Pupils are equal, round and reactive to light and accommodation. Ears: No lesions. Nose appeared normal. Throat: No exudate or erythema. NECK: Supple. No JVD, no carotid bruit. No lymphadenopathy or thyromegaly. LUNGS: Clear to auscultation. Percussion note normal. Chest symmetrical. HEART: S1, S2, no S3. No murmurs. No cyanosis or clubbing. No ascites. Pulses: Dorsalis pedis and posterior tibial pulses +1 to +2 bilaterally. ABDOMEN: Soft. Nontender. Bowel sounds active. No CVA tenderness. No mass felt. EXTREMITIES: No pedal edema at all. Puckered skin noted. Full range of motion of all extremities, equal. NEUROLOGIC: No focal deficit. Cranial nerves II through XII are grossly intact. No headache, no double vision or headache. SKIN: Not dry. Intact. Turgor - normal. LYMPHATIC: No palpable lymph nodes/no lymphedema. MUSCULOSKELETAL: Normal joints with no swelling. Muscle tone is normal. LABS: Hemoglobin 13.8, hematocrit 44, WBC 12,000, normal differential. Creatinine 1.5 , BUN 15, potassium 3.6. ASSESSMENT: 1. Leg edema practically subsided. No cellulitis. 2. The patient has history of hypertension. 3. Dyslipidemia. 4. Generalized severe osteoarthritis. 5. Depression. PLAN: 1. Continue all medications as before except for the changes like Amlodipine to be taken one at night, use to b.i.d. 2. Clonidine 0.2 twice a day, use to be 0.3 twice a day. 3. Metoprolol 100 mg b.i.d. that use to be 100 b.i.d. and now he is going to be on 50 mg twice a day. 4. The patient is going to be given Keflex 500 mg twice a day for five days and Lotrisone twice a day as p.r.n. on both legs. 5. Strongly advised not to take any nonsteroidal antiinflammatory. 6. The patient is obese 35 BMI, strongly advised to lose weight which may be good for all of his medical problems. CONDITION: Stable. TIME SPENT: More than 30 minutes. Plan and coordination of the patient's care discussed in the presence of nurse. REENA
--- NOTE | 2018-09-13 13:31 | DS ---
DATE OF SERVICE: 09/08/18 FINAL DIAGNOSIS: 1. BILATERAL LEG EDEMA, RESOLVING 2. CELLULITIS, ? 3. CHF, RESOLVED 4. HYPERTENSION 5. DYSLIPIDEMIA 6. HISTORY OF LEG EDEMA, DEPENDENT 7. CVA/TIA, MULTIPLE (DR. SANTOS) 8. BRIAN 9. DEPRESSION 10. NON-COMPLIANT WITH LIFESTYLE, MEDICATIONS 11. RENAL ARTERY STENTS, 2006 12. LUMBAR SPINE SURGERY, 1999 DR. LAW 13. SMOKER ECHO: 09/16 [facility]H ENLARGED LAC LVEF 64% NORMAL LEFT VENTRICLE CONTRACTILITY LAST VITALS Temp Pulse Resp BP Pulse Ox 97.9 F 48 L 18 109/68 93 L 09/08/18 04:55 09/08/18 08:00 09/08/18 08:00 09/08/18 04:55 09/08/18 04:55 DISCHARGE INSTRUCTIONS: FOLLOW UP WITH DR. DE LA PAZ/SOLANGE GONZALES APRN ON WednesdayAugust AT 915 AM. PLEASE CALL [phone] TO RESCHEDULE IF UNABLE TO KEEP. MEDICATIONS AT DISCHARGE: Alprazolam (Xanax) 0.5 mg PO BID [facility] Last Admin: 09/08/18 08:06 Dose: 0.5 mg Amlodipine Besylate (Norvasc) 5 mg PO BEDTIME [facility] Last Admin: 09/07/18 21:10 Dose: 5 mg Aspirin (Aspirin Ec) 81 mg PO DAILYWM [facility] Last Admin: 09/08/18 08:06 Dose: 81 mg Atorvastatin Calcium (Lipitor) 80 mg PO DAILY [facility] Last Admin: 09/08/18 08:06 Dose: 80 mg Clonidine (Catapres) 0.2 mg PO BID [facility] Last Admin: 09/08/18 08:06 Dose: 0.2 mg Clopidogrel Bisulfate (Plavix) 75 mg PO DAILY [facility] Last Admin: 09/08/18 08:06 Dose: 75 mg Clotrimazole (Lotrisone 45 Gm) 1 applic TP BID [facility] Last Admin: 09/08/18 09:29 Dose: 1 applic Cyanocobalamin (Vitamin B-12) 1,000 mcg IM MONTHLY [facility] Escitalopram Oxalate (Lexapro) 20 mg PO DAILY [facility] Last Admin: 09/08/18 08:07 Dose: 20 mg Furosemide (Lasix Tab) 40 mg PO QDAC [facility] Last Admin: 09/08/18 05:30 Dose: 40 mg Metolazone (Zaroxolyn) 2.5 mg PO 3 TIMES PER WEEK PRN PRN Reason: edema Metoprolol Tartrate (Lopressor) 50 mg PO BID [facility] Last Admin: 09/08/18 08:05 Dose: 50 mg Morphine Sulfate (Ms Contin) 60 mg PO Q12HR [facility] Last Admin: 09/08/18 08:06 Dose: 60 mg Nitroglycerin (Nitrostat) 0.4 mg SL Q5MIN X 3 DOSES PRN PRN Reason: Chest Pain Nortriptyline HCl (Pamelor) 50 mg PO BEDTIME [facility] Last Admin: 09/07/18 21:09 Dose: 50 mg Oxycodone HCl (Oxycodone) 60 mg PO Q8HR [facility] Last Admin: 09/08/18 05:22 Dose: 60 mg Pantoprazole Sodium (Protonix) 20 mg PO QDAC [facility] Last Admin: 09/08/18 05:30 Dose: 40 mg Potassium Chloride (K-Dur) 20 meq PO DAILY [facility] Last Admin: 09/08/18 08:06 Dose: 20 meq Spironolactone (Aldactone) 25 mg PO DAILY [facility] Last Admin: 09/08/18 08:06 Dose: 25 mg Trazodone HCl (Oleptro ER) 150 mg PO BEDTIME [facility] Last Admin: 09/07/18 21:11 Dose: 150 mg Zolpidem Tartrate (Ambien) 10 mg PO BEDTIME [facility] Last Admin: 09/07/18 21:10 Dose: 10 mg MEDICATION CHANGES: Norvasc 5mg PO decreased from BID to at bedtime only Lopressor 50 mg PO BID decreased from 100 mg BID Clonidine 0.2 mg PO decreased from 0.3 mg BID NEW PRESCRIPTIONS: KEFLEX 500 MG 1 CAPSULE BY MOUTH TWICE A DAY FOR FIVE DAYS LOTRISONE CREAM 0.45% APPLY TO BILATERAL LOWER EXTREMITIES BID FOR 10-15 DAYS DISCONTINUED MEDICATIONS: NONE DIET INSTRUCTIONS: Low salt ACTIVITY: Keep legs elevated above hips at rest and also at bedtime. SMOKING: SMOKER DISEASE SPECIFIC EDUCATION: LEG EDEMA CELLULITIS [facility]: 58-year-old white male hospitalized through the office with this massive leg edema. The patient has possibility of cellulitis on the left leg, given antibiotics. Later on, switched to Keflex. I don't think the patient really had cellulitis, bilateral leg edema subsided within a couple of days. He was advised to cut down on salt intake and advised to elevate the legs. Kidney functions remained stable. He was taken off a few of his blood pressure medications as described in the discharge note. He is going to be on Clonidine 0.2 mg twice a day, Amlodipine 5 mg p.o. at h.s. and Metoprolol 50 mg b.i.d. His blood pressure systolic was 110. It is very likely that the patient is non compliant of his medications and needs more medication when he is coming to the office even though his blood pressure is usually out of control. I explained to him about it and that that is the only reason why his blood pressure seems to be well-controlled but even way lower with the medications that he is taking. CONDITION AT TIME OF DISCHARGE: Stable TIME SPENT: More than 60 minutes. REENA
--- NOTE | 2018-09-13 13:33 | PN ---
BILLING 09/05/18 LEVEL 5 ADMISSION DAY 09/06/18 INTERMEDIATE 09/07/18 INTERMEDIATE 09/08/18 DISCHARGE MTDD
== END 2018-09-08 13:10 | disposition home or self-care (01) | DRG 603 ==
LOC: MEDSURG B 16:05
PROVIDERS: ADMIT Internal Medicine; ATTEND Internal Medicine
DX: M15.9 Polyosteoarthritis, unspecified; R06.02 Shortness of breath; I10 Essential (primary) hypertension; Z91.19 Patient's noncompliance with other medical treatment and regimen; F41.1 Generalized anxiety disorder; Z86.73 Personal history of transient ischemic attack (TIA), and cerebral infarction without residual deficits; L03.116 Cellulitis of left lower limb; F32.9 Major depressive disorder, single episode, unspecified; I50.9 Heart failure, unspecified; Z72.0 Tobacco use; E78.5 Hyperlipidemia, unspecified

== ENCOUNTER 2020-05-30 13:04 | Inpatient (IN) ==
[2020-05-30] MEDS ORDERED: TYLENOL PO PRN (13:36)
[2020-05-30] MEDS ORDERED: ATROPINE SULFATE PFS IVP PRN (13:36)
[2020-05-30] MEDS ORDERED: NITROSTAT SL PRN (13:36)
[2020-05-30] MEDS ORDERED: VASOTEC IV IVP PRN (13:41)
[2020-05-30] MEDS ORDERED: OXYCODONE 5 MG PO SCH (14:00)
[2020-05-30] MEDS: VENTOLIN HFA (PER PUFF-WITH SPACER) IH SCH ×2 (14:14→19:07)
[2020-05-30 14:16] LABS: BASOPHILS # (AUTO) 0.1 K/uL (0-0.2); BASOPHILS % (AUTO) 1.1 % (0.0-3.0); EOSINOPHILS # (AUTO) 0.3 K/ul (0.0-0.7); EOSINOPHILS % (AUTO) 4.6 % (0.0-7.0); HEMATOCRIT 46.1 % (42.0-52.0); HEMOGLOBIN 15.1 g/dl (14.0-18.0); IMMATURE GRANULOCYTE % (AUTO) 0.3 % (0.0-5.0); LYMPHOCYTES # (AUTO) 2.4 K/uL (0.60-3.4); LYMPHOCYTES % (AUTO) 32.6 (10.0-50.0); MEAN CORPUSCULAR HEMOGLOBIN 28.7 pg (27.0-31.0); MEAN CORPUSCULAR HGB CONC 32.8 (31.8-35.4); MEAN CORPUSCULAR VOLUME 87.5 fl (80.0-94.0); MONOCYTES # (AUTO) 0.6 K/uL (0.4-2.0); MONOCYTES % (AUTO) 7.6 (0-10); NEUTROPHILS # (AUTO) 3.9 K/ul (2.0-6.9); NEUTROPHILS % (AUTO) 53.8 % (42.2-75.2); PLATELET COUNT 204 10^3/uL (140-440); RDW COEFFICIENT OF VARIATION 14.1 % (11.6-14.8); RED BLOOD COUNT 5.27 10^6/ul (4.70-6.10); WHITE BLOOD COUNT 7.33 K/ul (4.2-10.2)
[2020-05-30 14:26] LABS: ALANINE AMINOTRANSFERASE 10.4 U/L (0-50); ALBUMIN 4.22 g/dL (3.5-5.0); ALKALINE PHOSPHATASE 110.5 U/L (56-119); ASPARTATE AMINO TRANSFERASE 32.1 U/L (17-59); BILIRUBIN,TOTAL 0.6 mg/dL (0.2-1.3); BLOOD UREA NITROGEN 11.5 mg/dL (9-20); CALCIUM 9.16 mg/dL (8.4-10.2); CARBON DIOXIDE 38.6 mmol/L (22-30.0); CHLORIDE 95.8 mmol/L (98-107); CREATININE 1.4 mg/dL (0.60-1.10); GLUCOSE 81.6 mg/dL (74-106); POTASSIUM 3.26 mmol/L (3.5-5.1); SODIUM 138.1 mmol/L (134.5-145); TOTAL PROTEIN 8.12 g/dL (6.3-8.2)
--- NOTE | 2020-05-30 14:28 | DI ---
EXAM: Chest two views HISTORY: Increase shortness of breath COMPARISON: 09/05/2018 TECHNIQUE: Two views of the chest were performed FINDINGS: Normal heart size. Normal mediastinal contour. The lungs are clear. No pleural effusion or pneumothorax. No acute osseous abnormality. IMPRESSION: No acute cardiopulmonary process.
[2020-05-30 14:49] VITALS: BMI 33.3
[2020-05-30 14:49] LABS: BILIRUBIN,URINE Negative (NEGATIVE); CLARITY,URINE Clear (CLEAR); COLOR,URINE Yellow (YELLOW); GLUCOSE, URINE (UA) Negative (NEGATIVE); KETONES,URINE Negative (NEGATIVE); LEUKOCYTE ESTERASE ,URINE Negative (NEGATIVE); NITRITE,URINE Negative (NEGATIVE); PH,URINE 6.5 (5-9); PROTEIN,URINE Negative (NEGATIVE); URINE, BLOOD 1+ (NEGATIVE); UROBILINOGEN,URINE 0.2 (0.2)
[2020-05-30] MEDS ORDERED: OXYCODONE PO PRN (14:50)
[2020-05-30 14:53] LABS: URINE WBC, MICROSCOPIC 0-2 (0-2)
[2020-05-30 14:54] LABS: RENAL EPITHELIAL CELLS,URINE 0-2 (NOT PRESENT); SQUAMOUS EPITHELIAL CELL,UR 0-2 (0-5)
[2020-05-30] MEDS: ROCEPHIN 1 GM/50 ML D5W 1 GM/50 ML BAG IV SCH (15:24)
[2020-05-30] MEDS: LASIX IVP SCH (15:25)
[2020-05-30] MEDS: FLOMAX PO SCH (17:14)
[2020-05-30] MEDS: CATAPRES PO SCH (20:31)
[2020-05-30] MEDS: DESYREL PO SCH (20:31)
[2020-05-30] MEDS: LOPRESSOR PO SCH (20:31)
[2020-05-30] MEDS: NORVASC PO SCH (20:31)
[2020-05-30] MEDS: AMBIEN PO SCH (20:32)
[2020-05-30] MEDS: XANAX PO SCH (20:32)
[2020-05-30] MEDS: MS CONTIN PO SCH (20:33)
[2020-05-30] MEDS: PAMELOR PO SCH (20:35)
[2020-05-30] MEDS: OXYCODONE PO PRN (20:52)
[2020-05-30] MEDS ORDERED: MS CONTIN PO SCH (21:00)
[2020-05-30] MEDS ORDERED: TRAZODONE 150 MG PO SCH (21:00)
[2020-05-30] MEDS ORDERED: NORTRIPTYLINE 25 MG PO SCH (21:00)
[2020-05-30] MEDS ORDERED: MORPHINE SULFATE TAB PO SCH (21:00)
[2020-05-31 05:01] LABS: BASOPHILS # (AUTO) 0.1 K/uL (0-0.2); EOSINOPHILS # (AUTO) 0.3 K/ul (0.0-0.7); EOSINOPHILS % (AUTO) 3.6 % (0.0-7.0); HEMATOCRIT 45.6 % (42.0-52.0); HEMOGLOBIN 14.8 g/dl (14.0-18.0); IMMATURE GRANULOCYTE % (AUTO) 0.2 % (0.0-5.0); LYMPHOCYTES # (AUTO) 1.9 K/uL (0.60-3.4); LYMPHOCYTES % (AUTO) 22.9 (10.0-50.0); MEAN CORPUSCULAR HEMOGLOBIN 28.2 pg (27.0-31.0); MEAN CORPUSCULAR HGB CONC 32.5 (31.8-35.4); MEAN CORPUSCULAR VOLUME 86.9 fl (80.0-94.0); MONOCYTES # (AUTO) 0.6 K/uL (0.4-2.0); MONOCYTES % (AUTO) 7.1 (0-10); NEUTROPHILS # (AUTO) 5.4 K/ul (2.0-6.9); NEUTROPHILS % (AUTO) 65.2 % (42.2-75.2); PLATELET COUNT 187 10^3/uL (140-440); RED BLOOD COUNT 5.25 10^6/ul (4.70-6.10); WHITE BLOOD COUNT 8.29 K/ul (4.2-10.2)
[2020-05-31 05:15] LABS: ALANINE AMINOTRANSFERASE 9.1 U/L (0-50); ALBUMIN 3.63 g/dL (3.5-5.0); ALKALINE PHOSPHATASE 102.7 U/L (56-119); ASPARTATE AMINO TRANSFERASE 28.1 U/L (17-59); BILIRUBIN,TOTAL 0.52 mg/dL (0.2-1.3); BLOOD UREA NITROGEN 10.3 mg/dL (9-20); CALCIUM 8.88 mg/dL (8.4-10.2); CHLORIDE 95.7 mmol/L (98-107); CREATININE 1.3 mg/dL (0.60-1.10); GLUCOSE 101.9 mg/dL (74-106); POTASSIUM 3.36 mmol/L (3.5-5.1); SODIUM 138.4 mmol/L (134.5-145); TOTAL PROTEIN 7.02 g/dL (6.3-8.2)
[2020-05-31 05:21] LABS: CARBON DIOXIDE 37.7 mmol/L (22-30.0)
[2020-05-31] MEDS: VENTOLIN HFA (PER PUFF-WITH SPACER) IH SCH ×3 (05:22→19:19)
[2020-05-31] MEDS: PRILOSEC PO SCH (05:40)
[2020-05-31] MEDS: LASIX IVP SCH (05:41)
--- NOTE | 2020-05-31 08:24 | PN ---
DATE OF SERVICE: 05/30/2020 SUBJECTIVE: The patient was seen and examined with the Nurse Practitioner. Physical was done and plan was laid out for his treatment for bilateral leg edema and cellulitis. Condition is stable. The patient is going to be on leg elevation, IV Lasix and antibiotics TIME SPENT: More than 30 minutes. Plan and coordination of the patient's care discussed in the presence of nurse. REENA
[2020-05-31] MEDS ORDERED: K-DUR PO SCH (08:30)
[2020-05-31] MEDS: ZETIA PO SCH (08:41)
[2020-05-31] MEDS: CATAPRES PO SCH ×2 (08:41→20:08)
[2020-05-31] MEDS: PLAVIX PO SCH (08:42)
[2020-05-31] MEDS: XANAX PO SCH ×3 (08:42→20:10)
[2020-05-31] MEDS: LOPRESSOR PO SCH ×2 (08:42→20:10)
[2020-05-31] MEDS: LIPITOR PO SCH (08:43)
[2020-05-31] MEDS: MS CONTIN PO SCH ×2 (08:43→20:08)
[2020-05-31] MEDS: ROCEPHIN 1 GM/50 ML D5W 1 GM/50 ML BAG IV SCH (08:53)
[2020-05-31] MEDS: OXYCODONE PO PRN ×3 (08:54→20:09)
[2020-05-31] MEDS ORDERED: LEXAPRO PO SCH (09:00)
[2020-05-31] MEDS ORDERED: ALDACTONE PO SCH (09:00)
[2020-05-31] MEDS ORDERED: PANTOPRAZOLE 20 MG PO SCH (09:00)
--- NOTE | 2020-05-31 10:29 | HP ---
DATE OF SERVICE: 05/30/20 REASON FOR HOSPITALIZATION/HISTORY OF PRESENT ILLNESS: 59-year-old male with worsening leg edema, draining areas on legs. Zaroxolyn is not working. He is starting to cough. PAST MEDICAL HISTORY: Hypertension [place] CAD CKD COPD B12 deficiency anemia Migraines Dyslipidemia Chronic back pain Renal artery stenosis with stent Depression Sleep apnea on CPAP PSA 10-12 (2.1) Dr. Nolasco follows; PSA 7-16 (0.5) PAST SURGICAL HISTORY: Back surgery, 1999 Renal artery stent 2000, 2002 and 2006 Gallbladder 2004 Hernia 2004 REVIEW OF SYSTEMS: CONSTITUTIONAL: Fatigue. No night sweats. No malaise, lethargy. No fever or chills. HEENT: Eyes: No visual changes. No eye pain. No eye discharge. ENT: No runny nose. No epistaxis. No sinus pain. No sore throat. No odynophagia. No ear pain. No congestion. RESPIRATORY: Cough. No hemoptysis. CARDIOVASCULAR: Shortness of breath. No angina symptoms. No CHF symptoms. No atypical chest pain for CAD. No palpitations. No PND. No orthopnea. GASTROINTESTINAL: No abdominal pain. No nausea or vomiting. No diarrhea or constipation. No hematemesis. No hematochezia. GENITOURINARY: No urgency. No frequency. No dysuria. No hematuria. No obstructive symptoms. No discharge. No pain. No significant abnormal bleeding. MUSCULOSKELETAL: No musculoskeletal pain. No joint swelling. No arthritis. NEUROLOGICAL: No headache. No neck pain. No syncope. No seizures. No dizziness. Gait - cane. PSYCHIATRIC: Not anxious. No depression. No suicidal thoughts. No homicidal thoughts. SKIN: No rash. No lesions. No wounds. ENDOCRINE: Weight gain. HEMATOLOGIC/LYMPHATIC: No anemia. No purpura. No petechiae. No prolonged or excessive bleeding. No palpable lymph nodes. PERSONAL/FAMILY/SOCIAL HISTORY: The patient is with 3 children. Occupation disabled. Father , age 69, CVA, hypertension. Mother age 68 [place]. Brother(s) 2. Sister(s) 3. MEDICATIONS: Lipitor 80 mg one daily Lopressor 100 mg one b.i.d. Lexapro 20 mg one daily Xanax 0.5 mg one b.i.d. Plavix 75 mg one daily. Oxycodone 30 mg two pills q.8 (Dr. Fleming) Trazadone 150 mg h.s. (Dr. Fleming) Morphine 60 mg one b.i.d. (Dr. Fleming) Ambien 10 mg one h.s. (Dr. Fleming) Pamelor 25 mg two at h.s. Nitroglycerin p.r.n. Norvasc 5 mg one daily ASA 81 mg one daily Protonix 20 mg one daily Lasix 40 mg one daily B12 1000 mg IM monthly Zaroxolyn 2.5 mg three/week Clonidine 0.3 mg with b.i.d. Aldactone 25 mg one daily 02 p.r.n. K+ 20 mEq one daily Neb treatment Albuterol 0.1 Keflex 500 mg t.i.d. times 10 days Lotrisone cream ALLERGIES: ZESTRIL, BACLOFEN PHYSICAL EXAMINATION: GENERAL: Oriented times three. VITAL SIGNS: Pulse 90, BP 162/94 left @ 10:40, temperature 98.1, 02 sat 98%. Weight 264.0, height 6'1", BMI 34.8. HEENT: Head normocephalic, atraumatic. Eyes: Extraocular muscles are intact. Pupils are equal, round and reactive to light and accommodation. Ears: No lesions. Nose appeared normal. Throat: No exudate or erythema. NECK: Supple. No JVD, no carotid bruit. No lymphadenopathy or thyromegaly. LUNGS: Decreased breath sounds. Clear to auscultation. Percussion note normal. Chest symmetrical. HEART: S1, S2, no S3. No murmur. No cyanosis or clubbing. No ascites. Pulses: Dorsalis pedis and posterior tibial pulses +1 to +2 bilaterally. ABDOMEN: Soft. Nontender. Bowel sounds active. No CVA tenderness. No mass felt. EXTREMITIES: +3 bilateral leg edema. Reddended open areas on anterior lower legs with serosangenous drainage. Full range of motion of all extremities, equal. NEUROLOGIC: No focal deficit. Cranial nerves II through XII are grossly intact. No headache, no double vision or headache. SKIN: Not dry. Intact. Turgor - normal. LYMPHATIC: No palpable lymph nodes/no lymphedema. MUSCULOSKELETAL: Normal joints with no swelling. Muscle tone is normal. RECTAL: Prostate 0.5 (-2019). Colonoscopy: 2009 Dr. Shaver. ASSESSMENT: 1. Bilateral leg edema with bilateral cellulitis. 2. Hypertension. 3. 02 @ night. 4. Chronic retinal detachment - Dr. Fleming. 5. Chronic back pain. 6. Hyperglycemia. 7. Leg edema. 8. Chronic bronchitis. 9. Small strokes per Dr. Fleming. 10. Right renal artery stents 2006. 11. Smoking. 12. COPD. 13. Chronic kidney disease, Stage 3. 14. Noncompliant with diet, lifestyle and meds. 15. CVA - Dr. Fleming. 16. Hypertension. 17. B12 deficiency. 18. Dyslipidemia. 19. Depression. 20. L-spine surgery, 2000 - Dr. Weston 21. Sleep apnea, 22. Insomnia. 23. CAD. 24. Migraines. 25. [place]. 26. Hernia. PLAN: 1. Routine telemetry orders, no cardiac markers. 2. CBC, CMP now and daily. 3. Elevate legs. 4. Daily weight. 5. Lasix 40 mg daily IV. 6. Hold p.o. Lasix. 7. Chest x-ray. 8. U/A. 9. Regular diet. 10. Rocephin 1 gm IV daily. 11. Wound cultures open areas. 12. Vasotec 1.25 IV q.6hr p.r.n., Systolic greater than 150 13. Patient will have respiratory panel by PCR in the tent (negative). TIME SPENT: More than 70 minutes. MTDD
[2020-05-31] MEDS: ZAROXOLYN PO SCH (13:30)
[2020-05-31] MEDS: FLOMAX PO SCH (17:23)
[2020-05-31] MEDS ORDERED: K-DUR PO STA (19:07)
[2020-05-31] MEDS: DESYREL PO SCH (20:08)
[2020-05-31] MEDS: PAMELOR PO SCH (20:09)
[2020-05-31] MEDS: AMBIEN PO SCH (20:10)
[2020-05-31] MEDS: NORVASC PO SCH (20:10)
[2020-06-01 04:49] LABS: BASOPHILS # (AUTO) 0.1 K/uL (0-0.2); BASOPHILS % (AUTO) 0.7 % (0.0-3.0); EOSINOPHILS # (AUTO) 0.3 K/ul (0.0-0.7); EOSINOPHILS % (AUTO) 3.4 % (0.0-7.0); HEMATOCRIT 45.1 % (42.0-52.0); HEMOGLOBIN 14.7 g/dl (14.0-18.0); IMMATURE GRANULOCYTE % (AUTO) 0.2 % (0.0-5.0); LYMPHOCYTES # (AUTO) 2.2 K/uL (0.60-3.4); LYMPHOCYTES % (AUTO) 23.5 (10.0-50.0); MEAN CORPUSCULAR HEMOGLOBIN 28.1 pg (27.0-31.0); MEAN CORPUSCULAR HGB CONC 32.6 (31.8-35.4); MEAN CORPUSCULAR VOLUME 86.1 fl (80.0-94.0); MONOCYTES # (AUTO) 0.7 K/uL (0.4-2.0); MONOCYTES % (AUTO) 7.4 (0-10); NEUTROPHILS # (AUTO) 6.1 K/ul (2.0-6.9); NEUTROPHILS % (AUTO) 64.8 % (42.2-75.2); PLATELET COUNT 187 10^3/uL (140-440); RDW COEFFICIENT OF VARIATION 13.9 % (11.6-14.8); RED BLOOD COUNT 5.24 10^6/ul (4.70-6.10); WHITE BLOOD COUNT 9.44 K/ul (4.2-10.2)
[2020-06-01] MEDS: OXYCODONE PO PRN ×4 (04:51→21:51)
[2020-06-01 05:01] LABS: ALBUMIN 3.5 g/dL (3.5-5.0); ALKALINE PHOSPHATASE 109.6 U/L (56-119); BILIRUBIN,TOTAL 0.7 mg/dL (0.2-1.3); BLOOD UREA NITROGEN 13.4 mg/dL (9-20); CALCIUM 8.84 mg/dL (8.4-10.2); CHLORIDE 93.6 mmol/L (98-107); CREATININE 1.37 mg/dL (0.60-1.10); GLUCOSE 110.6 mg/dL (74-106); POTASSIUM 3.3 mmol/L (3.5-5.1); SODIUM 134.5 mmol/L (134.5-145); TOTAL PROTEIN 6.86 g/dL (6.3-8.2)
[2020-06-01 05:08] LABS: CARBON DIOXIDE 35.4 mmol/L (22-30.0)
[2020-06-01] MEDS: VENTOLIN HFA (PER PUFF-WITH SPACER) IH SCH ×3 (05:41→19:49)
[2020-06-01] MEDS: PRILOSEC PO SCH (05:47)
[2020-06-01] MEDS: LASIX IVP SCH (05:47)
[2020-06-01] MEDS: LIPITOR PO SCH (09:23)
[2020-06-01] MEDS: ZETIA PO SCH (09:23)
[2020-06-01] MEDS: CATAPRES PO SCH ×2 (09:23→20:34)
[2020-06-01] MEDS: PLAVIX PO SCH (09:24)
[2020-06-01] MEDS: XANAX PO SCH ×3 (09:24→20:33)
[2020-06-01] MEDS: LOPRESSOR PO SCH ×2 (09:24→20:33)
[2020-06-01] MEDS: ROCEPHIN 1 GM/50 ML D5W 1 GM/50 ML BAG IV SCH (09:24)
[2020-06-01] MEDS: MS CONTIN PO SCH ×2 (09:24→20:33)
[2020-06-01] MEDS: K-DUR PO SCH ×5 (09:24→20:33)
--- NOTE | 2020-06-01 12:17 | DI ---
EXAM: Radiographs, left foot HISTORY: Left foot pain. COMPARISON: None. TECHNIQUE: Three views. FINDINGS: Bone mineralization is normal. There is no fracture or dislocation. Moderate spurring se en throughout the dorsal aspect of the joints of the midfoot. There are moderate sized spurs off the calcaneus at the Achilles tendon insertion and plantar aponeurosis. There is also moderate spurring at the tibiotalar joint. No erosions identified. Diffuse subcutaneous edema is present. IMPRESSION: 1. No fracture or dislocation. 2. Moderate osteoarthritis and calcaneal spurs. 3. Diffuse subcutaneous edema.
[2020-06-01] MEDS: FLOMAX PO SCH (17:10)
[2020-06-01] MEDS: AMBIEN PO SCH (20:33)
[2020-06-01] MEDS: DESYREL PO SCH (20:33)
[2020-06-01] MEDS: NORVASC PO SCH (20:33)
[2020-06-01] MEDS: PAMELOR PO SCH (20:33)
[2020-06-01] MEDS: LOTRISONE 45 GM TP SCH (20:39)
[2020-06-02] MEDS: OXYCODONE PO PRN ×4 (03:54→20:27)
[2020-06-02] MEDS: VENTOLIN HFA (PER PUFF-WITH SPACER) IH SCH ×3 (05:02→19:09)
[2020-06-02] MEDS: PRILOSEC PO SCH (05:52)
[2020-06-02 06:11] LABS: BASOPHILS # (AUTO) 0.1 K/uL (0-0.2); BASOPHILS % (AUTO) 0.8 % (0.0-3.0); EOSINOPHILS # (AUTO) 0.4 K/ul (0.0-0.7); HEMATOCRIT 44.6 % (42.0-52.0); HEMOGLOBIN 14.4 g/dl (14.0-18.0); IMMATURE GRANULOCYTE % (AUTO) 0.2 % (0.0-5.0); LYMPHOCYTES # (AUTO) 2.6 K/uL (0.60-3.4); LYMPHOCYTES % (AUTO) 29.7 (10.0-50.0); MEAN CORPUSCULAR HEMOGLOBIN 28.4 pg (27.0-31.0); MEAN CORPUSCULAR HGB CONC 32.3 (31.8-35.4); MONOCYTES # (AUTO) 0.6 K/uL (0.4-2.0); NEUTROPHILS # (AUTO) 5.1 K/ul (2.0-6.9); NEUTROPHILS % (AUTO) 58.3 % (42.2-75.2); PLATELET COUNT 188 10^3/uL (140-440); RED BLOOD COUNT 5.07 10^6/ul (4.70-6.10); WHITE BLOOD COUNT 8.74 K/ul (4.2-10.2)
[2020-06-02] MEDS: LASIX IVP SCH (06:13)
[2020-06-02 06:25] LABS: ALANINE AMINOTRANSFERASE 7.1 U/L (0-50); ALBUMIN 3.57 g/dL (3.5-5.0); ALKALINE PHOSPHATASE 98.1 U/L (56-119); ASPARTATE AMINO TRANSFERASE 22.9 U/L (17-59); BILIRUBIN,TOTAL 0.7 mg/dL (0.2-1.3); BLOOD UREA NITROGEN 15.2 mg/dL (9-20); CALCIUM 8.77 mg/dL (8.4-10.2); CHLORIDE 87.8 mmol/L (98-107); CREATININE 1.48 mg/dL (0.60-1.10); GLUCOSE 104.6 mg/dL (74-106); POTASSIUM 3.65 mmol/L (3.5-5.1); SODIUM 132.8 mmol/L (134.5-145); TOTAL PROTEIN 6.89 g/dL (6.3-8.2)
[2020-06-02] MEDS: ROCEPHIN 1 GM/50 ML D5W 1 GM/50 ML BAG IV SCH (08:58)
[2020-06-02] MEDS: LOTRISONE 45 GM TP SCH ×2 (08:58→20:08)
[2020-06-02] MEDS: LOPRESSOR PO SCH ×2 (08:59→20:07)
[2020-06-02] MEDS: ZETIA PO SCH (08:59)
[2020-06-02] MEDS: LIPITOR PO SCH (08:59)
[2020-06-02] MEDS: CATAPRES PO SCH ×2 (08:59→20:06)
[2020-06-02] MEDS: K-DUR PO SCH ×4 (08:59→20:07)
[2020-06-02] MEDS: PLAVIX PO SCH (09:00)
[2020-06-02] MEDS: MS CONTIN PO SCH ×2 (09:00→20:07)
[2020-06-02] MEDS: XANAX PO SCH ×3 (09:00→20:06)
[2020-06-02] MEDS: MIRALAX PO PRN ×2 (12:30→20:05)
[2020-06-02] MEDS: FLOMAX PO SCH (16:20)
[2020-06-02] MEDS: DESYREL PO SCH (20:06)
[2020-06-02] MEDS: NORVASC PO SCH (20:06)
[2020-06-02] MEDS: AMBIEN PO SCH (20:06)
[2020-06-02] MEDS: PAMELOR PO SCH (20:28)
[2020-06-03 05:03] LABS: BASOPHILS # (AUTO) 0.1 K/uL (0-0.2); BASOPHILS % (AUTO) 0.6 % (0.0-3.0); EOSINOPHILS # (AUTO) 0.3 K/ul (0.0-0.7); EOSINOPHILS % (AUTO) 3.1 % (0.0-7.0); HEMATOCRIT 44.1 % (42.0-52.0); HEMOGLOBIN 14.4 g/dl (14.0-18.0); IMMATURE GRANULOCYTE % (AUTO) 0.4 % (0.0-5.0); LYMPHOCYTES # (AUTO) 2.2 K/uL (0.60-3.4); LYMPHOCYTES % (AUTO) 22.6 (10.0-50.0); MEAN CORPUSCULAR HEMOGLOBIN 28.3 pg (27.0-31.0); MEAN CORPUSCULAR HGB CONC 32.7 (31.8-35.4); MEAN CORPUSCULAR VOLUME 86.8 fl (80.0-94.0); MONOCYTES # (AUTO) 0.7 K/uL (0.4-2.0); NEUTROPHILS # (AUTO) 6.6 K/ul (2.0-6.9); NEUTROPHILS % (AUTO) 66.3 % (42.2-75.2); PLATELET COUNT 174 10^3/uL (140-440); RDW COEFFICIENT OF VARIATION 13.6 % (11.6-14.8); RED BLOOD COUNT 5.08 10^6/ul (4.70-6.10); WHITE BLOOD COUNT 9.89 K/ul (4.2-10.2)
[2020-06-03] MEDS: OXYCODONE PO PRN ×4 (05:07→21:43)
[2020-06-03 05:16] LABS: ALANINE AMINOTRANSFERASE 7.9 U/L (0-50); ALBUMIN 3.42 g/dL (3.5-5.0); ALKALINE PHOSPHATASE 97.7 U/L (56-119); ASPARTATE AMINO TRANSFERASE 25.7 U/L (17-59); BILIRUBIN,TOTAL 0.55 mg/dL (0.2-1.3); BLOOD UREA NITROGEN 17.4 mg/dL (9-20); CALCIUM 8.68 mg/dL (8.4-10.2); CHLORIDE 88.5 mmol/L (98-107); CREATININE 1.46 mg/dL (0.60-1.10); GLUCOSE 104.1 mg/dL (74-106); POTASSIUM 3.76 mmol/L (3.5-5.1); SODIUM 131.3 mmol/L (134.5-145); TOTAL PROTEIN 6.77 g/dL (6.3-8.2)
[2020-06-03] MEDS: VENTOLIN HFA (PER PUFF-WITH SPACER) IH SCH ×3 (05:19→19:45)
[2020-06-03 05:22] LABS: CARBON DIOXIDE 37.9 mmol/L (22-30.0)
[2020-06-03] MEDS: PRILOSEC PO SCH (05:35)
[2020-06-03] MEDS: LASIX IVP SCH (05:56)
[2020-06-03] MEDS: XANAX PO SCH ×3 (09:07→20:17)
[2020-06-03] MEDS: ZAROXOLYN PO SCH (09:07)
[2020-06-03] MEDS: LIPITOR PO SCH (09:07)
[2020-06-03] MEDS: CATAPRES PO SCH ×2 (09:07→20:17)
[2020-06-03] MEDS: LOPRESSOR PO SCH ×2 (09:07→20:16)
[2020-06-03] MEDS: PLAVIX PO SCH (09:07)
[2020-06-03] MEDS: K-DUR PO SCH ×4 (09:07→20:17)
[2020-06-03] MEDS: MS CONTIN PO SCH ×2 (09:08→20:17)
[2020-06-03] MEDS: ZETIA PO SCH (09:08)
[2020-06-03] MEDS: LOTRISONE 45 GM TP SCH ×2 (09:08→20:18)
--- NOTE | 2020-06-03 10:40 | PN ---
DATE OF SERVICE: 06/01/2020 SUBJECTIVE: 59 year old white male hospitalized with bilateral leg edema with possibility of cellulitis in one of them at least. His condition has improved. He has puckering of the skin with trace to maybe +1 pitting edema which used to be +3 with fluid oozing out of it. The patient has been on IV antibiotics, IV Lasix and leg elevation. The patient's kidney functions have probably stayed the same with no evidence of any excessive diuresis judging from kidney functions. The patient is feeling a lot better. He is on potassium supplements but the Potassium has stayed 3.3. REVIEW OF SYSTEMS: CONSTITUTIONAL: No night sweats. No fatigue, malaise, lethargy. No fever or chills. HEENT: Eyes: No visual changes. No eye pain. No eye discharge. ENT: No runny nose. No epistaxis. No sinus pain. No sore throat. No odynophagia. No congestion. RESPIRATORY: No cough, no congestion. No hemoptysis. No shortness of breath. CARDIOVASCULAR: No angina symptoms. No CHF symptoms. No atypical chest pain for CAD. No palpitations. No PND. No orthopnea. GASTROINTESTINAL: No abdominal pain. No nausea or vomiting. No diarrhea or constipation. No hematemesis. No hematochezia. GENITOURINARY: No urgency. No frequency. No dysuria. No hematuria. No obstructive symptoms. No discharge. No pain. No significant abnormal bleeding. MUSCULOSKELETAL: No musculoskeletal pain; no joint swelling. A little tender spot 1/2cm in diameter on the sole, left. No evidence of any evidence of infection or drainage. Doing x-ray to rule out any pain. NEUROLOGICAL: No headache. No neck pain. No syncope. No seizures. No dizziness. PSYCHIATRIC: Not anxious. No depression. No suicidal thoughts. No homicidal thoughts. SKIN: No rash. No lesions. No wounds. ENDOCRINE: No unexplained weight loss. No weight gain. HEMATOLOGIC/LYMPHATIC: No anemia. No purpura. No petechiae. No prolonged or excessive bleeding. No palpable lymph nodes. PHYSICAL EXAMINATION: VITAL SIGNS: Temperature 97.9, pulse 70, respiratory rate 16, blood pressure 136/78 and pulse ox 92%. HEENT: Head normocephalic, atraumatic. Eyes: Extraocular muscles are intact. Pupils are equal, round and reactive to light and accommodation. Ears: No lesions. Nose appeared normal. Throat: No exudate or erythema. NECK: Supple. No JVD, no carotid bruit. No lymphadenopathy or thyromegaly. LUNGS:Decreased breath sounds but clear to auscultation. Percussion note normal. Chest symmetrical. HEART: S1, S2, no S3. No murmurs. No cyanosis or clubbing. No ascites. Pulses: Dorsalis pedis and posterior tibial pulses +1 to +2 bilaterally. ABDOMEN: Soft. Nontender. Bowel sounds active. No CVA tenderness. No mass felt. EXTREMITIES: Puckered skin. Trace to +1 pitting edema. No evidence of any infection or drainage. Full range of motion of all extremities, equal. NEUROLOGIC: No focal deficit. Cranial nerves II through XII are grossly intact. No headache. No double vision. SKIN: Not dry. Intact. Turgor - normal. LYMPHATIC: No palpable lymph nodes/no lymphedema. MUSCULOSKELETAL: Normal joints with no swelling. Muscle tone is normal. LABS: Hgb 14.7, hct 46, WBC 9,400 normal differential, creatinine 1.3, BUN 13, potassium 3.3. ASSESSMENT: 1. Bilateral leg edema, pitting as well as nonpitting with possibility of cellulitis seems to be resolving nicely. 2. Spot on the left heel is tender could have been the patient stepped on some nail or object. We will x-ray of the foot. 3. Hypokalemia 4. Hypertension 5. Chronic kidney disease 6. Obesity PLAN: 1. Advised the patient to lose weight 2. DASH diet discussed 3. Low salt diet discussed 4. Elevate the legs at the time when he is watching TV or at night, higher than the head 5. Continue to take all the medications on regular basis 6. Not to keep legs hanging for a long time 7. The patient is noncompliant of lifestyle, diet, recommendations. 8. He is to continue IV Lasix and Antibiotics Overall outlook on life is not good. His chronically in pain but not really depressed, suicidal or homicidal. TIME SPENT: More than 30 minutes. Plan and coordination of the patient's care discussed in the presence of nurse. REENA
--- NOTE | 2020-06-03 10:50 | RS.PTINEVL ---
Subjective - Patient information Date of Evaluation: 06/04/20 Date of Arrival on Unit: 05/30/20 Admitted From:: Home Diagnosis: BLE edema with cellulitis Usual Living Arrangement: With Spouse Home Environment: House, Stairs (few), Rail Medical History: Hypertension, CVA/TIA, COPD, Arthritis Medical History Comments:: DDD, [place], CAD LATEX ALLERGY?: No Surgical History: Lumbar Spine, Cholecystectomy Surgical History Comments:: coronary stent Medications: see chart Subjective Information/ Patient Comments:: pt states that he will try to get up out of bed and take a few steps with PT. - Level of function Prior to this admission, the patient could do the following:: Independent Selfcare, Independent ADL's, Independent Ambulation Current Level of Function: Partially Dependent Current Equipment Used at Home: cane most of the time, does have a walker Pain Assessement - Location L foot Description: Sharp, Acute Pain Behavior: Guarding, Facial Grimacing Pain Aggravating Factors: Standing, Walking Pain Alleviating Factors: Medication Interventions - Objective Patient Orientation: Person, Place, Time, Situation Current Interventions: IV's, Oxygen (2 liters), Telemetry Observation: pt with edema BLE as well as discoloration due to vascular insufficency. well as significant thoracic kyphosis, forward head Range of Motion - ROM Right Upper Extremity AROM: WFL's Left Upper Extremity AROM: WFL's Right Lower Extremity AROM: WFL's Left Lower Extremity AROM: WFL's Muscle Strength - Muscle Strength Right Upper Extremity Strength: Mild Weakness (grossly 4/5) Left Upper Extremity Strength: Mild Weakness (grossly 4/5) Right Lower Extremity Strength: Mild Weakness (hip flex 4-/5, knee flex/ext 4/5, ankle DF/PF 4/5) Left Lower Extremity Strength: Mild Weakness (hip flex 4-/5, knee flex/ext 4/5, ankle DF/PF 4-/5) Sensation - Sensation Right Upper Extremity Sensation: Intact/Normal Left Upper Extremity Sensation: Intact/Normal Right Lower Extremity Sensation: Impaired Left Lower Extremity Sensation: Impaired Palpation Palpation Findings: Tenderness (very tender to palpation in BLE especially plantar surface of L foot) Balance - Sitting Balance and Reactions Static Sitting Balance: Good Dynamic Sitting Balance: Good - Standing Balance and Reactions Static Standing Balance: Fair Dynamic Standing Balance: Poor Standing Equilibrium Reactions: Delayed Left, Delayed Right Standing Protective Reactions: Delayed Left, Delayed Right Functional Mobility - Bed Mobility Rolling R/L: Independent (with bedrails) Supine to Sit: Supervision Sit to Supine: Supervision - Transfers Sit to Stand: Supervision Stand to Sit: Supervision - Safety Awareness Safety Awareness: Fair JASON INDEX SCORE: n/a Ambulation - Ambulation Assistive Device Used: Rolling Walker Orthotic/Prosthetic Device: No Distance: 20ft Assistance needed with Ambulation: CGA Gait Deviations: Wide Based gait, Forward posture, Short stride Ambulation Comments: pt amb with decreased step length, flexed posture, forward head Factors Affecting Ambulation: Decreased Balance, Breathing/O2 Saturation, Pain, Weakness, Decreased Coordination, Dizziness Treatment time - Time with patient Length of Evaluation: 18 Total treatment time: 31 Patient Education - Education Patient Education: Activity Modification, Education of Plan of Care Teaching Recipient: Patient Teaching Methods: Discussion, Demonstration Comments: discussion regarding benefits for ex to decrease pain in L LE. Assessment - Assessment Problem List:: Decreased level of function, Requires training/education, Decreased safety/Risk of falls, Weakness, Pain limits previous level of function Rehab Potential: Fair Further Therapy Indicated?: Yes Candidate for Swing Bed for Therapy Services?: Feel pt would not be a candidate for swing bed for therapy due to being inconsistant with compliance with activity, and pt is at higher functional level. Evaluation Complexity: HISTORY: Medium, EXAM OF BODY SYSTEMS: Medium, CLINICAL PRESENTATION: Medium, CLINICAL DECISION MAKING: Medium Patient's Goal(s): Return home as independent as possible Short Term Goals GOAL #1: pt demonstrate independence with all bed mobility Goal to be met by: 06/05/20 GOAL #2: Transfer sup to/from sit independently Goal to be met by: 06/05/20 GOAL #3: Sit to/from stand independently Goal to be met by: 06/05/20 GOAL #4: pt amb with rwx 50ft with CGA able to put foot flat on floor. Goal to be met by: 06/05/20 GOAL #5: Improve LE strength 4 to 4+/5 Goal to be met by: 06/05/20 Arabic Translator Goals GOAL #1: pt amb functional household distance with least AD independently Goal to be met by: 06/07/20 GOAL #2: Improve dyn stand balance fair- Goal to be met by: 06/07/20 GOAL #3: pt demonstrate knowledge of HEP Goal to be met by: 06/07/20 Plan Plan of Care: Therapeutic EX, Self-Care/Home Management Modalities: Hot Pack Frequency of Treatment: 1-2 X day, as tolerated Duration of Treatment: 4-5 days Anticipated Discharge Destination: Home Treatment Diagnosis (ICD 10 Codes): L heel pain. BLE edema. difficulty walking R 26.2. balance impaired R 26.81. weakness M 62.81 Has the Physician been added for Co-signature?: Yes
--- NOTE | 2020-06-03 11:14 | PN ---
DATE OF SERVICE: 06/02/2020 SUBJECTIVE: 59 year old white male hospitalized with bilateral leg edema, possible cellulitis. The leg edema has practically resolved with maybe trace edema, no infection has been noted. The patient's left heel problem shows spur no foreign body. The patient's otherwise hypokalemia seems to have resolved with Potassium supplements. REVIEW OF SYSTEMS: CONSTITUTIONAL: No night sweats. No fatigue, malaise, lethargy. No fever or chills. HEENT: Eyes: No visual changes. No eye pain. No eye discharge. ENT: No runny nose. No epistaxis. No sinus pain. No sore throat. No odynophagia. No congestion. RESPIRATORY: No cough, no congestion. No hemoptysis. No shortness of breath. CARDIOVASCULAR: No angina symptoms. No CHF symptoms. No atypical chest pain for CAD. No palpitations. No PND. No orthopnea. GASTROINTESTINAL: No abdominal pain. No nausea or vomiting. No diarrhea or constipation. No hematemesis. No hematochezia. GENITOURINARY: No urgency. No frequency. No dysuria. No hematuria. No obstructive symptoms. No discharge. No pain. No significant abnormal bleeding. MUSCULOSKELETAL: No musculoskeletal pain; no joint swelling. Generalized osteoarthritis. NEUROLOGICAL: No headache. No neck pain. No syncope. No seizures. No dizziness. PSYCHIATRIC: Not anxious. No depression. No suicidal thoughts. No homicidal thoughts. SKIN: No rash. No lesions. No wounds. ENDOCRINE: No unexplained weight loss. No weight gain. HEMATOLOGIC/LYMPHATIC: No anemia. No purpura. No petechiae. No prolonged or excessive bleeding. No palpable lymph nodes. PHYSICAL EXAMINATION: VITAL SIGNS: Temperature 96.8, pulse 53, respiratory rate 18, blood pressure 109/65 and pulse ox 93%. HEENT: Head normocephalic, atraumatic. Eyes: Extraocular muscles are intact. Pupils are equal, round and reactive to light and accommodation. Ears: No lesions. Nose appeared normal. Throat: No exudate or erythema. NECK: Supple. No JVD, no carotid bruit. No lymphadenopathy or thyromegaly. LUNGS: Decreased breath sounds but clear to auscultation. Percussion note normal. Chest symmetrical. HEART: S1, S2, no S3. No murmurs. No cyanosis or clubbing. No ascites. Pulses: Dorsalis pedis and posterior tibial pulses +1 to +2 bilaterally. ABDOMEN: Soft. Nontender. Bowel sounds active. No CVA tenderness. No mass felt. EXTREMITIES: Both lower extremities practically no swelling. No infections. Full range of motion of all extremities, equal. NEUROLOGIC: No focal deficit. Cranial nerves II through XII are grossly intact. No headache. No double vision. SKIN: Not dry. Intact. Turgor - normal. LYMPHATIC: No palpable lymph nodes/no lymphedema. MUSCULOSKELETAL: Normal joints with no swelling. Muscle tone is normal. LABS: Hgb 14.4, hct 44, WBC 8,700 normal differential, creatinine 1.4, BUN 15, potassium 3.6. ASSESSMENT: 1. Bilateral leg edema with possible cellulitis, all resolved 2. Generalized osteoarthritis 3. Hypertension 4. Chronic kidney disease 5. Dyslipidemia 6. Sedentary lifestyle 7. Obesity PLAN: 1. Advised to lose weight 2. Keep the legs elevated 3. Cut down on salt intake 4. DASH diet discussed 5. Continue to take all the medications on regular basis 6. Lotrisone cream on both legs CONDITION: Stable. 2. 3. TIME SPENT: More than 30 minutes. Plan and coordination of the patient's care discussed in the presence of nurse. REENA
[2020-06-03] MEDS: CLEOCIN PO SCH ×2 (13:25→20:16)
[2020-06-03] MEDS: FLOMAX PO SCH (17:19)
[2020-06-03] MEDS: AMBIEN PO SCH (20:15)
[2020-06-03] MEDS: DESYREL PO SCH (20:16)
[2020-06-03] MEDS: PAMELOR PO SCH (20:16)
[2020-06-03] MEDS: NORVASC PO SCH (20:16)
[2020-06-03] MEDS: MIRALAX PO PRN (20:31)
[2020-06-04] MEDS: CLEOCIN PO SCH ×2 (04:17→13:59)
[2020-06-04] MEDS: OXYCODONE PO PRN ×3 (04:17→14:09)
[2020-06-04] MEDS: VENTOLIN HFA (PER PUFF-WITH SPACER) IH SCH ×2 (05:00→13:48)
[2020-06-04 05:23] LABS: BASOPHILS # (AUTO) 0.1 K/uL (0-0.2); BASOPHILS % (AUTO) 0.8 % (0.0-3.0); EOSINOPHILS # (AUTO) 0.4 K/ul (0.0-0.7); HEMATOCRIT 42.3 % (42.0-52.0); IMMATURE GRANULOCYTE % (AUTO) 0.3 % (0.0-5.0); LYMPHOCYTES # (AUTO) 2.3 K/uL (0.60-3.4); LYMPHOCYTES % (AUTO) 25.4 (10.0-50.0); MEAN CORPUSCULAR HEMOGLOBIN 28.6 pg (27.0-31.0); MEAN CORPUSCULAR HGB CONC 33.1 (31.8-35.4); MEAN CORPUSCULAR VOLUME 86.3 fl (80.0-94.0); MONOCYTES # (AUTO) 0.8 K/uL (0.4-2.0); MONOCYTES % (AUTO) 9.2 (0-10); NEUTROPHILS # (AUTO) 5.5 K/ul (2.0-6.9); NEUTROPHILS % (AUTO) 60.3 % (42.2-75.2); PLATELET COUNT 162 10^3/uL (140-440); RDW COEFFICIENT OF VARIATION 13.4 % (11.6-14.8); WHITE BLOOD COUNT 9.06 K/ul (4.2-10.2)
[2020-06-04 05:40] LABS: ALANINE AMINOTRANSFERASE 7.7 U/L (0-50); ALBUMIN 3.42 g/dL (3.5-5.0); ALKALINE PHOSPHATASE 95.1 U/L (56-119); ASPARTATE AMINO TRANSFERASE 23.1 U/L (17-59); BILIRUBIN,TOTAL 0.63 mg/dL (0.2-1.3); CALCIUM 8.83 mg/dL (8.4-10.2); CHLORIDE 84.1 mmol/L (98-107); CREATININE 1.56 mg/dL (0.60-1.10); GLUCOSE 98.3 mg/dL (74-106); POTASSIUM 3.35 mmol/L (3.5-5.1); SODIUM 129.4 mmol/L (134.5-145); TOTAL PROTEIN 6.68 g/dL (6.3-8.2)
[2020-06-04 05:48] LABS: CARBON DIOXIDE 41.8 mmol/L (22-30.0)
[2020-06-04] MEDS: PRILOSEC PO SCH (05:52)
[2020-06-04] MEDS: LASIX IVP SCH (05:52)
[2020-06-04 06:12] VITALS: BP 107/68; TEMP 97.9
[2020-06-04] MEDS: ZETIA PO SCH (09:08)
[2020-06-04] MEDS: XANAX PO SCH ×2 (09:08→14:09)
[2020-06-04] MEDS: K-DUR PO SCH ×2 (09:08→12:12)
[2020-06-04] MEDS: MS CONTIN PO SCH (09:09)
[2020-06-04] MEDS: LIPITOR PO SCH (09:09)
[2020-06-04] MEDS: MIRALAX PO PRN (09:09)
[2020-06-04] MEDS: PLAVIX PO SCH (09:09)
[2020-06-04] MEDS: CATAPRES PO SCH (09:09)
[2020-06-04] MEDS: LOPRESSOR PO SCH (09:09)
[2020-06-04] MEDS: LOTRISONE 45 GM TP SCH (09:10)
[2020-06-04] MEDS ORDERED: GLYCERIN SUPPOSITORY RC STA (12:05)
--- NOTE | 2020-06-06 10:38 | PN ---
DATE OF SERVICE: 06/03/20 SUBJECTIVE: 59-year-old white male hospitalized with bilateral leg edema, possible cellulitis is being treated with Rocephin. Clinically, the patient has responded very well. Potassium now is normal. Kidney functions are stable. Practically the edema has resolved, some mild drainage on the left medial aspect, almost clear drainage, no pus, no evidence of any infection. The patient has chronic dermatitis from chronic swelling of both lower extremities. The patient's other medical conditions are stable. The patient is noncompliant of diet, obese, sedentary lifestyle, unable to do too many things except for maybe activity of daily living because of the patient's severe generalized osteoarthritis. He has been seen by Pain Management, back surgeons, et cetera. REVIEW OF SYSTEMS: CONSTITUTIONAL: No night sweats. No fatigue, malaise, lethargy. No fever or chills. HEENT: Eyes: No visual changes. No eye pain. No eye discharge. ENT: No runny nose. No epistaxis. No sinus pain. No sore throat. No odynophagia. No congestion. RESPIRATORY: No cough, no congestion. No hemoptysis. No shortness of breath. CARDIOVASCULAR: No angina symptoms. No CHF symptoms. No atypical chest pain for CAD. No palpitations. No PND. No orthopnea. GASTROINTESTINAL: No abdominal pain. No nausea or vomiting. No diarrhea or constipation. No hematemesis. No hematochezia. GENITOURINARY: No urgency. No frequency. No dysuria. No hematuria. No obstructive symptoms. No discharge. No pain. No significant abnormal bleeding. MUSCULOSKELETAL: No musculoskeletal pain; no joint swelling. NEUROLOGICAL: No headache. No neck pain. No syncope. No seizures. No dizziness. PSYCHIATRIC: Not anxious. No depression. No suicidal thoughts. No homicidal thoughts. SKIN: No rash. No lesions. No wounds. ENDOCRINE: No unexplained weight loss. No weight gain. HEMATOLOGIC/LYMPHATIC: No anemia. No purpura. No petechiae. No prolonged or excessive bleeding. No palpable lymph nodes. PHYSICAL EXAMINATION: VITAL SIGNS: Temperature 97.6, pulse 55, respiratory rate 18, blood pressure 104/60, pulse ox 94%. HEENT: Head normocephalic, atraumatic. Eyes: Extraocular muscles are intact. Pupils are equal, round and reactive to light and accommodation. Ears: No lesions. Nose appeared normal. Throat: No exudate or erythema. NECK: Supple. No JVD, no carotid bruit. No lymphadenopathy or thyromegaly. LUNGS: Decreased breath sounds but clear to auscultation. Percussion note normal. Chest symmetrical. HEART: S1, S2, no S3. No murmurs. No cyanosis or clubbing. No ascites. Pulses: Dorsalis pedis and posterior tibial pulses +1 to +2 bilaterally. ABDOMEN: Soft. Nontender. Bowel sounds active. No CVA tenderness. No mass felt. EXTREMITIES: Trace edema. Full range of motion of all extremities, equal. NEUROLOGIC: No focal deficit. Cranial nerves II through XII are grossly intact. No headache. No double vision. SKIN: Not dry. Intact. Turgor - normal. LYMPHATIC: No palpable lymph nodes/no lymphedema. MUSCULOSKELETAL: Normal joints with no swelling. Muscle tone is normal. ASSESSMENT: 1. No evidence of real active infection 2. Cellulitis, chronic present which has healed up really nicely with resolution of edema that was present on admission +2 to +3 which is probably under control, grew Strep Pneumoniae sensitive to a lot of antibiotics. The wounds were not checked out against it. In any case, the patient has responded to Rocephin. PLAN: 1. Will discontinue Rocephin for now and put him on Clindamycin p.o. 2. Will discharge the patient home tomorrow. 3. Elevate the legs. 4. Advised to cut down on salt. 5. DASH diet discussed. 6. Advised to lose weight. Diet discussed. 7. Will put him on Clindamycin for another 5 to 6 days after discharge. CONDITION: Stable. TIME SPENT: More than 30 minutes. Plan and coordination of the patient's care discussed in the presence of nurse. REENA
--- NOTE | 2020-06-06 10:55 | PN ---
DATE OF SERVICE: 06/04/20 SUBJECTIVE: The patient was seen and examined this morning. The patient's condition is stable. His edema practically has resolved. The skin is smooth but the pigmentation persists from chronic edema and hemosideran deposition. The patient has no evidence of any discharge anymore from the sores that were present on admission. The patient is going to see a fast food worker for left heel problems. REVIEW OF SYSTEMS: CONSTITUTIONAL: No night sweats. No fatigue, malaise, lethargy. No fever or chills. HEENT: Eyes: No visual changes. No eye pain. No eye discharge. ENT: No runny nose. No epistaxis. No sinus pain. No sore throat. No odynophagia. No congestion. RESPIRATORY: No cough, no congestion. No hemoptysis. No shortness of breath. CARDIOVASCULAR: No angina symptoms. No CHF symptoms. No atypical chest pain for CAD. No palpitations. No PND. No orthopnea. GASTROINTESTINAL: No abdominal pain. No nausea or vomiting. No diarrhea or constipation. No hematemesis. No hematochezia. GENITOURINARY: No urgency. No frequency. No dysuria. No hematuria. No obstructive symptoms. No discharge. No pain. No significant abnormal bleeding. MUSCULOSKELETAL: The patient has generalized aches and pains all over including his spine. He is practically unable to walk because of this, bedridden. The patient also has a BMI of 33. NEUROLOGICAL: No headache. No neck pain. No syncope. No seizures. No dizziness. PSYCHIATRIC: Not anxious. No depression. No suicidal thoughts. No homicidal thoughts. SKIN: No rash. No lesions. No wounds. ENDOCRINE: No unexplained weight loss. No weight gain. HEMATOLOGIC/LYMPHATIC: No anemia. No purpura. No petechiae. No prolonged or excessive bleeding. No palpable lymph nodes. PHYSICAL EXAMINATION: HEENT: Head normocephalic, atraumatic. Eyes: Extraocular muscles are intact. Pupils are equal, round and reactive to light and accommodation. Ears: No lesions. Nose appeared normal. Throat: No exudate or erythema. NECK: Supple. No JVD, no carotid bruit. No lymphadenopathy or thyromegaly. LUNGS: Decreased breath sounds but clear to auscultation. Percussion note normal. Chest symmetrical. HEART: S1, S2, no S3. No murmurs. No cyanosis or clubbing. No ascites. Trace edema. Pulses: Dorsalis pedis and posterior tibial pulses +1 bilaterally. ABDOMEN: Soft. Nontender. Bowel sounds active. No CVA tenderness. No mass felt. No ascites. EXTREMITIES: Chronic edema but no evidence of infection. Pigmentation present in both lower extremities. Full range of motion of all extremities, equal. NEUROLOGIC: No focal deficit. Cranial nerves II through XII are grossly intact. No headache. No double vision. SKIN: Not dry. Intact. Turgor - normal. LYMPHATIC: No palpable lymph nodes/no lymphedema. MUSCULOSKELETAL: Normal joints with no swelling. Muscle tone is normal. ASSESSMENT: 1. Bilateral leg edema with cellulitis, seems to have resolved. 2. Hypokalemia, still borderline. PLAN: 1. Restart the Aldactone which should help him increase the potassium supplement to 20 mEq twice a day. 2. The patient is to be continued on Lasix and Zaroxolyn as before, the rest of his antihypertensive medication is the same as before. Continue his pain medications. 3. He is advised to continue his followup with neurologist. 4. During the hospital stay the patient was treated with Rocephin and later on switched to Clindamycin to be taken for 5 days. CONDITION: Stable. TIME SPENT: More than 30 minutes. Plan and coordination of the patient's care discussed in the presence of nurse. REENA
--- NOTE | 2020-06-06 11:48 | DS ---
DATE OF SERVICE: 06/04/20 FINAL DIAGNOSIS: 1. BILATERAL LEG EDEMA 2. BILATERAL LEG CELLULITIS 3. HYPERTENSION HX: 4. COPD WITH O2 AT NIGHT 5. NH 6. MIGRAINES 7. CHRONIC RETINAL DETACHMENT- DR. SANTOS 8. CHRONIC BACK PAIN 9. HYPERGLYCEMIA 10. LEG EDEMA 11. CHRONIC BRONCHITIS 12. SMALL STROKES - DR. SANTOS 13. RIGHT RENAL ARTEY STENTS, 2006 14. SMOKING 15. CHRONIC KIDNEY DISEASE STAGE 3 16. NON-COMPLIANCE WITH DIET, LIFESTYLE AND MEDS 17. CVA-DR. SANTOS 18. HYPERTENSION 19. B12 DEFICIENCY 20. DYSLIPIDEMIA 21. DEPRESSION 22. L-SPINE SURGERY 2000- DR. LAW 23. SLEEP APNEA - 24. INSOMNIA 25. CAD SURGERIES: 26. BACK SURGERY - 1999 29. RENAL ARTERY STENT - 2000,2002, AND 2006 30. GALLBLADDER - 2003 31. HERNIA - 2003 LAST VITALS Temp Pulse Resp BP Pulse Ox 97.9 F 54 L 20 107/68 96 06/04/20 06:00 06/04/20 08:00 06/04/20 08:00 06/04/20 06:00 06/04/20 10:00 DISCHARGE INSTRUCTIONS: 1. DISCHARGE HOME: 06/04/2020 RETURN HOME WITH SPOUSE, CHILDREN AND GRANDCHILDREN. 2. MD FOLLOW - UP: SEE DR. DE LA PAZ/ SOLANGE GONZALES APRN/ TAMMY DUGGAN APRN IN THE OFFICE, CALL FOR APPOINTMENT TO BE SEEN IN OFFICE 7 DAYS AFTER DISCHARGE. 3. DR. SANTOS, NEUROLOGIST, FOLLOW UP JUNE 10, 2020 @ 1:15 PM AND TO FOLLOW PANDEMIC GUIDELINES. 4. DR. GREGG'S( OCCUPATIONAL MEDICINE OFFICER) OFFICE TO CALL WITH AN APPOINTMENT, [phone], F/U REGARDING CALLOUS AREA TO POSTERIOR 2D ECHO OUTPATIENT AT [facility], WILL CALL WITH TIME. 5. HOME O2 HAS BEEN PROVIDED FROM [facility]. 6. ELEVATE LEGS: KEEP LEGS ELEVATED ABOVE HEART DURING DAY AND NIGHT. MEDICATIONS AT DISCHARGE: Alprazolam (Alprazolam 0.5 Mg Tablet) 0.5 mg PO TID [facility] Last Admin: 06/04/20 09:08 Dose: 0.5 mg Documented by: Amlodipine Besylate (Amlodipine Besylate 5 Mg Tablet) 5 mg PO BEDTIME [facility] Last Admin: 06/03/20 20:16 Dose: 5 mg Documented by: Atorvastatin Calcium (Atorvastatin Calcium 20 Mg Tablet) 40 mg PO DAILY [facility] Last Admin: 06/04/20 09:09 Dose: 40 mg Documented by: Clindamycin HCl (Clindamycin Hcl 150 Mg Capsule) 300 mg PO Q8HR [facility] X 5 MORE DAYS -- ( NEW) Stop: 06/06/20 12:59 Last Admin: 06/04/20 04:17 Dose: 300 mg Documented by: Clonidine (Clonidine Hcl 0.1 Mg Tablet) 0.2 mg PO BID [facility] Last Admin: 06/04/20 09:09 Dose: 0.2 mg Documented by: Clopidogrel Bisulfate (Clopidogrel Bisulfate 75 Mg Tablet) 75 mg PO DAILY [facility] Last Admin: 06/04/20 09:09 Dose: 75 mg Documented by: Clotrimazole (Clotrimazole/Betamethasone 45 Gm Cream) 1 applic TP BID [facility] -- ( NEW) Last Admin: 06/04/20 09:10 Dose: 1 applic Documented by: Ezetimibe (Ezetimibe 10 Mg Tablet) 10 mg PO DAILY [facility] Last Admin: 06/04/20 09:08 Dose: 10 mg Documented by: Furosemide 40 mg PO QDAC [facility] Last Admin: 06/04/20 05:52 Dose: 40 mg Documented by: Metolazone (Metolazone 2.5 Mg Tablet) 2.5 mg PO MoWeFr [facility] Last Admin: 06/03/20 09:07 Dose: 2.5 mg Documented by: Metoprolol Tartrate (Metoprolol Tartrate 50 Mg Tablet) 50 mg PO BID [facility] Last Admin: 06/04/20 09:09 Dose: 50 mg Documented by: Morphine Sulfate (Morphine Sulfate 15 Mg Tablet.Er) 15 mg PO Q12HR [facility] Last Admin: 06/04/20 09:09 Dose: 15 mg Documented by: Nitroglycerin (Nitroglycerin 0.4 Mg Tab.Subl) 0.4 mg SL Q5MIN X 3 DOSES PRN PRN Reason: Chest Pain Nortriptyline HCl (Nortriptyline Hcl 10 Mg Capsule) 50 mg PO BEDTIME [facility] Last Admin: 06/03/20 20:16 Dose: 50 mg Documented by: Oxycodone HCl (Oxycodone Hcl 5 Mg Tablet) 30 mg PO Q4H PRN PRN Reason: Pain Last Admin: 06/04/20 09:58 Dose: 30 mg Documented by: Polyethylene Glycol (Polyethylene Glycol 17 Gm Powd.Pack) 17 gm PO BID PRN -- ( NEW) PRN Reason: Constipation Last Admin: 06/04/20 09:09 Dose: 17 gm Documented by: Potassium Chloride (Potassium Chloride 20 Meq Tab) 20 meq PO DAILY [facility] Last Admin: 06/04/20 12:12 Dose: 20 meq Documented by: Tamsulosin HCl (Tamsulosin Hcl 0.4 Mg Cap.Er.24h) 0.4 mg PO QPM [facility] Last Admin: 06/03/20 17:19 Dose: 0.4 mg Documented by: Trazodone HCl (Trazodone Hcl 50 Mg Tablet) 150 mg PO BEDTIME [facility] Last Admin: 06/03/20 20:16 Dose: 150 mg Documented by: Zolpidem Tartrate (Zolpidem Tartrate 5 Mg Tablet) 10 mg PO BEDTIME [facility] Last Admin: 06/03/20 20:15 Dose: 10 mg Documented by: PROTONIX 20 MG PO DAILY LEXAPRO 20 MG PO DAILY ASPIRIN 81 MG PO DAILY VIT B 12 1000 MCG IM MONTHLY ALDACTONE 25 MG PO DAILY ALBUTEROL SULFATE 1.25 MG INHALATION PER NEBULIZER TID NEW PRESCRIPTIONS: Clindamycin HCl 300 mg PO Q8HR [facility] X 5 MORE DAYS LOTRISONE (Clotrimazole/Betamethasone 45 Gm Cream) 1 applic TP BID MIRALAX (Polyethylene Glycol 17 Gm Powd.Pack) 17 gm PO BID IN 8 OZ PRN DISCONTINUED MEDICATIONS: NONE DIET INSTRUCTIONS: DECREASE SALT INTAKE ACTIVITY: INCREASE TOLERATED WITH FREQUENT REST PERIODS DISEASE SPECIFIC EDUCATION: EDEMA MANAGEMENT TO LEGS CELLULITIS HTN NARCOTIC USE FOLLOW UPS COVID 19/PANDEMIC PRECAUTIONS HOSPITAL COURSE: The patient was hospitalized with bilateral leg edema which was oozing along with some evidence of infection, superficial ulcers. The patient had +2 to +3 pitting edema initially. He was treated with IV Lasix. His legs were elevated, was put on low salt diet. The patient's edema improved within three to four days. His edema practically had subsided and the superficial ulcer practically resolved with puckering of the skin. There were some places that had some discharge coming out also healed up. At time of discharge the patient's cellulitis has practically resolved along with leg edema. He has dependent leg edema. The patient will undergo echocardiogram as an outpatient in a couple of weeks to evaluate LV function. The patient was continued on all the other medications as before. Aldactone was restarted along with Zaroxolyn two to three times a week along with daily Lasix. I strongly advised him to cut down on salt intake and elevate the legs while he is sitting at home higher than the hips to be done at night. The patient had no symptoms of CHF during the stay in the hospital but he gets short of breath on minimal exertion likely from sedentary lifestyle, chronic lung disease. The patient at time of discharge stable. Prognosis guarded. TIME SPENT: More than 60 minutes. MTDD
--- NOTE | 2020-06-06 11:50 | PN ---
BILLIN05/30/2020 ADMISSION DAY LEVEL 5 05/31/2020 INTERMEDIATE 06/01/2020 INTERMEDIATE 06/02/2020 INTERMEDIATE 06/03/2020 INTERMEDIATE 06/04/2020 FINAL DAY, D IN DISCHARGE MTDD
--- NOTE | 2020-06-06 13:17 | CM.DICTOOL ---
ADMISSION: 05/30/20 13:04 DISCHARGE: May DATE OF SERVICE: 06/04/20 FINAL DIAGNOSIS BILATERAL LEG EDEMA BILATERAL LEG CELLULITIS HYPERTENSION HX: COPD WITH O2 AT NIGHT [place] MIGRAINES CHRONIC RETINAL DETACHMENT- DR. SANTOS CHRONIC BACK PAIN HYPERGLYCEMIA LEG EDEMA CHRONIC BRONCHITIS SMALL STROKES - DR. SANTOS RIGHT RENAL ARTEY STENTS, 2006 SMOKING CHRONIC KIDNEY DISEASE STAGE 3 NON-COMPLIANCE WITH DIET, LIFESTYLE AND MEDS CVA-DR. SANTOS HYPERTENSION B 12 DEFIECIENCY DYSLIPIDEMIA DEPRESSION L-SPINE SURGERY 2000- DR. LAW SLEEP APNEA - 02 INSOMNIA CAD SURGERIES: BACK SURGERY - 1999 RENAL ARTERY STENT - 2000,2002, AND 2006 GALLBLADDER - 2003 HERNIA - 2003 LAST VITALS Temp Pulse Resp BP Pulse Ox 97.9 F 54 L 20 107/68 96 06/04/20 06:00 06/04/20 08:00 06/04/20 08:00 06/04/20 06:00 06/04/20 10:00 TAKE THESE MEDICATIONS AT HOME Alprazolam (Alprazolam 0.5 Mg Tablet) 0.5 mg PO TID [facility] Last Admin: 06/04/20 09:08 Dose: 0.5 mg Documented by: Amlodipine Besylate (Amlodipine Besylate 5 Mg Tablet) 5 mg PO BEDTIME [facility] Last Admin: 06/03/20 20:16 Dose: 5 mg Documented by: Atorvastatin Calcium (Atorvastatin Calcium 20 Mg Tablet) 40 mg PO DAILY [facility] Last Admin: 06/04/20 09:09 Dose: 40 mg Documented by: Clindamycin HCl (Clindamycin Hcl 150 Mg Capsule) 300 mg PO Q8HR [facility] X 5 MORE DAYS -- ( NEW) Stop: 06/06/20 12:59 Last Admin: 06/04/20 04:17 Dose: 300 mg Documented by: Clonidine (Clonidine Hcl 0.1 Mg Tablet) 0.2 mg PO BID [facility] Last Admin: 06/04/20 09:09 Dose: 0.2 mg Documented by: Clopidogrel Bisulfate (Clopidogrel Bisulfate 75 Mg Tablet) 75 mg PO DAILY [facility] Last Admin: 06/04/20 09:09 Dose: 75 mg Documented by: Clotrimazole (Clotrimazole/Betamethasone 45 Gm Cream) 1 applic TP BID [facility] -- ( NEW) Last Admin: 06/04/20 09:10 Dose: 1 applic Documented by: Ezetimibe (Ezetimibe 10 Mg Tablet) 10 mg PO DAILY [facility] Last Admin: 06/04/20 09:08 Dose: 10 mg Documented by: Furosemide 40 mg PO QDAC [facility] Last Admin: 06/04/20 05:52 Dose: 40 mg Documented by: Metolazone (Metolazone 2.5 Mg Tablet) 2.5 mg PO MoWeFr [facility] Last Admin: 06/03/20 09:07 Dose: 2.5 mg Documented by: Metoprolol Tartrate (Metoprolol Tartrate 50 Mg Tablet) 50 mg PO BID [facility] Last Admin: 06/04/20 09:09 Dose: 50 mg Documented by: Morphine Sulfate (Morphine Sulfate 15 Mg Tablet.Er) 15 mg PO Q12HR [facility] Last Admin: 06/04/20 09:09 Dose: 15 mg Documented by: Nitroglycerin (Nitroglycerin 0.4 Mg Tab.Subl) 0.4 mg SL Q5MIN X 3 DOSES PRN PRN Reason: Chest Pain Nortriptyline HCl (Nortriptyline Hcl 10 Mg Capsule) 50 mg PO BEDTIME [facility] Last Admin: 06/03/20 20:16 Dose: 50 mg Documented by: Oxycodone HCl (Oxycodone Hcl 5 Mg Tablet) 30 mg PO Q4H PRN PRN Reason: Pain Last Admin: 06/04/20 09:58 Dose: 30 mg Documented by: Polyethylene Glycol (Polyethylene Glycol 17 Gm Powd.Pack) 17 gm PO BID PRN -- ( NEW) PRN Reason: Constipation Last Admin: 06/04/20 09:09 Dose: 17 gm Documented by: Potassium Chloride (Potassium Chloride 20 Meq Tab) 20 meq PO DAILY [facility] Last Admin: 06/04/20 12:12 Dose: 20 meq Documented by: Tamsulosin HCl (Tamsulosin Hcl 0.4 Mg Cap.Er.24h) 0.4 mg PO QPM [facility] Last Admin: 06/03/20 17:19 Dose: 0.4 mg Documented by: Trazodone HCl (Trazodone Hcl 50 Mg Tablet) 150 mg PO BEDTIME [facility] Last Admin: 06/03/20 20:16 Dose: 150 mg Documented by: Zolpidem Tartrate (Zolpidem Tartrate 5 Mg Tablet) 10 mg PO BEDTIME [facility] Last Admin: 06/03/20 20:15 Dose: 10 mg Documented by: PROTONIX 20 MG PO DAILY LEXAPRO 20 MG PO DAILY ASPIRIN 81 MG PO DAILY VIT B 12 1000 MCG IM MONTHLY ALDACTONE 25 MG PO DAILY ALBUTEROL SULFATE 1.25 MG INHALATION PER NEBULIZER TID ALLERGIES lisinopril [From Zestril] Adverse Reaction (Severe, Verified 05/20/16 11:04) Swelling baclofen Adverse Reaction (Verified 05/20/16 10:57) Unknown DISCONTINUED MEDICATIONS NONE NEW PRESCRIPTIONS: Clindamycin HCl 300 mg PO Q8HR [facility] X 5 MORE DAYS LOTRISONE (Clotrimazole/Betamethasone 45 Gm Cream) 1 applic TP BID MIRALAX (Polyethylene Glycol 17 Gm Powd.Pack) 17 gm PO BID IN 8 OZ PRN DISEASE SPECIFIC EDUCATION: EDEMA MANAGEMENT TO LEGS CELLULITIS HTN NORCOTIC USE MD FOLLOW UPS COVID 19/PANDEMIC PRECAUTIONS LAB REVIEW: 06/04/20 05:12 06/04/20 05:12 06/04/20 05:12: Sodium 129.4 L, Potassium 3.35 L, Chloride 84.1 L, Carbon Dioxide 41.8 H*, Anion Gap 6.85, BUN 20.0, Creatinine 1.56 H, Estimated GFR (MDRD) 45.00, BUN/Creatinine Ratio 12.82, Glucose 98.3, Calcium 8.83, Total Bilirubin 0.63, AST 23.1, ALT 7.7, Alkaline Phosphatase 95.1, Total Protein 6.68, Albumin 3.42 L, Globulin 3.26, Albumin/Globulin Ratio 1.04 06/04/20 05:12: WBC 9.06, RBC 4.90, Hgb 14.0, Hct 42.3, MCV 86.3, MCH 28.6, MCHC 33.1, RDW Coeff of Lety 13.4, Plt Count 162, Immature Gran % (Auto) 0.3, Neut % (Auto) 60.3, Lymph % (Auto) 25.4, [place] % (Auto) 9.2, Eos % (Auto) 4.0, Baso % (Auto) 0.8, Neut # (Auto) 5.5, Lymph # (Auto) 2.3, [place] # (Auto) 0.8, Eos # (Auto) 0.4, Baso # (Auto) 0.1, Immature Gran # (Auto) 0.0 PLAN: DISCHARGE HOME: 06/04/2020 RETURN HOME WITH SPOUSE, CHILDREN AND GRANDCHILDREN ACTIVITY: INCREASE TOLERATED WITH FREQUENT REST PERIODS DIET: DECREASE SALT INTAKE FOLLOW - UP: SEE DR. DE LA PAZ/ SOLANGE GONZALES APRN/ TAMMY DUGGAN APRN IN THE OFFICE, CALL FOR APPOINTMENT TO BE SEEN IN OFFICE [address] SANTOS, NEUROLOGIST, FOLLOW UP JUNE 10, 2020 @ 1:15 PM AND TO FOLLOW PANDEMIC GUIDELINES DR. GREGG'S( CUP MACHINE OPERATOR) OFFICE TO CALL WITH AN APPOINTMENT, [phone], F/U REGARDING CALLOUS AREA TO POSTERIOR LT 2 D ECHO OUTPATIENT AT [facility], WILL CALL WITH TIME. CODE STATUS: FULL CODE HOME O2 HAS BEEN PROVIDED FROM [facility] ELEVATE LEGS: KEEP LEGS ELEVATED ABOVE HEART DURING DAY AND NIGHT MR. DENISE HAS REMAINED ALERT AND ORIENTED. HE GETS UP WITH WHEELED WALKER AND SBA OF ONE. SOA WITH EXERTION. NUTRITIONAL AND FLUID INTAKE HAVE BEEN SUBSTANTIAL. SKIN WARM AND DRY AND INTACT WITH TRACE EDEMA TO LEGS WITH WRINKLING FROM PREVIOUS SEVERE PITTING EDEMA. HEMOSIDERIN TO BILATERAL LEGS WITH ABRASIONS CRUSTED TO LT LEG. HE USES OXYGEN AT NIGHT AT HOME PROVIDED PER [facility]. IS CONTINENT OF BOWEL AND BLADDER. LAST BM TODAY/06/04/2020. HE HAS SEVERAL OTHER FOLLOW UP MD VISITS. NEW APPOINTMENT REFERRAL BEING SENT TO DR. CARLSON/CUP MACHINE OPERATOR. MD SOLANGE ROJAS APRN ALYCE HANNAN, APRN
--- NOTE | 2020-06-10 12:55 | PN ---
DATE OF SERVICE: 05/31/2020 SUBJECTIVE: The patient was seen and examined this morning. The patient's condition has improved. His legs are much less swollen. The edema is down to probably +1 with no drainage at all. No real signs of any infection. Mild redness and irritation noted. REVIEW OF SYSTEMS: CONSTITUTIONAL: No night sweats. No fatigue, malaise, lethargy. No fever or chills. HEENT: Eyes: No visual changes. No eye pain. No eye discharge. ENT: No runny nose. No epistaxis. No sinus pain. No sore throat. No odynophagia. No congestion. RESPIRATORY: No cough, no congestion. No hemoptysis. No shortness of breath. CARDIOVASCULAR: No angina symptoms. No CHF symptoms. No atypical chest pain for CAD. No palpitations. No PND. No orthopnea. GASTROINTESTINAL: No abdominal pain. No nausea or vomiting. No diarrhea or constipation. No hematemesis. No hematochezia. GENITOURINARY: No urgency. No frequency. No dysuria. No hematuria. No obstructive symptoms. No discharge. No pain. No significant abnormal bleeding. MUSCULOSKELETAL: No musculoskeletal pain; no joint swelling. NEUROLOGICAL: No headache. No neck pain. No syncope. No seizures. No dizziness. PSYCHIATRIC: Not anxious. No depression. No suicidal thoughts. No homicidal thoughts. SKIN: No rash. No lesions. No wounds. ENDOCRINE: No unexplained weight loss. No weight gain. HEMATOLOGIC/LYMPHATIC: No anemia. No purpura. No petechiae. No prolonged or excessive bleeding. No palpable lymph nodes. PHYSICAL EXAMINATION: GENERAL: The patient is oriented to time, place and person. HEENT: Head normocephalic, atraumatic. Eyes: Extraocular muscles are intact. Pupils are equal, round and reactive to light and accommodation. Ears: No lesions. Nose appeared normal. Throat: No exudate or erythema. NECK: Supple. No JVD, no carotid bruit. No lymphadenopathy or thyromegaly. LUNGS: Decreased breath sounds but clear to auscultation. Percussion note normal. Chest symmetrical. HEART: S1, S2, no S3. No murmurs. No cyanosis or clubbing. No ascites. Pulses: Dorsalis pedis and posterior tibial pulses +1 to +2 bilaterally. ABDOMEN: Soft. Nontender. Bowel sounds active. No CVA tenderness. No mass felt. EXTREMITIES: No edema. Full range of motion of all extremities, equal. NEUROLOGIC: No focal deficit. Cranial nerves II through XII are grossly intact. No headache. No double vision. SKIN: Not dry. Intact. Turgor - normal. LYMPHATIC: No palpable lymph nodes/no lymphedema. MUSCULOSKELETAL: Normal joints with no swelling. Muscle tone is normal. ASSESSMENT: 1. Bilateral leg edema and cellulitis seems to be resolving PLAN: 1. Elevate the legs 2. Hypokalemia, new problem we will given K-tab 20meq QID and check CBC and CMP daily 3. Continue antibiotics 4. Continue elevation of the legs 5. The patient explained about to lose weight, at least 25 pounds. Diet discussed 6. Advised low salt diet, DASH diet discussed with the patient 7. Lifestyle is poor TIME SPENT: More than 30 minutes. Plan and coordination of the patient's care discussed in the presence of nurse. REENA
== END 2020-06-04 15:00 | disposition home or self-care (01) | DRG 948 ==
LOC: MEDSURG A 13:04
PROVIDERS: ADMIT Internal Medicine; ATTEND Internal Medicine

== ENCOUNTER 2020-08-15 12:17 | Inpatient (IN) ==
[2020-08-15 12:35] LABS: BORDETELLA PARAPERTUSSIS (PCR) NOT DETECTED (NOT DETECT); BORDETELLA PERTUSSIS (PCR) NOT DETECTED (NOT DETECT); CHLAMYDIA PNEUMONIAE (PCR) NOT DETECTED (NOT DETECT); CORONAVIRUS 229E (PCR) NOT DETECTED (NOT DETECT); CORONAVIRUS HKU1 (PCR) NOT DETECTED (NOT DETECT); CORONAVIRUS NL63 (PCR) NOT DETECTED (NOT DETECT); CORONAVIRUS OC43 (PCR) NOT DETECTED (NOT DETECT); HUMAN METAPNEUMOVIRUS (PCR) NOT DETECTED (NOT DETECT); HUMAN RHINOVIRUS/ENTEROV (PCR) NOT DETECTED (NOT DETECT); INFLUENZA B (PCR) NOT DETECTED (NOT DETECT); MYCOPLASMA PNEUMONIAE (PCR) NOT DETECTED (NOT DETECT); PARAINFLUENZA VIRUS 1 (PCR) NOT DETECTED (NOT DETECT); PARAINFLUENZA VIRUS 2 (PCR) NOT DETECTED (NOT DETECT); PARAINFLUENZA VIRUS 3 (PCR) NOT DETECTED (NOT DETECT); PARAINFLUENZA VIRUS 4 (PCR) NOT DETECTED (NOT DETECT); RESPIRATORY SYNCYTIAL V (PCR) NOT DETECTED (NOT DETECT); SARS_COV_2 (PCR) NOT DETECTED (NOT DETECT)
[2020-08-15 13:21] LABS: ADENOVIRUS (PCR) NOT DETECTED (NOT DETECT)
[2020-08-15] MEDS ORDERED: NITROSTAT SL PRN (13:52)
[2020-08-15] MEDS ORDERED: ATROPINE SULFATE PFS IVP PRN (13:52)
[2020-08-15] MEDS ORDERED: TYLENOL PO PRN (13:52)
[2020-08-15] MEDS ORDERED: DOXY-100 100 MG in SODIUM CHLORIDE 100 ML IV SCH (14:00)
[2020-08-15] MEDS ORDERED: LASIX IVP STA (14:02)
[2020-08-15 14:04] VITALS: BMI 33.0
[2020-08-15 14:11] LABS: BASOPHILS % (AUTO) 0.5 % (0.0-3.0); EOSINOPHILS # (AUTO) 0.2 K/ul (0.0-0.7); EOSINOPHILS % (AUTO) 2.7 % (0.0-7.0); HEMATOCRIT 43.2 % (42.0-52.0); HEMOGLOBIN 13.9 g/dl (14.0-18.0); IMMATURE GRANULOCYTE % (AUTO) 0.5 % (0.0-5.0); LYMPHOCYTES # (AUTO) 1.5 K/uL (0.60-3.4); LYMPHOCYTES % (AUTO) 18.5 (10.0-50.0); MEAN CORPUSCULAR HEMOGLOBIN 28.3 pg (27.0-31.0); MEAN CORPUSCULAR HGB CONC 32.2 (31.8-35.4); MONOCYTES # (AUTO) 0.4 K/uL (0.4-2.0); MONOCYTES % (AUTO) 5.6 (0-10); NEUTROPHILS # (AUTO) 5.7 K/ul (2.0-6.9); NEUTROPHILS % (AUTO) 72.2 % (42.2-75.2); PLATELET COUNT 207 10^3/uL (140-440); RDW COEFFICIENT OF VARIATION 14.3 % (11.6-14.8); RED BLOOD COUNT 4.91 10^6/ul (4.70-6.10); WHITE BLOOD COUNT 7.89 K/ul (4.2-10.2)
[2020-08-15 14:23] LABS: ALANINE AMINOTRANSFERASE 10.4 U/L (0-50); ALBUMIN 3.91 g/dL (3.5-5.0); ALKALINE PHOSPHATASE 120.3 U/L (56-119); ASPARTATE AMINO TRANSFERASE 18.3 U/L (17-59); BILIRUBIN,TOTAL 0.37 mg/dL (0.2-1.3); BLOOD UREA NITROGEN 11.5 mg/dL (9-20); CARBON DIOXIDE 30.8 mmol/L (22-30.0); CREATININE 1.28 mg/dL (0.60-1.10); GLUCOSE 118.8 mg/dL (74-106); POTASSIUM 3.48 mmol/L (3.5-5.1); SODIUM 137.9 mmol/L (134.5-145); TOTAL PROTEIN 7.28 g/dL (6.3-8.2)
[2020-08-15] MEDS: DOXY-100 100 MG in SODIUM CHLORIDE 100 ML IV SCH ×2 (14:26→21:27)
[2020-08-15 14:35] LABS: TROPONIN I < 0.012 ng/ml (0.0000-0.120)
[2020-08-15] MEDS ORDERED: POLYETHYLENE GLYCOL PO PRN (14:39)
[2020-08-15] MEDS ORDERED: ZAROXOLYN PO PRN ×2 (14:39→15:21)
[2020-08-15 14:59] LABS: BILIRUBIN,URINE Negative (NEGATIVE); CLARITY,URINE Clear (CLEAR); COLOR,URINE Yellow (YELLOW); GLUCOSE, URINE (UA) Negative (NEGATIVE); KETONES,URINE Negative (NEGATIVE); LEUKOCYTE ESTERASE ,URINE Negative (NEGATIVE); NITRITE,URINE Negative (NEGATIVE); PROTEIN,URINE Negative (NEGATIVE); URINE, BLOOD 2+ (NEGATIVE); UROBILINOGEN,URINE 0.2 (0.2)
[2020-08-15] MEDS ORDERED: VITAMIN B-12 IM SCH (15:00)
[2020-08-15] MEDS ORDERED: OXYCODONE PO SCH (15:00)
--- NOTE | 2020-08-15 15:35 | DI ---
EXAM: Chest one view, frontal view only. HISTORY: Shortness of breath. COMPARISON: 05/30/2020. FINDINGS: Low lung volumes and portable technique accentuates the cardiomediastinal silhouette. The re is no consolidation, pleural effusion or pneumothorax. No overt vascular congestion. No acute os seous abnormality detected. IMPRESSION: Low lung volumes. No acute process.
[2020-08-15] MEDS: XANAX PO SCH ×2 (15:38→20:58)
[2020-08-15] MEDS: ROCEPHIN 1 GM/50 ML D5W 1 GM/50 ML BAG IV SCH (15:55)
--- NOTE | 2020-08-15 16:06 | US ---
EXAM: Ultrasound venous Doppler bilateral lower extermity HISTORY: Leg edema, redness COMPARISON: 07/15/1979 TECHNIQUE: Venous duplex ultrasound of the bilateral lower extremity was performed using color, yepez -scale, and Doppler flow imaging. FINDINGS: There is normal color flow and compression of the bilateral common femoral, greater saphen ous, profunda femoral, femoral, popliteal, peroneal, posterior tibial, and anterior tibial veins with out evidence of intraluminal thrombus. Right lower extremity subcutaneous edema about the calf. Rig ht groin lymph node measures 1.7 cm short axis. IMPRESSION: 1. No evidence of DVT within the bilateral lower extremities. 2. Right lower extremity subcutaneous edema. 3. Nonspecific right inguinal adenopathy
[2020-08-15] MEDS: OXYCODONE PO PRN ×2 (16:14→21:56)
[2020-08-15] MEDS: FLOMAX PO SCH (17:26)
[2020-08-15] MEDS: DESYREL PO SCH (20:58)
[2020-08-15] MEDS: PAMELOR PO SCH (20:58)
[2020-08-15] MEDS: CATAPRES PO SCH (20:58)
[2020-08-15] MEDS: NORVASC PO SCH (20:59)
[2020-08-15] MEDS: LOPRESSOR PO SCH (20:59)
[2020-08-15] MEDS: MS CONTIN PO SCH (20:59)
[2020-08-15] MEDS: AMBIEN PO SCH (20:59)
[2020-08-15] MEDS ORDERED: NORTRIPTYLINE 25 MG PO SCH (21:00)
[2020-08-15] MEDS: LOTRISONE 45 GM TP SCH (21:26)
[2020-08-15 22:21] LABS: CREATINE KINASE 72.8 U/L (55-170)
[2020-08-15 22:34] LABS: TROPONIN I < 0.012 ng/ml (0.0000-0.120)
[2020-08-16 04:56] LABS: BASOPHILS # (AUTO) 0.1 K/uL (0-0.2); BASOPHILS % (AUTO) 0.6 % (0.0-3.0); EOSINOPHILS # (AUTO) 0.2 K/ul (0.0-0.7); EOSINOPHILS % (AUTO) 2.4 % (0.0-7.0); HEMATOCRIT 43.5 % (42.0-52.0); HEMOGLOBIN 14.1 g/dl (14.0-18.0); IMMATURE GRANULOCYTE % (AUTO) 0.2 % (0.0-5.0); LYMPHOCYTES # (AUTO) 1.8 K/uL (0.60-3.4); LYMPHOCYTES % (AUTO) 22.2 (10.0-50.0); MEAN CORPUSCULAR HEMOGLOBIN 28.2 pg (27.0-31.0); MEAN CORPUSCULAR HGB CONC 32.4 (31.8-35.4); MONOCYTES # (AUTO) 0.5 K/uL (0.4-2.0); MONOCYTES % (AUTO) 6.4 (0-10); NEUTROPHILS # (AUTO) 5.5 K/ul (2.0-6.9); NEUTROPHILS % (AUTO) 68.2 % (42.2-75.2); PLATELET COUNT 209 10^3/uL (140-440); RDW COEFFICIENT OF VARIATION 14.2 % (11.6-14.8); WHITE BLOOD COUNT 8.07 K/ul (4.2-10.2)
[2020-08-16 05:11] LABS: ALANINE AMINOTRANSFERASE 8.4 U/L (0-50); ALBUMIN 3.54 g/dL (3.5-5.0); ALKALINE PHOSPHATASE 110.7 U/L (56-119); ASPARTATE AMINO TRANSFERASE 25.5 U/L (17-59); BILIRUBIN,TOTAL 0.33 mg/dL (0.2-1.3); BLOOD UREA NITROGEN 12.9 mg/dL (9-20); CALCIUM 8.73 mg/dL (8.4-10.2); CARBON DIOXIDE 36.3 mmol/L (22-30.0); CHLORIDE 101.5 mmol/L (98-107); CREATININE 1.28 mg/dL (0.60-1.10); GLUCOSE 108.5 mg/dL (74-106); POTASSIUM 3.84 mmol/L (3.5-5.1); SODIUM 139.7 mmol/L (134.5-145); TOTAL PROTEIN 6.72 g/dL (6.3-8.2)
[2020-08-16] MEDS: PRILOSEC PO SCH (05:51)
[2020-08-16] MEDS ORDERED: LASIX TAB PO SCH (06:30)
[2020-08-16] MEDS ORDERED: PANTOPRAZOLE 20 MG PO SCH (09:00)
[2020-08-16] MEDS ORDERED: PROTONIX PO SCH (09:00)
[2020-08-16] MEDS: CATAPRES PO SCH ×2 (09:56→20:27)
[2020-08-16] MEDS: XANAX PO SCH ×3 (09:56→20:28)
[2020-08-16] MEDS: ASPIRIN CHEWABLE PO SCH (09:56)
[2020-08-16] MEDS: K-DUR PO SCH (09:56)
[2020-08-16] MEDS: LIPITOR PO SCH (09:56)
[2020-08-16] MEDS: LOPRESSOR PO SCH ×2 (09:57→20:28)
[2020-08-16] MEDS: ZETIA PO SCH (09:57)
[2020-08-16] MEDS: MS CONTIN PO SCH ×2 (09:57→20:28)
[2020-08-16] MEDS: PLAVIX PO SCH (09:57)
[2020-08-16] MEDS: DOXY-100 100 MG in SODIUM CHLORIDE 100 ML IV SCH ×2 (09:57→20:28)
[2020-08-16] MEDS: LOTRISONE 45 GM TP SCH ×2 (09:58→20:29)
[2020-08-16] MEDS: OXYCODONE PO PRN ×2 (10:19→21:08)
--- NOTE | 2020-08-16 10:50 | PCM.PROG ---
Attending Provider: ATTENDING PROVIDER: Dr. CARLOS DE LA PAZ DATE OF SERVICE: 08/16/20 SUBJECTIVE: This 60 year old /WHITE M was hospitalized 08/15/20 with right lower leg cellulitis. The patient has chronic pedal edema with dark pigmentation. The patient's other redness on top of that has practically resolved and looks the same as left leg. Trace chronic edema bilaterally persists but right leg ce llulitis has resolved. No fever. REVIEW OF SYSTEMS: CONSTITUTIONAL: No night sweats. No fatigue, malaise, lethargy. No fever or chills. HEENT: Eyes: No visual changes. No eye pain. No eye discharge. ENT: No runny nose. No epistaxis. No sinus pain. No odynophagia. No congestion. RESPIRATORY: No cough, no congestion. No hemoptysis. No shortness of breath. CARDIOVASCULAR: No angina symptoms. No CHF symptoms. No atypical chest pain for CAD. No palpitations. No orthopnea.. GASTROINTESTINAL: Appetite normal. No abdominal pain. No nausea or vomiting. No diarrhea or constipation. No hematemesis. No hematochezia. GENITOURINARY: No urgency. No frequency. No dysuria. No hematuria. No obstructive symptoms. No discharge. No pain. No significant abnormal bleeding. MUSCULOSKELETAL: No musculoskeletal pain; no joint swelling. NEUROLOGICAL: Awake, alert, oriented to time, place and person. No headache. No neck pain. No syncope. No seizures. No dizziness. PSYCHIATRIC: Not anxious. No depression. No suicidal thoughts. No homicidal thoughts. SKIN: No rash. ENDOCRINE: No unexplained weight loss. No weight gain. HEMATOLOGIC/LYMPHATIC: No anemia. No purpura. No petechiae. No prolonged or excessive bleeding. No palpable lymph nodes. PHYSICAL EXAMINATION: GENERAL: The patient is awake, alert and oriented, lying/sitting in bed in no distress. VITAL SIGNS: Temperature 98.9 F, Pulse 74, Respiratory Rate 18, BP 139/82, Pulse Ox 93% HEENT: Head normocephalic, atraumatic. Eyes: Extraocular muscles are intact. Pupils are equal, round and reactive to light and accommodation. Ears: No lesions. Nose appeared normal. Throat: No exudate or erythema. NECK: Supple. No JVD, no carotid bruit. No lymphadenopathy or thyromegaly. LUNGS: Clear to auscultation. Percussion note normal. Chest symmetrical. HEART: S1, S2, no S3. No murmurs. No cyanosis or clubbing. No ascites. Pulses: Dorsalis pedis and posterior tibial pulses +1 to +2 both sides. ABDOMEN: Soft. Non-tender. Bowel sounds active. No CVA tenderness. No mass felt. EXTREMITIES: Right leg looks same as left - no swelling, no discharge. There is a scab over the area which was poked by the wound stick seems to be healthy no drainage. Full range of motion of all extremities, equal. NEUROLOGIC: No focal deficit. Cranial nerves II through XII are grossly intact. No headache, no double vision or headache. SKIN: Warm and dry. Intact. Turgor-normal. LYMPHATIC: No palpable lymph nodes/no lymphedema. MUSCULOSKELETAL: Normal joints with no swelling. Muscle tone is normal. LAB REVIEW: 08/16/20 04:48 08/16/20 04:48 08/16/20 04:48: Sodium 139.7, Potassium 3.84, Chloride 101.5, Carbon Dioxide 36.3 H, Anion Gap 5.74, BUN 12.9, Creatinine 1.28 H, Estimated GFR (MDRD) 57.00, BUN/Creatinine Ratio 10.07, Glucose 108.5 H, Calcium 8.73, Total Bilirubin 0.33, AST 25.5, ALT 8.4, Alkaline Phosphatase 110.7, Total Protein 6.72, Albumin 3.54, Globulin 3.18, Albumin/Globulin Ratio 1.11 08/16/20 04:48: WBC 8.07, RBC 5.00, Hgb 14.1, Hct 43.5, MCV 87.0, MCH 28.2, MCHC 32.4, RDW Coeff of Lety 14.2, Plt Count 209, Immature Gran % (Auto) 0.2, Neut % (Auto) 68.2, Lymph % (Auto) 22.2, Ware % (Auto) 6.4, Eos % (Auto) 2.4, Baso % (Auto) 0.6, Neut # (Auto) 5.5, Lymph # (Auto) 1.8, Ware # (Auto) 0.5, Eos # (Auto) 0.2, Baso # (Auto) 0.1, Immature Gran # (Auto) 0.0 08/15/20 22:01: Total Creatine Kinase 72.8, Troponin I < 0.012 08/15/20 14:49: Urine Color Yellow, Urine Clarity Clear, Urine pH 7.0, Ur Specific [place] 1.010, Urine Protein Negative, Urine Glucose (UA) Negative, Urine Ketones Negative, Urine Blood 2+ H, Urine Nitrite Negative, Urine Bilirubin Negative, Urine Urobilinogen 0.2, Ur Leukocyte Esterase Negative, Urine Microscopic RBC 2-5, Ur Squamous Epith Cells 2-5 08/15/20 14:06: Sodium 137.9, Potassium 3.48 L, Chloride 102.0, Carbon Dioxide 30.8 H, Anion Gap 8.58, BUN 11.5, Creatinine 1.28 H, Estimated GFR (MDRD) 57.00, BUN/Creatinine Ratio 8.98, Glucose 118.8 H, Calcium 9.10, Total Bilirubin 0.37, AST 18.3, ALT 10.4, Alkaline Phosphatase 120.3 H, Total Creatine Kinase 76.0, Troponin I < 0.012, Total Protein 7.28, Albumin 3.91, Globulin 3.37, Albumin/Globulin Ratio 1.16 08/15/20 14:06: WBC 7.89, RBC 4.91, Hgb 13.9 L, Hct 43.2, MCV 88.0, MCH 28.3, MCHC 32.2, RDW Coeff of Lety 14.3, Plt Count 207, Immature Gran % (Auto) 0.5, Neut % (Auto) 72.2, Lymph % (Auto) 18.5, [place] % (Auto) 5.6, Eos % (Auto) 2.7, Baso % (Auto) 0.5, Neut # (Auto) 5.7, Lymph # (Auto) 1.5, Ware # (Auto) 0.4, Eos # (Auto) 0.2, Baso # (Auto) 0.0, Immature Gran # (Auto) 0.0 08/15/20 12:30: Adenovirus (PCR) Not detected, B. pertussis DNA (PCR) Not detected, B.parapertussis DNA PCR Not detected, C. pneumoniae DNA (PCR) Not detected, Coronavirus OC43 (PCR) Not detected, Coronavirus HKU1 (PCR) Not detected, Coronavirus 229E (PCR) Not detected, Coronavirus NL63 (PCR) Not detected, Human Metapneumovir PCR Not detected, Influenza Type A (PCR) Not detected, Influenza B (RT-PCR) Not detected, M. pneumoniae (PCR) Not detected, Parainfluenza 1 (PCR) Not detected, Parainfluenza 2 (PCR) Not detected, Parainfluenza 3 (PCR) Not detected, Parainfluenza 4 (PCR) Not detected, RSV (PCR) Not detected, Entero/Rhino (PCR) Not detected, SARS-CoV-2 (PCR) Not detected ASSESSMENT: Please see below. 1. Cellulitis of right lower extremity seems to have resolved. Chronic dark pigmentation persists. 2. Cardiovascular status stable. 3. Blood pressure check again showed 139/82. Initial was high in the a.m. PLAN: 1. Continue antibiotics Doxycycline and Rocephin. 2. Elevate the legs. 3. The patient is complaining of legs cramping likely from change in fluid status in body. Will put on Requip 2 mg at night. 4. Elevate legs. Plan and coordination of the patient's care discussed in the presence of Microbial Specialist and nurse. CONDITION: Stable SCRIBED BY: DIANA DIXON Javascript Ui Developer scribed while in presence of service performed by Dr. CARLOS DE LA PAZ on 08/16/20 ([id number])
[2020-08-16] MEDS: ROCEPHIN 1 GM/50 ML D5W 1 GM/50 ML BAG IV SCH (12:33)
--- NOTE | 2020-08-16 14:41 | HP ---
DATE OF SERVICE: 08/15/20 HISTORY OF PRESENT ILLNESS: 60-year-old male who was seen in ER followup 08/10/20 [facility]. Right leg puncture with stick. The patient started Keflex. Tetanus vaccine. He is having chills, right lower extremity pain, redness and swelling. PAST MEDICAL HISTORY: Hypertension [place] CAD CKD COPD B12 deficiency Migraine Dyslipidemia Chronic back pain Renal artery stenosis with stent Depression Sleep apnea on CPAP PSA 7-16 (0.5) PAST SURGICAL HISTORY: Back surgery 1999 Renal artery stent 2000, 2002, 2006 Gallbladder 2004 Hernia 2004 REVIEW OF SYSTEMS: CONSTITUTIONAL: Fatigue and chills. HEENT: No sinus drainage, no sore throat. RESPIRATORY: No cough, no congestion. CARDIOVASCULAR: No atypical chest pain for coronary artery disease. No angina, CHF symptoms, palpitations or shortness of breath. GASTROINTESTINAL: No melena or abdominal pain. No GERD. GENITOURINARY: No hematuria, no prostatism, no polyuria. EMBROIDERY OPERATOR: No blackout, no dizziness, no headache, no double vision. MUSCULOSKELETAL: Osteoarthritis pain, no joint swelling. ENDOCRINE: No weight loss, no weight gain. SKIN: Not dry, no rash. PSYCHIATRIC: Not anxious, no depression, no suicidal thoughts, no homicidal thoughts. SOCIAL HISTORY: Smoker, one pack per day times 25 years. . Three children. Disabled. No alcohol use. FAMILY HISTORY: Father age 69, CVA, Hypertension. Mother age 68, [place]. Two brothers, three sisters. MEDICATIONS: Lipitor 80 mg one daily Lopressor 100 mg one b.i.d. Xanax 0.5 mg one b.i.d. Plavix 75 mg one daily Oxycodone 30 mg two pills q.8hr (Dr. Fleming) Trazodone 150 mg h.s. (Dr. Fleming) Morphine 60 mg one b.i.d. (Dr. Fleming) Ambien 10 mg one at h.s. (Dr. Fleming) Pamelor 25 mg two at h.s. (Dr. Fleming) Nitroglycerin Norvasc 5 mg one daily ASA 81 mg one daily Protonix 20 mg one daily Lasix 40 mg one daily B12 1000 mg IM monthly Zaroxolyn 2.5 mg 3/weeks Clonidine 0.3 mg one b.i.d. Aldactone 25 mg one daily 02 p.r.n. K+ 20 mEq one daily Nebulizer treatment/Albuterol Lotrisone cream Flomax 0.4 mg Zetia 10 mg daily ALLERGIES: BACLOFEN, BACTRIM, ZESTRIL(01-23-16) (ANGIOEDEMA) PHYSICAL EXAMINATION: V/S: Pulse 90, BP 134/74, temperature 98.2, 02 sat 93%. BMI 33. Height 6'1, weight 251.8. GENERAL APPEARANCE: Oriented times three. HEENT: Normal. NECK: No JVP, no bruits. RESPIRATORY: Decreased breath sounds. Lungs are clear. CARDIOVASCULAR: S1, S2, no S3, no murmur. No cyanosis, clubbing. No ascites. GI/ABDOMEN: No tenderness. Bowel sounds are active. EXTREMITIES: +2 right lower extremity edema, +1 left lower extremity edema, pulses +1, equal. 1 cm round laceration, right lower extremity scab with yellow drainage, swollen, warm. EMBROIDERY OPERATOR: Deep tendon reflexes, sensory, motor and gait all normal. RECTAL/PROSTATE: Prostate 12/10 (2.1). 09/13 (0.5), 09/17 (0.5). Colonoscopy 2009, Dr. Shaver. ASSESSMENT: 1. Right lower extremity cellulitis, chills, redness and pain. 2. Peripheral arterial disease 3. COPD 4. Right renal artery stents 2006 5. Left cholesteatoma? 6. 02 at [facility] 7. Chronic retinal detachment - Dr. Fleming 8. Chronic back pain 9. Hyperglycemia 10. Leg edema 11. Chronic bronchitis 12. Respiratory panel by PCR prior to admission 13. L-spine surgery 2000 14. Chronic kidney disease, Stage 15. Noncompliant with diet, lifestyle and medications. 16. Smoking. 17. CVA - Dr. Fleming 18. Hypertension 19. B12 deficiency 20. Dyslipidemia 21. Depression 22. Sleep apnea 23. Insomnia 24. CAD PLAN: 1. Routine telemetry orders 2. CBC, CMP now and daily 3. Bilateral venous scan of lower extremities now 4. Culture right lower extremity wound now 5. Rocephin 1 gm IV daily 6. Doxycycline 100 mg IV q.12hr 7. Elevate the legs above the hip 8. Lasix 40 mg IV now times one dose 9. Continue home medications 10. Regular diet TIME SPENT: More than 70 minutes. MTDD
[2020-08-16] MEDS: FLOMAX PO SCH (17:27)
[2020-08-16] MEDS: PAMELOR PO SCH (20:27)
[2020-08-16] MEDS: REQUIP PO SCH (20:27)
[2020-08-16] MEDS: DESYREL PO SCH (20:28)
[2020-08-16] MEDS: NORVASC PO SCH (20:28)
[2020-08-16] MEDS: AMBIEN PO SCH (20:28)
[2020-08-17] MEDS: OXYCODONE PO PRN ×4 (04:20→20:43)
[2020-08-17 05:26] LABS: BASOPHILS # (AUTO) 0.1 K/uL (0-0.2); BASOPHILS % (AUTO) 0.7 % (0.0-3.0); EOSINOPHILS # (AUTO) 0.3 K/ul (0.0-0.7); EOSINOPHILS % (AUTO) 3.4 % (0.0-7.0); HEMATOCRIT 44.9 % (42.0-52.0); HEMOGLOBIN 14.4 g/dl (14.0-18.0); IMMATURE GRANULOCYTE % (AUTO) 0.2 % (0.0-5.0); LYMPHOCYTES # (AUTO) 2.3 K/uL (0.60-3.4); LYMPHOCYTES % (AUTO) 26.4 (10.0-50.0); MEAN CORPUSCULAR HEMOGLOBIN 28.2 pg (27.0-31.0); MEAN CORPUSCULAR HGB CONC 32.1 (31.8-35.4); MEAN CORPUSCULAR VOLUME 87.9 fl (80.0-94.0); MONOCYTES # (AUTO) 0.5 K/uL (0.4-2.0); MONOCYTES % (AUTO) 5.5 (0-10); NEUTROPHILS # (AUTO) 5.5 K/ul (2.0-6.9); NEUTROPHILS % (AUTO) 63.8 % (42.2-75.2); PLATELET COUNT 209 10^3/uL (140-440); RDW COEFFICIENT OF VARIATION 14.2 % (11.6-14.8); RED BLOOD COUNT 5.11 10^6/ul (4.70-6.10); WHITE BLOOD COUNT 8.56 K/ul (4.2-10.2)
[2020-08-17 05:37] LABS: ALANINE AMINOTRANSFERASE 9.2 U/L (0-50); ALBUMIN 3.5 g/dL (3.5-5.0); ALKALINE PHOSPHATASE 104.1 U/L (56-119); BILIRUBIN,TOTAL 0.44 mg/dL (0.2-1.3); BLOOD UREA NITROGEN 11.7 mg/dL (9-20); CALCIUM 8.98 mg/dL (8.4-10.2); CARBON DIOXIDE 31.6 mmol/L (22-30.0); CHLORIDE 102.4 mmol/L (98-107); CREATININE 1.15 mg/dL (0.60-1.10); GLUCOSE 126.1 mg/dL (74-106); POTASSIUM 3.4 mmol/L (3.5-5.1); SODIUM 138.6 mmol/L (134.5-145); TOTAL PROTEIN 6.6 g/dL (6.3-8.2)
[2020-08-17] MEDS: LASIX TAB PO SCH (05:52)
[2020-08-17] MEDS: PRILOSEC PO SCH (05:52)
[2020-08-17] MEDS: LOPRESSOR PO SCH ×2 (09:15→20:44)
[2020-08-17] MEDS: ZETIA PO SCH (09:15)
[2020-08-17] MEDS: CATAPRES PO SCH ×2 (09:15→20:44)
[2020-08-17] MEDS: LIPITOR PO SCH (09:15)
[2020-08-17] MEDS: ASPIRIN CHEWABLE PO SCH (09:15)
[2020-08-17] MEDS: ROCEPHIN 1 GM/50 ML D5W 1 GM/50 ML BAG IV SCH (09:16)
[2020-08-17] MEDS: XANAX PO SCH ×3 (09:16→20:44)
[2020-08-17] MEDS: K-DUR PO SCH ×2 (09:16→16:05)
[2020-08-17] MEDS: MS CONTIN PO SCH ×2 (09:16→20:43)
[2020-08-17] MEDS: LOTRISONE 45 GM TP SCH ×2 (09:17→20:44)
[2020-08-17] MEDS: PLAVIX PO SCH (09:17)
[2020-08-17] MEDS: DOXY-100 100 MG in SODIUM CHLORIDE 100 ML IV SCH ×2 (10:52→20:45)
[2020-08-17] MEDS: FLOMAX PO SCH (16:05)
[2020-08-17] MEDS: PAMELOR PO SCH (20:41)
[2020-08-17] MEDS: DESYREL PO SCH (20:42)
[2020-08-17] MEDS: REQUIP PO SCH (20:42)
[2020-08-17] MEDS: NORVASC PO SCH (20:43)
[2020-08-17] MEDS: AMBIEN PO SCH (20:44)
[2020-08-18] MEDS: OXYCODONE PO PRN ×3 (04:42→20:05)
[2020-08-18 05:15] LABS: BASOPHILS # (AUTO) 0.1 K/uL (0-0.2); BASOPHILS % (AUTO) 0.8 % (0.0-3.0); EOSINOPHILS # (AUTO) 0.3 K/ul (0.0-0.7); EOSINOPHILS % (AUTO) 3.2 % (0.0-7.0); HEMATOCRIT 45.8 % (42.0-52.0); HEMOGLOBIN 14.8 g/dl (14.0-18.0); IMMATURE GRANULOCYTE % (AUTO) 0.5 % (0.0-5.0); LYMPHOCYTES # (AUTO) 2.2 K/uL (0.60-3.4); LYMPHOCYTES % (AUTO) 25.6 (10.0-50.0); MEAN CORPUSCULAR HGB CONC 32.3 (31.8-35.4); MEAN CORPUSCULAR VOLUME 86.6 fl (80.0-94.0); MONOCYTES # (AUTO) 0.5 K/uL (0.4-2.0); NEUTROPHILS # (AUTO) 5.5 K/ul (2.0-6.9); NEUTROPHILS % (AUTO) 63.9 % (42.2-75.2); PLATELET COUNT 225 10^3/uL (140-440); RDW COEFFICIENT OF VARIATION 14.2 % (11.6-14.8); RED BLOOD COUNT 5.29 10^6/ul (4.70-6.10); WHITE BLOOD COUNT 8.63 K/ul (4.2-10.2)
[2020-08-18 05:26] LABS: ALANINE AMINOTRANSFERASE 10.2 U/L (0-50); ALBUMIN 3.54 g/dL (3.5-5.0); ALKALINE PHOSPHATASE 112.9 U/L (56-119); ASPARTATE AMINO TRANSFERASE 20.6 U/L (17-59); BILIRUBIN,TOTAL 0.37 mg/dL (0.2-1.3); BLOOD UREA NITROGEN 14.7 mg/dL (9-20); CALCIUM 8.8 mg/dL (8.4-10.2); CARBON DIOXIDE 36.7 mmol/L (22-30.0); CHLORIDE 99.6 mmol/L (98-107); CREATININE 1.21 mg/dL (0.60-1.10); GLUCOSE 102.7 mg/dL (74-106); POTASSIUM 3.81 mmol/L (3.5-5.1); SODIUM 138.1 mmol/L (134.5-145); TOTAL PROTEIN 6.6 g/dL (6.3-8.2)
[2020-08-18] MEDS: PRILOSEC PO SCH (05:58)
[2020-08-18] MEDS: LASIX TAB PO SCH (05:58)
[2020-08-18] MEDS: ROCEPHIN 1 GM/50 ML D5W 1 GM/50 ML BAG IV SCH (08:15)
[2020-08-18] MEDS: LOTRISONE 45 GM TP SCH ×2 (08:17→21:30)
[2020-08-18] MEDS: ZETIA PO SCH (08:18)
[2020-08-18] MEDS: CATAPRES PO SCH ×2 (08:18→21:17)
[2020-08-18] MEDS: LOPRESSOR PO SCH ×2 (08:19→21:16)
[2020-08-18] MEDS: ASPIRIN CHEWABLE PO SCH (08:19)
[2020-08-18] MEDS: MS CONTIN PO SCH ×2 (08:19→21:18)
[2020-08-18] MEDS: K-DUR PO SCH ×2 (08:20→17:14)
[2020-08-18] MEDS: XANAX PO SCH ×3 (08:20→21:29)
[2020-08-18] MEDS: PLAVIX PO SCH (08:22)
[2020-08-18] MEDS: LIPITOR PO SCH (08:25)
[2020-08-18] MEDS: DOXY-100 100 MG in SODIUM CHLORIDE 100 ML IV SCH (09:44)
[2020-08-18] MEDS: FLOMAX PO SCH (17:15)
[2020-08-18] MEDS: MIRALAX PO PRN (20:05)
[2020-08-18] MEDS: DESYREL PO SCH (21:16)
[2020-08-18] MEDS: NORVASC PO SCH (21:19)
[2020-08-18] MEDS: KEFLEX PO SCH (21:19)
[2020-08-18] MEDS: PAMELOR PO SCH (21:20)
[2020-08-18] MEDS: DOXYCYCLINE HYCLATE PO SCH (21:20)
[2020-08-18] MEDS: AMBIEN PO SCH (21:29)
[2020-08-18] MEDS: REQUIP PO SCH (22:32)
[2020-08-19] MEDS: OXYCODONE PO PRN ×2 (04:46→11:44)
[2020-08-19 05:02] LABS: BASOPHILS # (AUTO) 0.1 K/uL (0-0.2); BASOPHILS % (AUTO) 0.6 % (0.0-3.0); EOSINOPHILS # (AUTO) 0.3 K/ul (0.0-0.7); EOSINOPHILS % (AUTO) 3.5 % (0.0-7.0); HEMOGLOBIN 14.5 g/dl (14.0-18.0); IMMATURE GRANULOCYTE % (AUTO) 0.3 % (0.0-5.0); LYMPHOCYTES # (AUTO) 2.7 K/uL (0.60-3.4); MEAN CORPUSCULAR HGB CONC 32.2 (31.8-35.4); MONOCYTES # (AUTO) 0.5 K/uL (0.4-2.0); NEUTROPHILS # (AUTO) 5.1 K/ul (2.0-6.9); NEUTROPHILS % (AUTO) 58.6 % (42.2-75.2); PLATELET COUNT 216 10^3/uL (140-440); RDW COEFFICIENT OF VARIATION 14.1 % (11.6-14.8); RED BLOOD COUNT 5.17 10^6/ul (4.70-6.10); WHITE BLOOD COUNT 8.68 K/ul (4.2-10.2)
[2020-08-19 05:18] LABS: ALANINE AMINOTRANSFERASE 9.6 U/L (0-50); ALBUMIN 3.5 g/dL (3.5-5.0); ALKALINE PHOSPHATASE 107.1 U/L (56-119); ASPARTATE AMINO TRANSFERASE 18.7 U/L (17-59); BILIRUBIN,TOTAL 0.39 mg/dL (0.2-1.3); BLOOD UREA NITROGEN 16.6 mg/dL (9-20); CALCIUM 8.76 mg/dL (8.4-10.2); CARBON DIOXIDE 36.4 mmol/L (22-30.0); CREATININE 1.26 mg/dL (0.60-1.10); GLUCOSE 98.9 mg/dL (74-106); POTASSIUM 3.85 mmol/L (3.5-5.1); SODIUM 138.2 mmol/L (134.5-145); TOTAL PROTEIN 6.6 g/dL (6.3-8.2)
[2020-08-19] MEDS: PRILOSEC PO SCH (06:00)
[2020-08-19] MEDS: LASIX TAB PO SCH (06:00)
[2020-08-19] MEDS ORDERED: CITRATE OF MAGNESIA PO ONE (09:00)
[2020-08-19] MEDS: CATAPRES PO SCH ×2 (09:34→20:33)
[2020-08-19] MEDS: MS CONTIN PO SCH ×2 (09:34→20:34)
[2020-08-19] MEDS: ZETIA PO SCH (09:34)
[2020-08-19] MEDS: DOXYCYCLINE HYCLATE PO SCH ×2 (09:34→20:33)
[2020-08-19] MEDS: KEFLEX PO SCH ×3 (09:34→20:33)
[2020-08-19] MEDS: K-DUR PO SCH ×2 (09:34→17:17)
[2020-08-19] MEDS: LOPRESSOR PO SCH ×2 (09:35→20:33)
[2020-08-19] MEDS: XANAX PO SCH ×3 (09:35→20:33)
[2020-08-19] MEDS: LIPITOR PO SCH (09:35)
[2020-08-19] MEDS: PLAVIX PO SCH (09:35)
[2020-08-19] MEDS: ASPIRIN CHEWABLE PO SCH (09:35)
[2020-08-19] MEDS: LOTRISONE 45 GM TP SCH ×2 (09:36→20:35)
--- NOTE | 2020-08-19 10:20 | PCM.PROG ---
Attending Provider: ATTENDING PROVIDER: Dr. CARLOS DE LA PAZ This patient is seen with Charo Collins, Nurse Practitioner. DATE OF SERVICE: 08/19/20 SUBJECTIVE: This 60 year old /WHITE M was hospitalized 08/15/20. leg jose m miprove. does area of rednright fore from previ iv site. complains of lisght tenderness. REVIEW OF SYSTEMS: CONSTITUTIONAL: No night sweats. No fatigue, malaise, lethargy. No fever or chills. HEENT: Eyes: No visual changes. No eye pain. No eye discharge. ENT: No runny nose. No epistaxis. No sinus pain. No odynophagia. No congestion. RESPIRATORY: No cough, no congestion. No hemoptysis. No shortness of breath. CARDIOVASCULAR: No angina symptoms. No CHF symptoms. No atypical chest pain for CAD. No palpitations. No orthopnea.. GASTROINTESTINAL: No abdominal pain. No nausea or vomiting. No diarrhea or constipation. No hematemesis. No hematochezia. GENITOURINARY: No urgency. No frequency. No dysuria. No hematuria. No obstructive symptoms. No discharge. No pain. No significant abnormal bleeding. MUSCULOSKELETAL: No musculoskeletal pain; no joint swelling. Right leg tenderness. Right forearm tenderness. NEUROLOGICAL: Awake, alert, oriented to time, place and person. No headache. No neck pain. No syncope. No seizures. No dizziness. PSYCHIATRIC: Not anxious. No depression. No suicidal thoughts. No homicidal thoughts. SKIN: No rash. No lesions. No wounds. ENDOCRINE: No unexplained weight loss. No weight gain. HEMATOLOGIC/LYMPHATIC: No anemia. No purpura. No petechiae. No prolonged or excessive bleeding. No palpable lymph nodes. PHYSICAL EXAMINATION: GENERAL: The patient is awake, alert and oriented, lying in bed in no distress. VITAL SIGNS: Temperature 97.5 F, Pulse 67, Respiratory Rate 18, BP 133/80, Pul se Ox 93% HEENT: Head normocephalic, atraumatic. Eyes: Extraocular muscles are intact. Pupils are equal, round and reactive to light and accommodation. Ears: No lesions. Nose appeared normal. Throat: No exudate or erythema. NECK: Supple. No JVD, no carotid bruit. No lymphadenopathy or thyromegaly. LUNGS: Diminished breath sounds. Clear to auscultation. Percussion note normal. Chest symmetrical. HEART: S1, S2, no S3. No murmurs. No cyanosis or clubbing. No ascites. Pulses: Dorsalis pedis and posterior tibial pulses +1 to +2 both sides. ABDOMEN: Soft. Non-tender. Bowel sounds active. No CVA tenderness. No mass felt. EXTREMITIES: No edema right lower extremity. 1cm puncture with scabbing, minimal erythema. Right forearm 6in erythema. Full range of motion of all extremities, equal. NEUROLOGIC: No focal deficit. Cranial nerves II through XII are grossly intact. No headache. No double vision. SKIN: Not dry. Intact. Turgor-normal. LYMPHATIC: No palpable lymph nodes/no lymphedema. MUSCULOSKELETAL: Normal joints with no swelling. Muscle tone is normal. LAB REVIEW: 08/19/20 04:43 08/19/20 04:43 08/19/20 04:43: Sodium 138.2, Potassium 3.85, Chloride 100.0, Carbon Dioxide 36.4 H, Anion Gap 5.65, BUN 16.6, Creatinine 1.26 H, Estimated GFR (MDRD) 58.00, BUN/Creatinine Ratio 13.17, Glucose 98.9, Calcium 8.76, Total Bilirubin 0.39, AST 18.7, ALT 9.6, Alkaline Phosphatase 107.1, Total Protein 6.60, Albumin 3.50, Globulin 3.10, Albumin/Globulin Ratio 1.12 08/19/20 04:43: WBC 8.68, RBC 5.17, Hgb 14.5, Hct 45.0, MCV 87.0, MCH 28.0, MCHC 32.2, RDW Coeff of Lety 14.1, Plt Count 216, Immature Gran % (Auto) 0.3, Neut % (Auto) 58.6, Lymph % (Auto) 31.0, Cass % (Auto) 6.0, Eos % (Auto) 3.5, Baso % (Auto) 0.6, Neut # (Auto) 5.1, Lymph # (Auto) 2.7, Cass # (Auto) 0.5, Eos # (Auto) 0.3, Baso # (Auto) 0.1, Immature Gran # (Auto) 0.0 08/18/20 04:51: Free T4 1.21 ASSESSMENT: Please see below. 1. Right lower extremity cellulitis 2. Right forearm phlebitis 3. Severe COPD 4. Peripheral vascular disease. PLAN: 1. Continue Keflex and Doxycycline. Plan and coordination of the patient's care discussed in the presence of Ceramics Machine Operator and nurse. SCRIBED BY: Sharon CLARK scribed while in presence of service performed by Dr. De La Paz/Charo Collins APRN on 08/19/20 ([id number])
[2020-08-19] MEDS ORDERED: ZOFRAN TAB PO ONE (13:00)
--- NOTE | 2020-08-19 14:12 | PN ---
DATE OF SERVICE: 08/18/2020 SUBJECTIVE: 60 year old white male hospitalized with right lower extremity cellulitis. The patient's scab has come out and puss came out. Looks dry. No ulcer formation noted. No cellulitis. REVIEW OF SYSTEMS: CONSTITUTIONAL: No night sweats. No fatigue, malaise, lethargy. No fever or chills. HEENT: Eyes: No visual changes. No eye pain. No eye discharge. ENT: No runny nose. No epistaxis. No sinus pain. No sore throat. No odynophagia. No congestion. RESPIRATORY: No cough, no congestion. No hemoptysis. No shortness of breath. CARDIOVASCULAR: No angina symptoms. No CHF symptoms. No atypical chest pain for CAD. No palpitations. No PND. No orthopnea. GASTROINTESTINAL: No abdominal pain. No nausea or vomiting. No diarrhea or constipation. No hematemesis. No hematochezia. GENITOURINARY: No urgency. No frequency. No dysuria. No hematuria. No obstructive symptoms. No discharge. No pain. No significant abnormal bleeding. MUSCULOSKELETAL: No musculoskeletal pain; no joint swelling. Leg cramps. NEUROLOGICAL: No headache. No neck pain. No syncope. No seizures. No dizziness. PSYCHIATRIC: Not anxious. No depression. No suicidal thoughts. No homicidal thoughts. SKIN: No rash. No lesions. No wounds. ENDOCRINE: No unexplained weight loss. No weight gain. HEMATOLOGIC/LYMPHATIC: No anemia. No purpura. No petechiae. No prolonged or excessive bleeding. No palpable lymph nodes. PHYSICAL EXAMINATION: VITAL SIGNS: Temperature 97.5, pulse 66, respiratory rate 18, blood pressure 133/83 and pulse ox 92% on room air. HEENT: Head normocephalic, atraumatic. Eyes: Extraocular muscles are intact. Pupils are equal, round and reactive to light and accommodation. Ears: No lesions. Nose appeared normal. Throat: No exudate or erythema. NECK: Supple. No JVD, no carotid bruit. No lymphadenopathy or thyromegaly. LUNGS: Decreased breath sounds but clear to auscultation. Percussion note normal. Chest symmetrical. HEART: S1, S2, no S3. No murmurs. No cyanosis or clubbing. No ascites. Pulses: Dorsalis pedis and posterior tibial pulses +1 to +2 bilaterally. ABDOMEN: Soft. Nontender. Bowel sounds active. No CVA tenderness. No mass felt. EXTREMITIES: No edema. Full range of motion of all extremities, equal. NEUROLOGIC: No focal deficit. Cranial nerves II through XII are grossly intact. No headache. No double vision. SKIN: Not dry. Intact. Turgor - normal. LYMPHATIC: No palpable lymph nodes/no lymphedema. MUSCULOSKELETAL: Normal joints with no swelling. Muscle tone is normal. LABS: Hgb 14.8, hct 45, WBC 8,600 normal differential, creatinine 1.2, BUN 14, potassium 3.8 ASSESSMENT: 1. Cellulitis of right lower extremity seems to be resolving PLAN: 1. Continue Doxycycline now PO twice a day 2. Discontinue the IV Doxycycline 3. Discontinue IV Rocephin 4. Keflex 500mg PO TID TIME SPENT: More than 30 minutes. Plan and coordination of the patient's care discussed in the presence of nurse. MTDD
[2020-08-19] MEDS: FLOMAX PO SCH (17:17)
[2020-08-19] MEDS: AMBIEN PO SCH (20:33)
[2020-08-19] MEDS: NORVASC PO SCH (20:33)
[2020-08-19] MEDS: PAMELOR PO SCH (20:34)
[2020-08-19] MEDS: REQUIP PO SCH (20:34)
[2020-08-19] MEDS: DESYREL PO SCH (20:34)
[2020-08-19] MEDS ORDERED: MYLANTA SUSP PO PRN (21:32)
[2020-08-19] MEDS ORDERED: VISTARIL PO PRN (22:44)
[2020-08-20 04:59] LABS: BASOPHILS # (AUTO) 0.1 K/uL (0-0.2); BASOPHILS % (AUTO) 0.6 % (0.0-3.0); EOSINOPHILS # (AUTO) 0.3 K/ul (0.0-0.7); EOSINOPHILS % (AUTO) 3.1 % (0.0-7.0); HEMOGLOBIN 14.5 g/dl (14.0-18.0); IMMATURE GRANULOCYTE % (AUTO) 0.4 % (0.0-5.0); LYMPHOCYTES # (AUTO) 2.2 K/uL (0.60-3.4); LYMPHOCYTES % (AUTO) 21.6 (10.0-50.0); MEAN CORPUSCULAR HEMOGLOBIN 27.9 pg (27.0-31.0); MEAN CORPUSCULAR HGB CONC 32.2 (31.8-35.4); MEAN CORPUSCULAR VOLUME 86.7 fl (80.0-94.0); MONOCYTES # (AUTO) 0.6 K/uL (0.4-2.0); MONOCYTES % (AUTO) 6.4 (0-10); NEUTROPHILS # (AUTO) 6.8 K/ul (2.0-6.9); NEUTROPHILS % (AUTO) 67.9 % (42.2-75.2); PLATELET COUNT 216 10^3/uL (140-440); RDW COEFFICIENT OF VARIATION 14.2 % (11.6-14.8); RED BLOOD COUNT 5.19 10^6/ul (4.70-6.10); WHITE BLOOD COUNT 10.06 K/ul (4.2-10.2)
[2020-08-20] MEDS: OXYCODONE PO PRN ×4 (05:02→23:46)
[2020-08-20 05:14] LABS: ALBUMIN 3.48 g/dL (3.5-5.0); ALKALINE PHOSPHATASE 118.3 U/L (56-119); ASPARTATE AMINO TRANSFERASE 20.5 U/L (17-59); BILIRUBIN,TOTAL 0.51 mg/dL (0.2-1.3); BLOOD UREA NITROGEN 17.1 mg/dL (9-20); CALCIUM 8.9 mg/dL (8.4-10.2); CARBON DIOXIDE 39.5 mmol/L (22-30.0); CHLORIDE 98.9 mmol/L (98-107); CREATININE 1.27 mg/dL (0.60-1.10); GLUCOSE 101.8 mg/dL (74-106); POTASSIUM 4.36 mmol/L (3.5-5.1); TOTAL PROTEIN 6.56 g/dL (6.3-8.2)
[2020-08-20] MEDS: PRILOSEC PO SCH (05:52)
[2020-08-20] MEDS: LASIX TAB PO SCH (05:52)
[2020-08-20] MEDS ORDERED: VISTARIL PO SCH (09:00)
[2020-08-20] MEDS: ASPIRIN CHEWABLE PO SCH (09:47)
[2020-08-20] MEDS: MS CONTIN PO SCH ×2 (09:47→20:25)
[2020-08-20] MEDS: LIPITOR PO SCH (09:47)
[2020-08-20] MEDS: XANAX PO SCH ×3 (09:48→20:24)
[2020-08-20] MEDS: PLAVIX PO SCH (09:48)
[2020-08-20] MEDS: LOPRESSOR PO SCH ×2 (09:48→20:25)
[2020-08-20] MEDS: PROTONIX PO SCH ×2 (09:48→17:09)
[2020-08-20] MEDS: K-DUR PO SCH ×2 (09:48→17:09)
[2020-08-20] MEDS: ZETIA PO SCH (09:48)
[2020-08-20] MEDS: KEFLEX PO SCH ×3 (09:48→20:25)
[2020-08-20] MEDS: CATAPRES PO SCH ×2 (09:48→20:24)
[2020-08-20] MEDS: BACTROBAN TP SCH ×2 (09:51→20:26)
[2020-08-20] MEDS: LOTRISONE 45 GM TP SCH ×2 (09:51→20:27)
--- NOTE | 2020-08-20 10:02 | PCM.PROG ---
Attending Provider: ATTENDING PROVIDER: Dr. CARLOS DE LA PAZ This patient is seen with Charo Collins, Nurse Practitioner. DATE OF SERVICE: 08/20/20 SUBJECTIVE: This 60 year old /WHITE M was hospitalized 08/15/20. The patient is resting comfortably in bed. He has slightly increased redness right lower extremity complaining of worsening tenderness in both legs. No fever. REVIEW OF SYSTEMS: CONSTITUTIONAL: No night sweats. No fatigue, malaise, lethargy. No fever or chills. HEENT: Eyes: No visual changes. No eye pain. No eye discharge. ENT: No runny nose. No epistaxis. No sinus pain. No odynophagia. No congestion. RESPIRATORY: No cough, no congestion. No hemoptysis. No shortness of breath. CARDIOVASCULAR: No angina symptoms. No CHF symptoms. No atypical chest pain for CAD. No palpitations. No orthopnea.. GASTROINTESTINAL: No abdominal pain. No nausea or vomiting. No diarrhea or constipation. No hematemesis. No hematochezia. GENITOURINARY: No urgency. No frequency. No dysuria. No hematuria. No obstructive symptoms. No discharge. No pain. No significant abnormal bleeding. MUSCULOSKELETAL: Leg pain. NEUROLOGICAL: Awake, alert, oriented to time, place and person. No headache. No neck pain. No syncope. No seizures. No dizziness. PSYCHIATRIC: Not anxious. No depression. No suicidal thoughts. No homicidal thoughts. SKIN: No rash. No lesions. No wounds. Erythema right lower extremity. ENDOCRINE: No unexplained weight loss. No weight gain. HEMATOLOGIC/LYMPHATIC: No anemia. No purpura. No petechiae. No prolonged or excessive bleeding. No palpable lymph nodes. PHYSICAL EXAMINATION: GENERAL: The patient is awake, alert and oriented, lying/sitting in bed in no distress. VITAL SIGNS: Temperature 97.7 F, Pulse 66, Respiratory Rate 18, BP 108/69, Pulse Ox 90% HEENT: Head normocephalic, atraumatic. Eyes: Extraocular muscles are intact. Pupils are equal, round and reactive to light and accommodation. Ears: No lesions. Nose appeared normal. Throat: No exudate or erythema. NECK: Supple. No JVD, no carotid bruit. No lymphadenopathy or thyromegaly. LUNGS: Diminished breath sounds. Clear to auscultation. Percussion note normal. Chest symmetrical. HEART: S1, S2, no S3. No murmurs. No cyanosis or clubbing. No ascites. Pulses: Dorsalis pedis and posterior tibial pulses +2 bilateral lower extremities. ABDOMEN: Soft. Non-tender. Bowel sounds active. No CVA tenderness. No mass felt. EXTREMITIES: 1 cm area abrasion with approximately 2" of erythema right leg medial aspect. Tenderness both calves. Full range of motion of all extremities, equal. NEUROLOGIC: No focal deficit. Cranial nerves II through XII are grossly intact. No headache. No double vision. SKIN: Not dry. Intact. Turgor-normal. LYMPHATIC: No palpable lymph nodes/no lymphedema. MUSCULOSKELETAL: Normal joints with no swelling. Muscle tone is normal. LAB REVIEW: 08/20/20 04:45 08/20/20 04:45 08/20/20 04:45: Sodium 138.0, Potassium 4.36, Chloride 98.9, Carbon Dioxide 39.5 H, Anion Gap 3.96, BUN 17.1, Creatinine 1.27 H, Estimated GFR (MDRD) 57.00, BUN/Creatinine Ratio 13.46, Glucose 101.8, Calcium 8.90, Total Bilirubin 0.51, AST 20.5, ALT 10.0, Alkaline Phosphatase 118.3, Total Protein 6.56, Albumin 3.48 L, Globulin 3.08, Albumin/Globulin Ratio 1.12 08/20/20 04:45: WBC 10.06, RBC 5.19, Hgb 14.5, Hct 45.0, MCV 86.7, MCH 27.9, MCHC 32.2, RDW Coeff of Lety 14.2, Plt Count 216, Immature Gran % (Auto) 0.4, Neut % (Auto) 67.9, Lymph % (Auto) 21.6, Sharkey % (Auto) 6.4, Eos % (Auto) 3.1, Baso % (Auto) 0.6, Neut # (Auto) 6.8, Lymph # (Auto) 2.2, Sharkey # (Auto) 0.6, Eos # (Auto) 0.3, Baso # (Auto) 0.1, Immature Gran # (Auto) 0.0 08/17/20 05:05: Thyroxine (T4) 6.8 ASSESSMENT: Please see below. 1. Right lower extremity cellulitis. 2. Leg tenderness. 3. Peripheral arterial disease/peripheral vascular disease. 4. Leg tenderness. 5. Hypertension. PLAN: 1. Repeat bilateral lower extremity venous scan. 2. Discontinue Omeprazole. 3. Protonix 40 mg b.i.d. 4. Restart Doxycycline IV. 5. Discontinue P.O Doxycycline 6. Bactroban ointment b.i.d. Plan and coordination of the patient's care discussed in the presence of Correctional Counselor and nurse. CONDITION: Stable SCRIBED BY: Sharon FRYE scribed while in presence of service performed by Dr. De La Paz/Charo Collins APRN on 08/20/20 ([id number])
[2020-08-20] MEDS: DOXY-100 100 MG in SODIUM CHLORIDE 100 ML IV SCH ×2 (11:10→20:23)
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
--- NOTE | 2020-08-20 12:29 | US ---
EXAM: Ultrasound venous Doppler bilateral lower extermity HISTORY: Bilateral leg pain, evaluate for DVT COMPARISON: 08/15/2020 TECHNIQUE: Venous duplex ultrasound of the bilateral lower extremity was performed using color, yepez -scale, and Doppler flow imaging. FINDINGS: There is normal color flow and compression of the bilateral common femoral, greater saphen ous, profunda femoral, femoral, popliteal, peroneal, posterior tibial, and anterior tibial veins with out evidence of intraluminal thrombus. IMPRESSION: No evidence of DVT within the bilateral lower extremities.
[2020-08-20] MEDS: MIRALAX PO PRN (15:39)
[2020-08-20] MEDS: FLOMAX PO SCH (17:10)
[2020-08-20] MEDS: PAMELOR PO SCH (20:24)
[2020-08-20] MEDS: DESYREL PO SCH (20:24)
[2020-08-20] MEDS: AMBIEN PO SCH (20:25)
[2020-08-20] MEDS: REQUIP PO SCH (20:25)
[2020-08-20] MEDS: NORVASC PO SCH (20:26)
[2020-08-21 04:52] LABS: BASOPHILS # (AUTO) 0.1 K/uL (0-0.2); BASOPHILS % (AUTO) 0.7 % (0.0-3.0); EOSINOPHILS # (AUTO) 0.3 K/ul (0.0-0.7); EOSINOPHILS % (AUTO) 3.6 % (0.0-7.0); HEMATOCRIT 42.9 % (42.0-52.0); HEMOGLOBIN 13.8 g/dl (14.0-18.0); IMMATURE GRANULOCYTE % (AUTO) 0.2 % (0.0-5.0); LYMPHOCYTES # (AUTO) 2.8 K/uL (0.60-3.4); MEAN CORPUSCULAR HGB CONC 32.2 (31.8-35.4); MONOCYTES # (AUTO) 0.7 K/uL (0.4-2.0); MONOCYTES % (AUTO) 8.2 (0-10); NEUTROPHILS # (AUTO) 4.9 K/ul (2.0-6.9); NEUTROPHILS % (AUTO) 55.3 % (42.2-75.2); PLATELET COUNT 209 10^3/uL (140-440); RED BLOOD COUNT 4.93 10^6/ul (4.70-6.10)
[2020-08-21 05:06] LABS: ALANINE AMINOTRANSFERASE 9.4 U/L (0-50); ALBUMIN 3.42 g/dL (3.5-5.0); ALKALINE PHOSPHATASE 108.7 U/L (56-119); ASPARTATE AMINO TRANSFERASE 19.2 U/L (17-59); BILIRUBIN,TOTAL 0.48 mg/dL (0.2-1.3); BLOOD UREA NITROGEN 17.4 mg/dL (9-20); CALCIUM 8.78 mg/dL (8.4-10.2); CARBON DIOXIDE 39.1 mmol/L (22-30.0); CREATININE 1.3 mg/dL (0.60-1.10); GLUCOSE 96.7 mg/dL (74-106); POTASSIUM 3.96 mmol/L (3.5-5.1); TOTAL PROTEIN 6.47 g/dL (6.3-8.2)
[2020-08-21] MEDS: LASIX TAB PO SCH (06:12)
[2020-08-21] MEDS: PROTONIX PO SCH ×2 (06:12→17:31)
[2020-08-21] MEDS: OXYCODONE PO PRN ×2 (06:15→10:35)
--- NOTE | 2020-08-21 08:55 | PN ---
DATE OF SERVICE: 08/20/2020 SUBJECTIVE: The patient had some swelling of the right leg. Do venous scan, repeat. He was seen and examined with the Nurse Practitioner. We will continue Doxycycline. May require Wound Care. CONDITION: Stable. TIME SPENT: More than 30 minutes. Plan and coordination of the patient's care discussed in the presence of nurse. REENA
[2020-08-21] MEDS: ZETIA PO SCH (09:00)
[2020-08-21] MEDS: MS CONTIN PO SCH ×2 (09:00→20:25)
[2020-08-21] MEDS: K-DUR PO SCH ×2 (09:01→17:31)
[2020-08-21] MEDS: DOXY-100 100 MG in SODIUM CHLORIDE 100 ML IV SCH ×2 (09:01→20:27)
[2020-08-21] MEDS: KEFLEX PO SCH ×3 (09:01→20:25)
[2020-08-21] MEDS: ASPIRIN CHEWABLE PO SCH (09:01)
[2020-08-21] MEDS: LIPITOR PO SCH (09:01)
[2020-08-21] MEDS: CATAPRES PO SCH ×2 (09:01→20:26)
[2020-08-21] MEDS: LOPRESSOR PO SCH ×2 (09:01→20:25)
[2020-08-21] MEDS: PLAVIX PO SCH (09:01)
[2020-08-21] MEDS: XANAX PO SCH ×3 (09:01→20:26)
[2020-08-21] MEDS: LOTRISONE 45 GM TP SCH ×2 (09:04→20:27)
[2020-08-21] MEDS: BACTROBAN TP SCH ×2 (09:04→20:26)
--- NOTE | 2020-08-21 11:54 | RS.OTINEVL ---
Subjective - Patient information Date of Evaluation: 08/21/20 Date of Arrival on Unit: 08/15/20 Admitted From:: Home Diagnosis: BLE Cellulitis, chills, redness, pain PRECAUTIONS: edema and pain in BLE Usual Living Arrangement: With Spouse Living Arrangement Comments: Children and grandchildren are at home Home Environment: House, Stairs (few), Rail Medical History: Hypertension, CVA/TIA, COPD, Arthritis Medical History Comments:: DDD, MT, CAD LATEX ALLERGY?: No Surgical History: Lumbar Spine, Cholecystectomy Surgical History Comments:: coronary stent Medications: see chart Subjective Information/ Patient Comments:: Pt reports he has to have a cervical spine surgery due to limited cervical rotation. - Level of function Prior to this admission, the patient could do the following:: Independent Selfcare, Independent ADL's, Independent Ambulation Abilities prior to this admission: Walked with a cane, drove, independent with ADLS. Current Level of Function: Partially Dependent Current Equipment Used at Home: Cane, nebulizer, O2, walker Pain Assessment - Pain Pain Score: 9 Side: bilateral Pain Location Body Site: lower legs Pain Aggravating Factors: Standing Pain Alleviating Factors: Medication, Position Change, Lying Supine Interventions - Objective Patient Orientation: Person, Place, Time, Situation Current Interventions: IV's, Oxygen Observation: Pt has wounds on BLE. Pt has edema of BLE. Interventions - ROM Right Upper Extremity AROM: WFL's Left Upper Extremity AROM: WFL's - Strength Right Upper Extremity Strength: Mild Weakness Left Upper Extremity Strength: Mild Weakness - Sensation Right Upper Extremity Sensation: Intact/Normal Left Upper Extremity Sensation: Intact/Normal Balance - Sitting Balance Static Sitting Balance: Fair Dynamic Sitting Balance: Fair - Standing Balance Static Standing Balance: Fair Dynamic Standing Balance: Fair ADL Skills - Self Feeding Self Feeding: Independent - Grooming Grooming: Independent - Bathing Bathing UE: Independent Bathing LE: Min Assist - Dressing Dressing UE: Independent Dressing LE: Min Assist - Toilet Management Toileting Management: Min Assist Functional Mobility - Bed Mobility Rolling R/L: Independent Scooting: Independent Supine to Sit: Independent Sit to Supine: Independent - Transfers Sit to Stand: Min Assist Stand to Sit: Min Assist Stand Pivot Transfers: Min Assist - Ambulation Weight Bearing Status: FWB Assistive Device Used: Straight Cane Orthotic/Prosthetic Device: No Assistance needed with Ambulation: Min Assist, 1 person assist - Safety Awareness Safety Awareness: Good JASON INDEX SCORE: . Additional Treatment Performed - Time with patient Length of Evaluation: 19 Total treatment time: 20 Activities Do you enjoy playing games?: Yes Would you be interested in leaving your room for activities?: Yes Would you enjoy group activities?: Yes Patient Interests:: Watching Television, Visiting/Socializing Patient Education Patient Education: Education of diagnosis, Body/Joint mechanics Teaching Recipient: Patient Teaching Methods: Discussion, Demonstration Assessment Problem List:: Decreased level of function, Requires training/education, Decreased safety/Risk of falls, Weakness Rehab Potential: Good Further Therapy Indicated?: Yes Evaluation Complexity: HISTORY: Medium, EXAM OF BODY SYSTEMS: Medium, CLINICAL DECISION MAKING: Medium Patient's Goal(s): For his legs to stop hurting so he can walk better. Short Term Goals - Goals GOAL 1: Pt to increase sit to stand to CGA from EOB. Goal to be met by: 08/28/20 GOAL 2: Pt pain to decrease to 2-4/10 while in standing. Goal to be met by: 08/28/20 GOAL 3: Pt to complete toilet transfers CGA. Longterm Goals GOAL 1: Pt to decrease Pain of BLE to be 0-2/10. Goal to be met by: 08/28/20 GOAL 2: Pt to complete toilet transfers Mod-I. Goal to be met by: 08/28/20 GOAL 3: Pt to increase functional transfers to Mod-I with Rollator walker. Goal to be met by: 08/28/20 Plan Plan of Care: Therapeutic EX, Therapeutic Activity, Self-Care/Home Management Frequency of Treatment: 1-2 X day, as tolerated Duration of Treatment: 1 Week Anticipated Discharge Destination: Home Treatment Diagnosis (ICD 10 Codes): M62.81 Weakness Has the Physician been added for Co-signature?: Yes
--- NOTE | 2020-08-21 14:51 | PN ---
DATE OF SERVICE: 08/17/20 SUBJECTIVE: 60-year-old white male hospitalized with right lower extremity cellulitis. The patient was admitted with chills and fever. The patient's condition has improved. REVIEW OF SYSTEMS: CONSTITUTIONAL: No night sweats. No fatigue, malaise, lethargy. No fever or chills. HEENT: Eyes: No visual changes. No eye pain. No eye discharge. ENT: No runny nose. No epistaxis. No sinus pain. No sore throat. No odynophagia. No congestion. RESPIRATORY: No cough, no congestion. No hemoptysis. No shortness of breath. CARDIOVASCULAR: No angina symptoms. No CHF symptoms. No atypical chest pain for CAD. No palpitations. No PND. No orthopnea. GASTROINTESTINAL: Appetite better. No abdominal pain. No nausea or vomiting. No diarrhea or constipation. No hematemesis. No hematochezia. GENITOURINARY: No urgency. No frequency. No dysuria. No hematuria. No obstructive symptoms. No discharge. No pain. No significant abnormal bleeding. MUSCULOSKELETAL: The patient has cramping in the legs. NEUROLOGICAL: No headache. No neck pain. No syncope. No seizures. No dizziness. PSYCHIATRIC: Not anxious. No depression. No suicidal thoughts. No homicidal thoughts. SKIN: No rash. No lesions. No wounds. ENDOCRINE: No unexplained weight loss. No weight gain. HEMATOLOGIC/LYMPHATIC: No anemia. No purpura. No petechiae. No prolonged or excessive bleeding. No palpable lymph nodes. PHYSICAL EXAMINATION: VITAL SIGNS: Temperature 97.2, pulse 66, respiratory rate 18, blood pressure 136/77, pulse ox 94%. HEENT: Head normocephalic, atraumatic. Eyes: Extraocular muscles are intact. Pupils are equal, round and reactive to light and accommodation. Ears: No lesions. Nose appeared normal. Throat: No exudate or erythema. NECK: Supple. No JVD, no carotid bruit. No lymphadenopathy or thyromegaly. LUNGS: Clear to auscultation. Percussion note normal. Chest symmetrical. HEART: S1, S2, no S3. No murmurs. No cyanosis or clubbing. No ascites. Pulses: Dorsalis pedis and posterior tibial pulses +1 to +2 bilaterally. ABDOMEN: Soft. Nontender. Bowel sounds active. No CVA tenderness. No mass felt. EXTREMITIES: Right lower leg with practically trace edema. No swelling, no drainage noted. Cellulitis under control. Full range of motion of all extremities, equal. NEUROLOGIC: No focal deficit. Cranial nerves II through XII are grossly intact. No headache. No double vision. SKIN: Not dry. Intact. Turgor - normal. LYMPHATIC: No palpable lymph nodes/no lymphedema. MUSCULOSKELETAL: Normal joints with no swelling. Muscle tone is normal. LABS: Hemoglobin 14, hematocrit 44, WBC 8,000, normal differential. Creatinine 1.1, BUN 11, potassium 3.4. ASSESSMENT: 1. Cellulitis involving right lower extremity has resolved. Clinically dependent edema has resolved. 2. Hypokalemia will be treated with KCL 20 mEQ twice a day. 3. CBC, CMP, T4, TSH. 4. Elevate the legs. 5. Cut down on salt intake. 6. The patient is strongly advised to lose weight, BMI 33. Diet for weight loss discussed. TIME SPENT: More than 30 minutes. Plan and coordination of the patient's care discussed in the presence of nurse. REENA
[2020-08-21] MEDS: FLOMAX PO SCH (17:31)
[2020-08-21] MEDS: DESYREL PO SCH (20:24)
[2020-08-21] MEDS: AMBIEN PO SCH (20:25)
[2020-08-21] MEDS: NORVASC PO SCH (20:25)
[2020-08-21] MEDS: REQUIP PO SCH (20:25)
[2020-08-21] MEDS: PAMELOR PO SCH (20:26)
[2020-08-22] MEDS: OXYCODONE PO PRN ×4 (00:25→16:49)
[2020-08-22 05:14] LABS: BASOPHILS # (AUTO) 0.1 K/uL (0-0.2); BASOPHILS % (AUTO) 0.7 % (0.0-3.0); EOSINOPHILS # (AUTO) 0.3 K/ul (0.0-0.7); EOSINOPHILS % (AUTO) 3.3 % (0.0-7.0); HEMATOCRIT 41.9 % (42.0-52.0); HEMOGLOBIN 13.3 g/dl (14.0-18.0); IMMATURE GRANULOCYTE % (AUTO) 0.3 % (0.0-5.0); LYMPHOCYTES # (AUTO) 2.6 K/uL (0.60-3.4); LYMPHOCYTES % (AUTO) 29.9 (10.0-50.0); MEAN CORPUSCULAR HEMOGLOBIN 27.8 pg (27.0-31.0); MEAN CORPUSCULAR HGB CONC 31.7 (31.8-35.4); MEAN CORPUSCULAR VOLUME 87.7 fl (80.0-94.0); MONOCYTES # (AUTO) 0.7 K/uL (0.4-2.0); MONOCYTES % (AUTO) 7.6 (0-10); NEUTROPHILS # (AUTO) 5.1 K/ul (2.0-6.9); NEUTROPHILS % (AUTO) 58.2 % (42.2-75.2); PLATELET COUNT 202 10^3/uL (140-440); RDW COEFFICIENT OF VARIATION 13.9 % (11.6-14.8); RED BLOOD COUNT 4.78 10^6/ul (4.70-6.10)
[2020-08-22] MEDS: PROTONIX PO SCH ×2 (05:31→16:22)
[2020-08-22] MEDS: LASIX TAB PO SCH (05:32)
[2020-08-22] MEDS: MILK OF MAGNESIA PO SCH ×2 (05:34→09:19)
[2020-08-22 05:35] LABS: ALANINE AMINOTRANSFERASE 8.1 U/L (0-50); ALBUMIN 3.31 g/dL (3.5-5.0); ASPARTATE AMINO TRANSFERASE 18.7 U/L (17-59); BILIRUBIN,TOTAL 0.37 mg/dL (0.2-1.3); BLOOD UREA NITROGEN 16.6 mg/dL (9-20); CALCIUM 8.77 mg/dL (8.4-10.2); CARBON DIOXIDE 36.7 mmol/L (22-30.0); CHLORIDE 101.7 mmol/L (98-107); CREATININE 1.21 mg/dL (0.60-1.10); GLUCOSE 91.9 mg/dL (74-106); POTASSIUM 4.34 mmol/L (3.5-5.1); SODIUM 139.4 mmol/L (134.5-145); TOTAL PROTEIN 6.31 g/dL (6.3-8.2)
--- NOTE | 2020-08-22 09:12 | PCM.PROG ---
Attending Provider: ATTENDING PROVIDER: Dr. CARLOS DE LA PAZ This patient is seen with Charo Collins, Nurse Practitioner. DATE OF SERVICE: 08/22/20 SUBJECTIVE: This 60 year old /WHITE M was hospitalized 08/15/20. The patient is resting comfortably. Area of redness improved on lower extremity still with significant tenderness. The patient is to see [facility] tomorrow. REVIEW OF SYSTEMS: CONSTITUTIONAL: No night sweats. No fatigue, malaise, lethargy. No fever or chills. HEENT: Eyes: No visual changes. No eye pain. No eye discharge. ENT: No runny nose. No epistaxis. No sinus pain. No odynophagia. No congestion. RESPIRATORY: No cough, no congestion. No hemoptysis. No shortness of breath. CARDIOVASCULAR: No angina symptoms. No CHF symptoms. No atypical chest pain for CAD. No palpitations. No orthopnea.. GASTROINTESTINAL: No abdominal pain. No nausea or vomiting. No diarrhea or constipation. No hematemesis. No hematochezia. GENITOURINARY: No urgency. No frequency. No dysuria. No hematuria. No obstructive symptoms. No discharge. No pain. No significant abnormal bleeding. MUSCULOSKELETAL: No musculoskeletal pain; no joint swelling. Right leg pain. NEUROLOGICAL: Awake, alert, oriented to time, place and person. No headache. No neck pain. No syncope. No seizures. No dizziness. PSYCHIATRIC: Not anxious. No depression. No suicidal thoughts. No homicidal thoughts. SKIN: No rash. No lesions. No wounds. ENDOCRINE: No unexplained weight loss. No weight gain. HEMATOLOGIC/LYMPHATIC: No anemia. No purpura. No petechiae. No prolonged or excessive bleeding. No palpable lymph nodes. PHYSICAL EXAMINATION: GENERAL: The patient is awake, alert and oriented, lying in bed in no distress. VITAL SIGNS: Temperature 97.7 F, Pulse 59, Respiratory Rate 18, BP 121/74, Pulse Ox 91% HEENT: Head normocephalic, atraumatic. Eyes: Extraocular muscles are intact. Pupils are equal, round and reactive to light and accommodation. Ears: No lesions. Nose appeared normal. Throat: No exudate or erythema. NECK: Supple. No JVD, no carotid bruit. No lymphadenopathy or thyromegaly. LUNGS: Diminished breath sounds. Clear to auscultation. Percussion note normal. Chest symmetrical. HEART: S1, S2, no S3. No murmurs. No cyanosis or clubbing. No ascites. Pulses: Dorsalis pedis and posterior tibial pulses +1 to +2 both sides. ABDOMEN: Soft. Non-tender. Bowel sounds active. No CVA tenderness. No mass felt. EXTREMITIES: No edema. Full range of motion of all extremities, equal. 1cm area of abrasion with about 1 inch area of induration right lower extremity. Minimal erythemia. NEUROLOGIC: No focal deficit. Cranial nerves II through XII are grossly intact. No headache. No double vision. SKIN: Not dry. Intact. Turgor-normal. LYMPHATIC: No palpable lymph nodes/no lymphedema. MUSCULOSKELETAL: Normal joints with no swelling. Muscle tone is normal. LAB REVIEW: 08/22/20 04:40 08/22/20 04:40 08/22/20 04:40: Sodium 139.4, Potassium 4.34, Chloride 101.7, Carbon Dioxide 36.7 H, Anion Gap 5.34, BUN 16.6, Creatinine 1.21 H, Estimated GFR (MDRD) 61.00, BUN/Creatinine Ratio 13.71, Glucose 91.9, Calcium 8.77, Total Bilirubin 0.37, AST 18.7, ALT 8.1, Alkaline Phosphatase 108.0, Total Protein 6.31, Albumin 3.31 L, Globulin 3.00, Albumin/Globulin Ratio 1.10 08/22/20 04:40: WBC 8.70, RBC 4.78, Hgb 13.3 L, Hct 41.9 L, MCV 87.7, MCH 27.8, MCHC 31.7 L, RDW Coeff of Lety 13.9, Plt Count 202, Immature Gran % (Auto) 0.3, Neut % (Auto) 58.2, Lymph % (Auto) 29.9, [place] % (Auto) 7.6, Eos % (Auto) 3.3, Baso % (Auto) 0.7, Neut # (Auto) 5.1, Lymph # (Auto) 2.6, [place] # (Auto) 0.7, Eos # (Auto) 0.3, Baso # (Auto) 0.1, Immature Gran # (Auto) 0.0 ASSESSMENT: Please see below. 1. Right lower extremity cellulitis 2. Chronic kidney disease stage 2 3. Hypertension PLAN: 1. Will do Doxycycline this morning and then again at 5pm.The patient to be discharged home after that. 2. Appointment with [facility] tomorrow 3. Doxycycline 100mg BID for 10 days 4. Keep legs elevated 5. Keep area clean and dry. Plan and coordination of the patient's care discussed in the presence of Associate Programmer Analyst and nurse. SCRIBED BY: Sharon CLARK scribed while in presence of service performed by Dr. De La Paz/Charo Collins APRN on 08/22/20 ([id number])
[2020-08-22] MEDS: DOXY-100 100 MG in SODIUM CHLORIDE 100 ML IV SCH (09:19)
[2020-08-22] MEDS: ASPIRIN CHEWABLE PO SCH (09:20)
[2020-08-22] MEDS: CATAPRES PO SCH (09:20)
[2020-08-22] MEDS: LOPRESSOR PO SCH (09:20)
[2020-08-22] MEDS: ZETIA PO SCH (09:21)
[2020-08-22] MEDS: XANAX PO SCH ×2 (09:21→16:22)
[2020-08-22] MEDS: KEFLEX PO SCH ×2 (09:22→16:21)
[2020-08-22] MEDS: LIPITOR PO SCH (09:22)
[2020-08-22] MEDS: MS CONTIN PO SCH (09:22)
[2020-08-22] MEDS: K-DUR PO SCH ×2 (09:23→16:22)
[2020-08-22] MEDS: PLAVIX PO SCH (09:23)
[2020-08-22] MEDS: BACTROBAN TP SCH (09:30)
[2020-08-22] MEDS: LOTRISONE 45 GM TP SCH (09:31)
--- NOTE | 2020-08-22 10:26 | PN ---
DATE OF SERVICE: 08/19/20 SUBJECTIVE: The patient was seen and examined with the nurse practitioner. The patient's condition is improving. Cellulitis is resolving. Likely discharge tomorrow. TIME SPENT: More than 30 minutes. Plan and coordination of the patient's care discussed in the presence of nurse. REENA
--- NOTE | 2020-08-22 11:42 | CM.DICTOOL ---
ADMISSION: 08/15/20 13:32 DISCHARGE: AUGUST 22, 2020 DATE OF SERVICE: 08/22/20 FINAL DIAGNOSIS RT LOWER EXTREMITY CELLULITIS,CHILLS,REDNESS AND PAIN PERIPHERAL ARTERIAL DISEASE CHRONIC KIDNEY DISEASE STAGE 2 HYPERTENSION SEVERE COPD HX: COPD WITH O2 AT NIGHT [place] CAD MIGRAINES CHRONIC RETINAL DETACHMENT- DR. SANTOS CHRONIC BACK PAIN HYPERGLYCEMIA LEG EDEMA CHRONIC BRONCHITIS RIGHT RENAL ARTERY STENOSIS , STENTS, 2007 SMOKING CHRONIC KIDNEY DISEASE STAGE 3 NON-COMPLIANCE WITH DIET, LIFESTYLE AND MEDS CVA-DR. SANTOS HYPERTENSION B 12 DEFICIENCY DYSLIPIDEMIA LEFT CHOLESTEATOMA DEPRESSION SLEEP APNEA - USES O2 REFUSED A CPAP INSOMNIA SURGERIES: BACK SURGERY - 1999 L-SPINE SURGERY 2001- DR. LAW RENAL ARTERY STENT - 2000,2002, AND 2006 GALLBLADDER - 2003 HERNIA - 2003 CODE STATUS: FULL CODE LAST VITALS Temp Pulse Resp BP Pulse Ox 97.7 F 59 L 18 121/74 94 L 08/22/20 05:09 08/22/20 05:09 08/22/20 05:09 08/22/20 05:09 08/22/20 10:00 TAKE THESE MEDICATIONS AT HOME Acetaminophen (Acetaminophen 325 Mg Tablet) 650 mg PO Q4H PRN PRN Reason: Headache Al Hydroxide/Mg Hydroxide (Mag Hydrox/Al Hydrox/Simeth 30 Ml Cup) 30 ml PO DAILY PRN PRN Reason: Heartburn Alprazolam (Alprazolam 0.5 Mg Tablet) 0.5 mg PO TID [facility] Last Admin: 08/22/20 09:21 Dose: 0.5 mg Documented by: Amlodipine Besylate (Amlodipine Besylate 5 Mg Tablet) 5 mg PO BEDTIME [facility] Last Admin: 08/21/20 20:25 Dose: 5 mg Documented by: Aspirin (Aspirin 81 Mg Tab.Chew) 81 mg PO DAILYWM [facility] Last Admin: 08/22/20 09:20 Dose: 81 mg Documented by: Atorvastatin Calcium (Atorvastatin Calcium 20 Mg Tablet) 40 mg PO DAILY [facility] Last Admin: 08/22/20 09:22 Dose: 40 mg Documented by: Clonidine (Clonidine Hcl 0.1 Mg Tablet) 0.2 mg PO BID [facility] Last Admin: 08/22/20 09:20 Dose: 0.2 mg Documented by: Clopidogrel Bisulfate (Clopidogrel Bisulfate 75 Mg Tablet) 75 mg PO DAILY [facility] Last Admin: 08/22/20 09:23 Dose: 75 mg Documented by: Clotrimazole (Clotrimazole/Betamethasone 45 Gm Cream) 1 applic TP BID [facility] Last Admin: 08/22/20 09:31 Dose: 1 applic Documented by: Ezetimibe (Ezetimibe 10 Mg Tablet) 10 mg PO DAILY [facility] Last Admin: 08/22/20 09:21 Dose: 10 mg Documented by: Furosemide (Furosemide 40 Mg Tablet) 40 mg PO QDAC [facility] Last Admin: 08/22/20 05:32 Dose: 40 mg Documented by: Metolazone (Metolazone 2.5 Mg Tablet) 2.5 mg PO MOWEFR PRN PRN Reason: EDEMA Metoprolol Tartrate (Metoprolol Tartrate 50 Mg Tablet) 50 mg PO BID [facility] Last Admin: 08/22/20 09:20 Dose: 50 mg Documented by: Morphine Sulfate (Morphine Sulfate 15 Mg Tablet.Er) 15 mg PO Q12HR [facility] Last Admin: 08/22/20 09:22 Dose: 15 mg Documented by: Mupirocin (Mupirocin 22 Gm Oint) 1 applic TP BID [facility] Stop: 08/23/20 08:59 Last Admin: 08/22/20 09:30 Dose: 1 applic Documented by: Nitroglycerin (Nitroglycerin 0.4 Mg Tab.Subl) 0.4 mg SL Q5MIN X 3 DOSES PRN PRN Reason: Chest Pain Nortriptyline HCl (Nortriptyline Hcl 10 Mg Capsule) 50 mg PO BEDTIME [facility] Last Admin: 08/21/20 20:26 Dose: 50 mg Documented by: Oxycodone HCl (Oxycodone Hcl 5 Mg Tablet) 30 mg PO Q4H PRN PRN Reason: BREAKTHROUGH PAIN Last Admin: 08/22/20 05:31 Dose: 30 mg Documented by: Pantoprazole Sodium (Pantoprazole Sodium 40 Mg Tablet.Dr) 40 mg PO BIDAC [facility] Last Admin: 08/22/20 05:31 Dose: 40 mg Documented by: Polyethylene Glycol (Polyethylene Glycol 17 Gm Powd.Pack) 17 gm PO BID PRN PRN Reason: Constipation Last Admin: 08/20/20 15:39 Dose: 17 gm Documented by: Potassium Chloride (Potassium Chloride 20 Meq Tab) 20 meq PO BIDWM [facility] Last Admin: 08/22/20 09:23 Dose: 20 meq Documented by: Ropinirole HCl (Ropinirole Hcl 1 Mg Tablet) 2 mg PO BEDTIME [facility] Last Admin: 08/21/20 20:25 Dose: 2 mg Documented by: Tamsulosin HCl (Tamsulosin Hcl 0.4 Mg Cap.Er.24h) 0.4 mg PO QPM [facility] Last Admin: 08/21/20 17:31 Dose: 0.4 mg Documented by: Trazodone HCl (Trazodone Hcl 50 Mg Tablet) 150 mg PO BEDTIME [facility] Last Admin: 08/21/20 20:24 Dose: 150 mg Documented by: Zolpidem Tartrate (Zolpidem Tartrate 5 Mg Tablet) 10 mg PO BEDTIME [facility] Last Admin: 08/21/20 20:25 Dose: 10 mg Documented by: DOXYCYCLINE 100 MG PO EVERY 12 HOURS X 10 DAYS, START 08/23/2020. ALLERGIES lisinopril [From Zestril] Adverse Reaction (Severe, Verified 08/10/20 20:35) Swelling baclofen Adverse Reaction (Verified 08/10/20 20:35) SHORT OF BREATH DISCONTINUED MEDICATIONS 1). POTASSIUM 20 MG DAILY 2). PROTONIX 20 MG DAILY NEW PRESCRIPTIONS: 1). DOXYCYCLINE 100 MG PO EVERY 12 HOURS X 10 DAYS, START 08/23/2020. 2). POTASSIUM 20 MEQ PO DAILY 3). PROTONIX 40 MG PO DAILY 4). REQUIP 2 MG PO AT BEDTIME 5). MYLANTA 30 ML DAILY PRN 6). BACTROBAN CREAM BID TOPICAL THIN LAYER ONLY TO PUNCTURE WOUND RT LEG SMOKING: N/A DISEASE SPECIFIC EDUCATION: SKIN INFECTION EDEMA COVID GERD LAB REVIEW: 08/22/20 04:40 08/22/20 04:40 08/22/20 04:40: Sodium 139.4, Potassium 4.34, Chloride 101.7, Carbon Dioxide 3 6.7 H, Anion Gap 5.34, BUN 16.6, Creatinine 1.21 H, Estimated GFR (MDRD) 61.00, BUN/Creatinine Ratio 13.71, Glucose 91.9, Calcium 8.77, Total Bilirubin 0.37, AST 18.7, ALT 8.1, Alkaline Phosphatase 108.0, Total Protein 6.31, Albumin 3.31 L, Globulin 3.00, Albumin/Globulin Ratio 1.10 08/22/20 04:40: WBC 8.70, RBC 4.78, Hgb 13.3 L, Hct 41.9 L, MCV 87.7, MCH 27.8, MCHC 31.7 L, RDW Coeff of Lety 13.9, Plt Count 202, Immature Gran % (Auto) 0.3, Neut % (Auto) 58.2, Lymph % (Auto) 29.9, [place] % (Auto) 7.6, Eos % (Auto) 3.3, Baso % (Auto) 0.7, Neut # (Auto) 5.1, Lymph # (Auto) 2.6, [place] # (Auto) 0.7, Eos # (Auto) 0.3, Baso # (Auto) 0.1, Immature Gran # (Auto) 0.0 PLAN: DISCHARGE HOME: 08/22/2020 RETURN HOME WITH SPOUSE [facility] SN, PT AND OT EVAL AND TREAT ACTIVITY: UP WITH CANE DIRECTED PER THERAPY ELEVATE LEGS ABOVE THE HIPS MUCH POSSIBLE FALL PRECAUTIONS OXYGEN PRECAUTIONS PROTECT LOWER EXTREMITIES, KEEP CLEAN AND FROM TRAUMA AND EXTREME TEMPERATURE CHANGES AND EXPOSURE DIET: HEART HEALTHY, NO SPICES AND LOW [place] MD FOLLOW - UP: SEE DR. DE LA PAZ/ SOLANGE GONZALES APRN/ TAMMY DGUGAN APRN IN THE OFFICE ON AUGUST 29, 2020 @ [address] SANTOS, NEUROLOGIST, FOLLOW UP SCHEDULED [facility] APPOINTMENT 08/23/2020 @ 145 PM CODE STATUS: FULL CODE HOME O2: 2 L/M PER N/C CONTINUOUS. HAS BEEN PROVIDED FROM [facility], FOLLOW GUIDELINES MR. DENISE IS ALERT AND ORIENTED X 4. HE IS ON OXYGEN AT ALL TIMES AND USES AT HOME, MAINLY AT NIGHT. SKIN WARM AND DRY AND INTACT. HE HAS A SEVERE DARK RED HEMOSIDERIN TO BILATERAL LEGS. TRACE EDEMA TO LEGS. RT MEDIAL LEG PUNCTURE WOUND CRUSTED OVER AND PERIMETER SWOLLEN AND FLUID FILLED. NUTRITIONAL INTAKE IS 75 TO 100% AND FLUID INTAKE SUBSTANTIAL WITH BALANCED I & O. CONTINENT OF BOWEL AND BLADDER. LAST BM 08/14/2020 AND STATES THAT IS NORMAL FOR HIM. HE REFUSED AN AGGRESSIVE BOWEL REGIMEN. HE IS UP WITH A CANE, HOWEVER INFREQUENT, UNSTEADY AND POOR ENDURANCE SINCE THIS EPISODE OF CELLULITIS TO HIS RT LEG. HE LIVES WITH SPOUSE AND GRANDCHILDREN. HAS AGREED TO F/U WITH [facility] TOMORROW AND [facility] FOR SN, PT AND OT. CARLOSMD SOLANGE LY APRN ALYCE HANNAN, APRN
[2020-08-22 15:03] VITALS: BP 142/64; TEMP 97.6
[2020-08-22] MEDS: FLOMAX PO SCH (16:22)
[2020-08-22] MEDS ORDERED: DOXY-100 100 MG in SODIUM CHLORIDE 100 ML IV ONE (17:00)
--- NOTE | 2020-08-23 13:40 | DS ---
DATE OF SERVICE: 08/22/2020 FINAL DIAGNOSIS: RT LOWER EXTREMITY CELLULITIS,CHILLS,REDNESS AND PAIN PERIPHERAL ARTERIAL DISEASE CHRONIC KIDNEY DISEASE STAGE 2 HYPERTENSION SEVERE COPD HISTORY: COPD WITH O2 AT NIGHT [place] CAD MIGRAINES CHRONIC RETINAL DETACHMENT- DR. SANTOS CHRONIC BACK PAIN HYPERGLYCEMIA LEG EDEMA CHRONIC BRONCHITIS RIGHT RENAL ARTERY STENOSIS , STENTS, 2007 SMOKING CHRONIC KIDNEY DISEASE STAGE 3 NON-COMPLIANCE WITH DIET, LIFESTYLE AND MEDS CVA-DR. SANTOS HYPERTENSION B 12 DEFICIENCY DYSLIPIDEMIA LEFT CHOLESTEATOMA DEPRESSION SLEEP APNEA - USES O2 REFUSED A CPAP INSOMNIA SURGERIES: BACK SURGERY - 1999 L-SPINE SURGERY 2000- DR. LAW RENAL ARTERY STENT - 2000,2002, AND 2006 GALLBLADDER - 2003 HERNIA - 2003 CODE STATUS: FULL CODE LAST VITALS: Temp Pulse Resp BP Pulse Ox 97.7 F 59 L 18 121/74 94 L 08/22/20 05:09 08/22/20 05:09 08/22/20 05:09 08/22/20 05:09 08/22/20 10:00 DISCHARGE INSTRUCTIONS: DISCHARGE HOME: 08/22/2020 RETURN HOME WITH SPOUSE; [facility] SN, PT AND OT EVAL AND TREAT. MD FOLLOW - UP: SEE DR. DE LA PAZ/ SOLANGE GONZALES APRN/ TAMMY DUGGAN APRN IN THE OFFICE ON AUGUST 29, 2020 @ [address] SANTOS, NEUROLOGIST, FOLLOW UP SCHEDULED. [facility] APPOINTMENT 08/23/2020 @ 145 PM. CODE STATUS: FULL CODE. HOME O2: 2 L/M PER N/C CONTINUOUS. [facility]LLOW [facility]UIDEL[facility]. TAKE THESE MEDICATIONS AT HOME: Acetaminophen (Acetaminophen 325 Mg Tablet) 650 mg PO Q4H PRN PRN Reason: Headache Al Hydroxide/Mg Hydroxide (Mag Hydrox/Al Hydrox/Simeth 30 Ml Cup) 30 ml PO DAILY PRN PRN Reason: Heartburn Alprazolam (Alprazolam 0.5 Mg Tablet) 0.5 mg PO TID [facility] Last Admin: 08/22/20 09:21 Dose: 0.5 mg Documented by: Amlodipine Besylate (Amlodipine Besylate 5 Mg Tablet) 5 mg PO BEDTIME [facility] Last Admin: 08/21/20 20:25 Dose: 5 mg Documented by: Aspirin (Aspirin 81 Mg Tab.Chew) 81 mg PO DAILYWM [facility] Last Admin: 08/22/20 09:20 Dose: 81 mg Documented by: Atorvastatin Calcium (Atorvastatin Calcium 20 Mg Tablet) 40 mg PO DAILY [facility] Last Admin: 08/22/20 09:22 Dose: 40 mg Documented by: Clonidine (Clonidine Hcl 0.1 Mg Tablet) 0.2 mg PO BID [facility] Last Admin: 08/22/20 09:20 Dose: 0.2 mg Documented by: Clopidogrel Bisulfate (Clopidogrel Bisulfate 75 Mg Tablet) 75 mg PO DAILY [facility] Last Admin: 08/22/20 09:23 Dose: 75 mg Documented by: Clotrimazole (Clotrimazole/Betamethasone 45 Gm Cream) 1 applic TP BID [facility] Last Admin: 08/22/20 09:31 Dose: 1 applic Documented by: Ezetimibe (Ezetimibe 10 Mg Tablet) 10 mg PO DAILY [facility] Last Admin: 08/22/20 09:21 Dose: 10 mg Documented by: Furosemide (Furosemide 40 Mg Tablet) 40 mg PO QDAC [facility] Last Admin: 08/22/20 05:32 Dose: 40 mg Documented by: Metolazone (Metolazone 2.5 Mg Tablet) 2.5 mg PO MOWEFR PRN PRN Reason: EDEMA Metoprolol Tartrate (Metoprolol Tartrate 50 Mg Tablet) 50 mg PO BID [facility] Last Admin: 08/22/20 09:20 Dose: 50 mg Documented by: Morphine Sulfate (Morphine Sulfate 15 Mg Tablet.Er) 15 mg PO Q12HR [facility] Last Admin: 08/22/20 09:22 Dose: 15 mg Documented by: Mupirocin (Mupirocin 22 Gm Oint) 1 applic TP BID [facility] Stop: 08/23/20 08:59 Last Admin: 08/22/20 09:30 Dose: 1 applic Documented by: Nitroglycerin (Nitroglycerin 0.4 Mg Tab.Subl) 0.4 mg SL Q5MIN X 3 DOSES PRN PRN Reason: Chest Pain Nortriptyline HCl (Nortriptyline Hcl 10 Mg Capsule) 50 mg PO BEDTIME [facility] Last Admin: 08/21/20 20:26 Dose: 50 mg Documented by: Oxycodone HCl (Oxycodone Hcl 5 Mg Tablet) 30 mg PO Q4H PRN PRN Reason: BREAKTHROUGH PAIN Last Admin: 08/22/20 05:31 Dose: 30 mg Documented by: Pantoprazole Sodium (Pantoprazole Sodium 40 Mg Tablet.Dr) 40 mg PO BIDAC [facility] Last Admin: 08/22/20 05:31 Dose: 40 mg Documented by: Polyethylene Glycol (Polyethylene Glycol 17 Gm Powd.Pack) 17 gm PO BID PRN PRN Reason: Constipation Last Admin: 08/20/20 15:39 Dose: 17 gm Documented by: Potassium Chloride (Potassium Chloride 20 Meq Tab) 20 meq PO BIDWM [facility] Last Admin: 08/22/20 09:23 Dose: 20 meq Documented by: Ropinirole HCl (Ropinirole Hcl 1 Mg Tablet) 2 mg PO BEDTIME [facility] Last Admin: 08/21/20 20:25 Dose: 2 mg Documented by: Tamsulosin HCl (Tamsulosin Hcl 0.4 Mg Cap.Er.24h) 0.4 mg PO QPM [facility] Last Admin: 08/21/20 17:31 Dose: 0.4 mg Documented by: Trazodone HCl (Trazodone Hcl 50 Mg Tablet) 150 mg PO BEDTIME [facility] Last Admin: 08/21/20 20:24 Dose: 150 mg Documented by: Zolpidem Tartrate (Zolpidem Tartrate 5 Mg Tablet) 10 mg PO BEDTIME [facility] Last Admin: 08/21/20 20:25 Dose: 10 mg Documented by: DOXYCYCLINE 100 MG PO EVERY 12 HOURS X 10 DAYS, START 08/23/2020. ALLERGIES: lisinopril [From Zestril] Adverse Reaction (Severe, Verified 08/10/20 20:35) Swelling baclofen Adverse Reaction (Verified 08/10/20 20:35) SHORT OF BREATH DISCONTINUED MEDICATIONS: 1). POTASSIUM 20 MG DAILY 2). PROTONIX 20 MG DAILY NEW PRESCRIPTIONS: 1). DOXYCYCLINE 100 MG PO EVERY 12 HOURS X 10 DAYS, START 08/23/2020. 2). POTASSIUM 20 MEQ PO DAILY 3). PROTONIX 40 MG PO DAILY 4). REQUIP 2 MG PO AT BEDTIME 5). MYLANTA 30 ML DAILY PRN 6). BACTROBAN CREAM BID TOPICAL THIN LAYER ONLY TO PUNCTURE WOUND RT LEG SMOKING: N/A DISEASE SPECIFIC EDUCATION: SKIN INFECTION EDEMA COVID GERD LAB REVIEW: 08/22/20 04:40 08/22/20 04:40 08/22/20 04:40: Sodium 139.4, Potassium 4.34, Chloride 101.7, Carbon Dioxide 36.7 H, Anion Gap 5.34, BUN 16.6, Creatinine 1.21 H, Estimated GFR (MDRD) 61.00, BUN/Creatinine Ratio 13.71, Glucose 91.9, Calcium 8.77, Total Bilirubin 0.37, AST 18.7, ALT 8.1, Alkaline Phosphatase 108.0, Total Protein 6.31, Albumin 3.31 L, Globulin 3.00, Albumin/Globulin Ratio 1.10 08/22/20 04:40: WBC 8.70, RBC 4.78, Hgb 13.3 L, Hct 41.9 L, MCV 87.7, MCH 27.8, MCHC 31.7 L, RDW Coeff of Lety 13.9, Plt Count 202, Immature Gran % (Auto) 0.3, Neut % (Auto) 58.2, Lymph % (Auto) 29.9, [place] % (Auto) 7.6, Eos % (Auto) 3.3, Baso % (Auto) 0.7, Neut # (Auto) 5.1, Lymph # (Auto) 2.6, [place] # (Auto) 0.7, Eos # (Auto) 0.3, Baso # (Auto) 0.1, Immature Gran # (Auto) 0.0 ACTIVITY: UP WITH CANE DIRECTED PER THERAPY ELEVATE LEGS ABOVE THE HIPS MUCH POSSIBLE FALL PRECAUTIONS OXYGEN PRECAUTIONS PROTECT LOWER EXTREMITIES, KEEP CLEAN AND FROM TRAUMA AND EXTREME TEMPERATURE CHANGES AND EXPOSURE DIET: HEART HEALTHY, NO SPICES AND LOW [place] HOSPITAL COURSE: The patient was a direct admit from the office. The patient came in and had been to the emergency room with an abrasion puncture wound to right lower extremity. He has severe peripheral vascular disease. He presented to the office for followup and was found to have +3 pitting right lower extremity with tender and had 1cm area of abrasion with surrounding erythema up to the knee. He was admitted and placed on Rocephin 1gram IV daily along with Doxycycline 100mg IV Q 12 hours. Wound Culture was done which was negative. Over the course of several days the swelling of his right lower extremities significantly improved. Venous scan was negative. He did report some increased pain yesterday and repeated a venous scan which was also negative. A repeat would culture was done which again was negative. He has never ran any fever today on day of discharge. The area of erythema has improved. He does have a small area of induration about 1inch surrounding the area of abrasion. He has agreed to go to [facility]. He has an appointment for tomorrow at 1:45pm at [facility]. He will go home on Doxycycline 100mg PO BID and he is instructed to keep his legs elevated and drink plenty of water. We will followup with him closely in the office. Labs have been stable. TIME SPENT: More than 60 minutes. REENA
--- NOTE | 2020-08-26 13:35 | PN ---
DATE OF SERVICE: 08/21/20 SUBJECTIVE: 60-year-old white male hospitalized with right lower extremity cellulitis after he poked the wound with a stick. The patient's swelling is much less. No evidence of cellulitis. The patient has a scab which is draining pus, could be a little deeper. The patient is to be seen by wound care on Wednesday. The patient is on antibiotics. The patient has reflux type of symptoms. His cardiovascular status is stable. REVIEW OF SYSTEMS: CONSTITUTIONAL: No night sweats. No fatigue, malaise, lethargy. No fever or chills. HEENT: Eyes: No visual changes. No eye pain. No eye discharge. ENT: No runny nose. No epistaxis. No sinus pain. No sore throat. No odynophagia. No congestion. RESPIRATORY: No cough, no congestion. No hemoptysis. No shortness of breath. CARDIOVASCULAR: No angina symptoms. No CHF symptoms. No atypical chest pain for CAD. No palpitations. No PND. No orthopnea. GASTROINTESTINAL: Reflux type of symptoms. No abdominal pain. No nausea or vomiting. No diarrhea or constipation. No hematemesis. No hematochezia. GENITOURINARY: No urgency. No frequency. No dysuria. No hematuria. No obstructive symptoms. No discharge. No pain. No significant abnormal bleeding. MUSCULOSKELETAL: No musculoskeletal pain; no joint swelling. NEUROLOGICAL: No headache. No neck pain. No syncope. No seizures. No dizziness. PSYCHIATRIC: Not anxious. No depression. No suicidal thoughts. No homicidal thoughts. SKIN: No rash. No lesions. No wounds. ENDOCRINE: No unexplained weight loss. No weight gain. HEMATOLOGIC/LYMPHATIC: No anemia. No purpura. No petechiae. No prolonged or excessive bleeding. No palpable lymph nodes. PHYSICAL EXAMINATION: VITAL SIGNS: Temperature 97, pulse 64, respiratory rate 18, blood pressure 110/65, pulse ox 93% on room air. HEENT: Head normocephalic, atraumatic. Eyes: Extraocular muscles are intact. Pupils are equal, round and reactive to light and accommodation. Ears: No lesions. Nose appeared normal. Throat: No exudate or erythema. NECK: Supple. No JVD, no carotid bruit. No lymphadenopathy or thyromegaly. LUNGS: Decreased breath sounds but clear to auscultation. Percussion note normal. Chest symmetrical. HEART: S1, S2, no S3. No murmurs. No cyanosis or clubbing. No ascites. Pulses: Dorsalis pedis and posterior tibial pulses +1 to +2 bilaterally. ABDOMEN: Soft. Nontender. Bowel sounds active. No CVA tenderness. No mass felt. EXTREMITIES: No edema. Full range of motion of all extremities, equal. NEUROLOGIC: No focal deficit. Cranial nerves II through XII are grossly intact. No headache. No double vision. SKIN: Not dry. Intact. Turgor - normal. LYMPHATIC: No palpable lymph nodes/no lymphedema. MUSCULOSKELETAL: Normal joints with no swelling. Muscle tone is normal. LABS: Hemoglobin 13.8, hematocrit 42, WBC 8,800, normal differential. Creatinine 1.3, BUN 17, potassium 3.9. SARS negative. ASSESSMENT: 1. CELLULITIS OF RIGHT LOWER EXTREMITY SEEMS TO HAVE RESOLVED WITH ULCER DRAINING NOW CLEAR FLUID, MAY HAVE A TRACT THERE. 2. CHRONIC LEG EDEMA WITH CHRONIC DARK PIGMENTATION OF BOTH LOWER EXTREMITIES WITH DERMATITIS. 3. HYPERTENSION. 4. GENERALIZED OSTEOARTHRITIS WITH NEUROPATHY. 5. BILATERAL SCIATICA. THE PATIENT IS SEDENTARY, POSTURE IS POOR. 6. HE HAS REFLUX TYPE OF SYMPTOMS AND IS BEING TREATED FOR IT. 7. THE PATIENT WAS REFERRED TO WOUND CARE. DRAINAGE IS MILD. CELLULITIS HAS RESOLVED. HE HAS DARK PIGMENTATION FROM HEMOSIDERIN DEPOSITION. CHRONIC EDEMA WHICH IS MAINLY DEPENDENT EDEMA. PLAN: 1. The patient is advised to keep his legs up. 2. Cut down on salt intake. 3. His BMI is 33. Advised to lose weight. CONDITION: Stable. TIME SPENT: More than 30 minutes. Plan and coordination of the patient's care discussed in the presence of nurse. REENA
--- NOTE | 2020-08-26 13:56 | PN ---
DATE OF SERVICE: 08/22/20 SUBJECTIVE: The patient was seen and examined with the nurse practitioner. The patient's cellulitis has resolved. There is an ulcer with some drainage. Wound Care is going to see the patient as an outpatient tomorrow. He will be discharged home on antibiotics. Condition: Stable. TIME SPENT: More than 30 minutes. Plan and coordination of the patient's care discussed in the presence of nurse. REENA
--- NOTE | 2020-08-26 14:00 | PN ---
BILLING 08/15/20 ADMISSION DAY LEVEL 5 08/16/20 INTERMEDIATE 08/17/20 INTERMEDIATE 08/18/20 INTERMEDIATE 08/19/20 INTERMEDIATE 08/20/20 INTERMEDIATE 08/21/20 INTERMEDIATE 08/22/20 D IN DISCHARGE MTDD
== END 2020-08-22 19:48 | disposition home or self-care (01) | DRG 301 ==
LOC: LAB 12:17 → MEDSURG A 13:32
PROVIDERS: ADMIT Internal Medicine; ATTEND Internal Medicine